=== PATIENT | male | born 1980 | race Caucasian/White ===

== ENCOUNTER 2017-09-21 12:03 | Emergency (ER) | payer BC, OTHER ==
[2017-09-21] MEDS ORDERED: ORPHENADRINE 30 MG/ML 2 ML VIAL IM STA (13:30)
[2017-09-21] MEDS ORDERED: KETOROLAC 60 MG/2 ML VIAL IM STA (13:30)
--- NOTE | 2017-09-21 13:41 | ED ---
General Adult HPI - General Chief complaint: Back Pain/Injury Stated complaint: Back pain Time Seen by Provider: 09/21/17 13:16 Source: patient, RN notes reviewed Mode of arrival: ambulatory Limitations: no limitations - History of Present Illness Initial comments: Patient 37-year-old male who presents emergency room today with chief complaint of increased lower back pain 2 days. He states that he will to sit on a chair that was lower than expected felt pain in his lower back. States that since that time the pain has been increasing is having difficult time with movements of rotation and bending and twisting. Patient doesn't to some pain radiating down into the right leg. Denies any bowel or bladder incontinence retention. Denies any saddle anesthesia. Doesn't that he's had similar symptoms in the past. Patient states she's tried some anti-inflammatories and has not taken anything this morning. Patient denies any recent fever, chills, shortness of breath, chest pain, abdominal pain, nausea or vomiting, dysuria or hematuria, constipation or diarrhea, headaches or visual changes, or any other complaints. - Related Data Previous Rx's Medication Instructions Recorded HYDROcodone/APAP 5-325MG [[place] 1 each PO Q6HR PRN #20 tab 09/05/14 5-325] Ibuprofen [Motrin] 800 mg PO Q8HR PRN #30 tab 09/05/14 Orphenadrine [Norflex] 100 mg PO Q12H PRN #6 tablet.er 09/05/14 Ibuprofen [Motrin] 800 mg PO Q6HR #30 tab 09/21/17 Orphenadrine [Norflex] 100 mg PO Q12H #20 tablet.er 09/21/17 Allergies Allergy/AdvReac Type Severity Reaction Status Date / Time dextromethorphan Allergy Swelling Verified 09/21/17 12:34 diphenhydramine HCl Allergy Swelling Verified 09/21/17 12:34 [From Benadryl] Review of Systems ROS Statement: Those systems with pertinent positive or pertinent negative responses have been documented in the HPI. ROS Other: All systems not noted in ROS Statement are negative. Past Medical History Additional Past Medical History / Comment(s): back pain History of Any Multi-Drug Resistant Organisms: None Reported Past Surgical History: No Surgical Hx Reported Past Psychological History: No Psychological Hx Reported Smoking Status: Former smoker Past Alcohol Use History: Occasional Past Drug Use History: None Reported General Exam - General Exam Comments Initial Comments: General: The patient is awake and alert, in no distress, and does not appear acutely ill. Eye: Pupils are equal, round and reactive to light, extra-ocular movements are intact. No nystagmus. There is normal conjunctiva bilaterally. No signs of icterus. Ears, nose, mouth and throat: There are moist mucous membranes and no oral lesions. Neck: The neck is supple, there is no tenderness or JVD. Cardiovascular: There is a regular rate and rhythm. No murmur, rub or gallop is appreciated. Respiratory: Lungs are clear to auscultation, respirations are non-labored, breath sounds are equal. No wheezes, stridor, rales, or rhonchi. Musculoskeletal: Patient shows limited range of motion due to pain. Pain reproducible with rotation and with bending. No tenderness over thoracic or lumbar spine. No step-off or deformity. No specific bony tenderness. Strength 5/5 in extremities. Sensation intact. Pulses equal bilaterally 2+. Neurological: A&O x 3. CN II-XII intact, There are no obvious motor or sensory deficits. Coordination appears grossly intact. Speech is normal. Skin: Skin is warm and dry and no rashes or lesions are noted. Psychiatric: Cooperative, appropriate mood & affect, normal judgment. Limitations: no limitations Course Vital Signs 09/21/17 12:32 Temperature 97.3 F L Pulse Rate 72 Respiratory 18 Rate Blood Pressure 125/90 O2 Sat by Pulse 97 Oximetry Medical Decision Making - Medical Decision Making Patient given dose of Toradol and Norflex rhythm emergency room. Will be discharged home with anti-inflammatories and muscle relaxers. Advised the muscle relaxant may make him drowsy. Advised follow-up the family doctor for further evaluation and possible MRI if symptoms aren't improving. Advised return here to the emergency room if any symptoms increase or worsen or for any other concerns. Disposition Clinical Impression: Acute low back pain Disposition: HOME SELF-CARE Condition: Good Instructions: Acute Low Back Pain (ED) Additional Instructions: Please use medication as discussed. Please follow-up with family doctor in the next 2 days of symptoms have not improved. Please return to emergency room if the symptoms increase or worsen or for any other concerns. Prescriptions: Ibuprofen [Motrin] 800 mg PO Q6HR #30 tab Orphenadrine [Norflex] 100 mg PO Q12H #20 tablet.er Referrals: None,Stated [Primary Care Provider] - 1-2 days Ana Lilia Nicole DO [Doctor of Osteopathic Medicine] - 1-2 days Time of Disposition: 13:40
[2017-09-21 14:10] VITALS: BP 129/80; PULSE 80; RESP 20; TEMP 97.8
== END 2017-09-21 14:00 | disposition home or self-care (01) ==
LOC: EC 12:03
DX: M54.5 Low back pain (principal); M79.604 Pain in right leg; Z87.891 Personal history of nicotine dependence; Z88.8 Allergy status to other drugs, medicaments and biological substances
CPT/HCPCS: 99283; 96372 ×2; J2360; J1885

== ENCOUNTER 2019-11-02 19:07 | Emergency (ER) | payer BC ==
[2019-11-02 19:13] VITALS: RESP 18
[2019-11-02 19:36] LABS: Basophils # (A) 0.1 k/uL (0-0.2); Basophils % (A) 2 %; Eosinophils # (A) 0.2 k/uL (0-0.7); Eosinophils % (A) 2 %; HCT 45.1 % (39.0-53.0); HGB 15.5 gm/dL (13.0-17.5); Lymphocytes # (A) 2.8 k/uL (1.0-4.8); Lymphocytes % (A) 33 %; MCH 29.1 pg (25.0-35.0); MCHC 34.4 g/dL (31.0-37.0); MCV 84.6 fL (80.0-100.0); Monocytes # (A) 0.4 k/uL (0-1.0); Monocytes % (A) 4 %; Neutrophils # (A) 4.6 k/uL (1.3-7.7); Neutrophils % (A) 56 %; Platelet Count 226 k/uL (150-450); RBC 5.33 m/uL (4.30-5.90); RDW 13.4 % (11.5-15.5); WBC 8.2 k/uL (3.8-10.6)
[2019-11-02 19:50] LABS: ALT 59 U/L (4-49); AST 43 U/L (17-59); African American GFR (CKD) >90 (>60 ml/min/1.73 sqM); Albumin 4.8 g/dL (3.5-5.0); Alkaline Phosphatase 52 U/L (38-126); Anion Gap 9 mmol/L; Blood Urea Nitrogen 17 mg/dL (9-20); Calcium 9.6 mg/dL (8.4-10.2); Carbon Dioxide 26 mmol/L (22-30); Chloride 104 mmol/L (98-107); Glucose 95 mg/dL (74-99); Non-African American GFR(CKD) >90 (>60 ml/min/1.73 sqM); Potassium 4.1 mmol/L (3.5-5.1); Sodium 139 mmol/L (137-145); Total Bilirubin 0.4 mg/dL (0.2-1.3); Total Protein 7.5 g/dL (6.3-8.2)
[2019-11-02 19:57] LABS: D-Dimer <0.17 mg/L FEU (<0.60); INR 0.9 (<1.2); Partial Thromboplastin Time 22.9 sec (22.0-30.0); Prothrombin Time 9.8 sec (9.0-12.0)
--- NOTE | 2019-11-02 20:18 | XR ---
EXAMINATION TYPE: XR chest 2V DATE OF EXAM: 11/02/2019 COMPARISON: NONE HISTORY: Chest tightness TECHNIQUE: FINDINGS: Heart and mediastinum are normal. Lungs are clear. Diaphragm is normal. Bony thorax appears normal. IMPRESSION: Normal chest
--- NOTE | 2019-11-02 21:51 | ED ---
Chest Pain HPI - General Chief Complaint: Chest Pain Stated Complaint: chest tightness Time Seen by Provider: 11/02/19 21:09 Source: patient Mode of arrival: ambulatory - History of Present Illness Initial Comments: This patient is a 39-year-old man who presents to be evaluated for substernal chest tightness that had developed a little over 24 hours ago. Patient states that it had developed after he had come home and tried to go to bed following eating a meal at [employer] with a friend. Complaint: chest pain Onset/Timin -: hour(s) Onset: during rest Pain Location: substernal Pain Radiation: none Severity: moderate Quality: tightness Consistency: constant Improves With: nothing Worsens With: nothing Treatments Prior to Arrival: none - Related Data Previous Rx's Medication Instructions Recorded Ibuprofen [Motrin] 800 mg PO Q6HR #30 tab 09/21/17 Orphenadrine [Norflex] 100 mg PO Q12H #20 tablet.er 09/21/17 Allergies Allergy/AdvReac Type Severity Reaction Status Date / Time dextromethorphan Allergy Swelling Verified 11/02/19 19:13 diphenhydramine HCl Allergy Swelling Verified 11/02/19 19:13 [From Benadryl] Review of Systems ROS Statement: Those systems with pertinent positive or pertinent negative responses have been documented in the HPI. ROS Other: All systems not noted in ROS Statement are negative. Constitutional: Denies: fever, chills Respiratory: Denies: cough, dyspnea, wheezes Cardiovascular: Reports: chest pain. Denies: palpitations, orthopnea, edema, syncope Gastrointestinal: Denies: abdominal pain, nausea, vomiting Musculoskeletal: Denies: back pain Skin: Denies: rash Neurological: Denies: headache, weakness EKG Findings - EKG Results: EKG: interpreted by MADHURI LARA, sinus rhythm (Rate 90 bpm), normal axis, normal QRS, normal ST/T, no acute changes - CA, Pacemaker, Normal: Normal tracing: normal tracing Past Medical History Additional Past Medical History / Comment(s): back pain, History of Any Multi-Drug Resistant Organisms: None Reported Past Surgical History: Orthopedic Surgery Past Psychological History: No Psychological Hx Reported Smoking Status: Former smoker Past Alcohol Use History: Rare Past Drug Use History: None Reported General Exam General appearance: alert, in no apparent distress Head exam: Present: atraumatic, normocephalic Eye exam: Present: normal appearance. Absent: scleral icterus, conjunctival injection ENT exam: Present: normal oropharynx Neck exam: Present: normal inspection Respiratory exam: Present: normal lung sounds bilaterally. Absent: respiratory distress, wheezes, rales, rhonchi, stridor, chest wall tenderness, accessory muscle use Cardiovascular Exam: Present: regular rate, normal rhythm, normal heart sounds. Absent: systolic murmur, diastolic murmur, rubs, gallop GI/Abdominal exam: Present: soft. Absent: distended, tenderness, guarding, rebound, rigid, mass Extremities exam: Present: normal inspection, normal capillary refill. Absent: pedal edema, calf tenderness Back exam: Present: normal inspection. Absent: CVA tenderness (R), CVA tenderness (L) Neurological exam: Present: alert Skin exam: Present: warm, dry, intact, normal color. Absent: rash Course Vital Signs 11/02/19 11/02/19 19:11 21:27 Temperature 97.5 F L Pulse Rate 100 71 Respiratory 18 18 Rate Blood Pressure 156/93 131/84 O2 Sat by Pulse 100 95 Oximetry Disposition Clinical Impression: Chest pain Disposition: HOME SELF-CARE Condition: Good Instructions (If sedation given, give patient instructions): Chest Pain (ED) Is patient prescribed a controlled substance at d/c from ED?: No Referrals: None,Stated [Primary Care Provider] - 1-2 days Saul Espinoza MD [STAFF PHYSICIAN] - 1-2 days
[2019-11-02 22:58] VITALS: BP 125/81; PULSE 64; TEMP 97.7
== END 2019-11-02 22:59 | disposition home or self-care (01) ==
LOC: EC 19:07
DX: R07.9 Chest pain, unspecified (principal); Z87.891 Personal history of nicotine dependence; Z88.8 Allergy status to other drugs, medicaments and biological substances
CPT/HCPCS: 36415; 71046; 80053; 83735; 84484; 85025; 85379; 85610; 85730; 93005; 99285

== ENCOUNTER 2020-06-09 17:24 | Emergency (ER) | payer BC ==
[2020-06-09 17:34] VITALS: RESP 16
[2020-06-09] MEDS ORDERED: SODIUM CHLORIDE 0.9% 1,000 ML IV ONE (19:35)
[2020-06-09 19:48] LABS: Basophils # (A) 0.1 k/uL (0-0.2); Basophils % (A) 1 %; Eosinophils # (A) 0.1 k/uL (0-0.7); Eosinophils % (A) 1 %; HCT 46.2 % (39.0-53.0); HGB 15.4 gm/dL (13.0-17.5); Lymphocytes # (A) 2.5 k/uL (1.0-4.8); Lymphocytes % (A) 23 %; MCH 28.1 pg (25.0-35.0); MCHC 33.3 g/dL (31.0-37.0); MCV 84.4 fL (80.0-100.0); Mean Platelet Volume 7.3; Monocytes # (A) 0.4 k/uL (0-1.0); Monocytes % (A) 4 %; Neutrophils # (A) 7.8 k/uL (1.3-7.7); Neutrophils % (A) 70 %; Platelet Count 232 k/uL (150-450); RBC 5.48 m/uL (4.30-5.90); RDW 13.4 % (11.5-15.5); WBC 11.1 k/uL (3.8-10.6)
--- NOTE | 2020-06-09 19:48 | ED ---
General Adult HPI - General Chief complaint: Headache Stated complaint: sent from urgent care Time Seen by Provider: 06/09/20 18:59 Source: patient, RN notes reviewed, old records reviewed Mode of arrival: ambulatory Limitations: no limitations - History of Present Illness Initial comments: 39-year-old male patient presents to ED for evaluation. Patient reports that the chief reason eyes, the hospitalist at about 3:00 [address] was [address] he states that he had paresthesias which were unilateral on the left side. He reports it lasted about 15 minutes. Patient reports that he had a little bit of blurred vision shortly after she last maybe 5 minutes and then resolved. Patient reports these had a mild waxing and waning frontal lobe headache over the last couple days. Patient also reports that yesterday he had some right-sided pleuritic chest pain which resolved. Patient did hit that area with a car door about a week prior. Denies any chest pain or shortness breath now. Denies any paresthesias headache or blurred vision currently. Patient denies any recent trauma to the head of the neck and also declines a recurrence any facial droop or any weakness in the upper or lower extremities. He does report that the paresthesias didn't involve the left side of the face, as well as the left arm and leg. Systemic: Pt denies fatigue, fever/chills, rash. Pt denies weakness, night sweats, weight loss. Neuro: Pt denies headache, visual disturbances, syncope or pre-syncope. HEENT: Pt denies ocular discharge or irritation, otalgia, rhinorrhea, pharyngitis or notable lymphadenopathy. Cardiopulmonary: Pt denies SOB, heart palpitations, dyspnea on exertion. Abdominal/GI: Pt denies abdominal pain, n/v/d. : Pt denies dysuria, burning w/ urination, frequency/urgency. Denies new onset urinary or bowel incontinence. MSK: Pt denies myalgia, loss of strength or function in extremities. Neuro: Pt denies new onset weakness. - Related Data Home Medications Medication Instructions Recorded Confirmed No Known Home Medications 06/09/20 06/09/20 Allergies Allergy/AdvReac Type Severity Reaction Status Date / Time dextromethorphan Allergy Swelling Verified 06/09/20 19:54 diphenhydramine HCl Allergy Swelling Verified 06/09/20 19:54 [From Benadryl] Review of Systems ROS Statement: Those systems with pertinent positive or pertinent negative responses have been documented in the HPI. ROS Other: All systems not noted in ROS Statement are negative. Past Medical History Additional Past Medical History / Comment(s): back pain, History of Any Multi-Drug Resistant Organisms: None Reported Past Surgical History: Orthopedic Surgery Past Psychological History: No Psychological Hx Reported Smoking Status: Never smoker Past Alcohol Use History: Rare Past Drug Use History: None Reported General Exam - General Exam Comments Initial Comments: Constitutional: NAD, AOX3, Pt has pleasant affect. HEENT: NC/AT, trachea midline, neck supple, no lymphadenopathy. Posterior pharynx non erythematous, without exudates. External ears appear normal, without discharge. Mucous membranes moist. Eyes PERRLA, EOM intact. There is no scleral icterus. No pallor noted. Cardiopulmonary: RRR, no murmurs, rubs or gallops, no JVD noted. Lungs CTAB in anterior and posterior hassan. No peripheral edema. Abdominal exam: Abdomen soft and non-distended. Abdomen non-tender to palpation in all 4 quadrants. Bowel sounds active in LLQ. No hepatosplenomegaly. No ecchymosis Neuro: CN II-XII intact. No nuchal rigidity. No raccon eyes, no simon sign, no hemotympanum. No cervical spinal tenderness. NIH 0. MSK: No posterior calf tenderness bilaterally, homans sign negative bilaterally. Posterior tibialis and radial pulse +2 bilaterally. Sensation intact in upper and lower extremities. Full active ROM in upper and lower extremities, 5/5 stregnth. Limitations: no limitations Course Vital Signs 06/09/20 06/09/20 17:29 19:11 Temperature 97.9 F Pulse Rate 88 93 Respiratory 16 16 Rate Blood Pressure 155/100 149/101 O2 Sat by Pulse 98 98 Oximetry Medical Decision Making - Medical Decision Making 39-year-old male patient presented for evaluation of paresthesias left-sided congestive since resolved. Denying any complaints at time of evaluation. Patient vital signs are stable, afebrile. Physical exam did not display acute pathology. Intact neurologic exam. EKG nonischemic. Laboratory investigations overall noncompressive. D-dimer negative troponin negative. Brain CT without contrast negative. Chest abd pelvis without contrast negative. Angiography CT head and neck negative. Patient's symptoms are consistent with a TIA. He was administered an aspirin. I recommended transfer to facility with neurology coverage this ED declining. Patient splaying adequate decision-making advice. I discussed with patient the risks of which he verbalizes understanding including severe stroke in the stable not. Patient will take an aspirin a day and will follow-up with his primary care provider tomorrow. Patient will be given neurologist's in the area however Patient that we do not have local coverage for neurology. Case discussed with Dr. Tubbs. - Lab Data Result diagrams: 06/09/20 19:28 06/09/20 19:28 Lab Results 06/09/20 06/09/20 06/09/20 Range/Units 19:28 19:28 19:28 WBC 11.1 H (3.8-10.6) k/uL RBC 5.48 (4.30-5.90) m/uL Hgb 15.4 (13.0-17.5) gm/dL Hct 46.2 (39.0-53.0) % MCV 84.4 (80.0-100.0) fL MCH 28.1 (25.0-35.0) pg MCHC 33.3 (31.0-37.0) g/dL RDW 13.4 (11.5-15.5) % Plt Count 232 (150-450) k/uL Neutrophils % 70 % Lymphocytes % 23 % Monocytes % 4 % Eosinophils % 1 % Basophils % 1 % Neutrophils # 7.8 H (1.3-7.7) k/uL Lymphocytes # 2.5 (1.0-4.8) k/uL Monocytes # 0.4 (0-1.0) k/uL Eosinophils # 0.1 (0-0.7) k/uL Basophils # 0.1 (0-0.2) k/uL PT 9.9 (9.0-12.0) sec INR 0.9 (<1.2) APTT 24.3 (22.0-30.0) sec D-Dimer <0.17 (<0.60) mg/L FEU Sodium 140 (137-145) mmol/L Potassium 4.0 (3.5-5.1) mmol/L Chloride 103 (98-107) mmol/L Carbon Dioxide 30 (22-30) mmol/L Anion Gap 7 mmol/L BUN 11 (9-20) mg/dL Creatinine 0.98 (0.66-1.25) mg/dL Est GFR (CKD-EPI)AfAm >90 (>60 ml/min/1.73 sqM) Est GFR (CKD-EPI)NonAf >90 (>60 ml/min/1.73 sqM) Glucose 92 (74-99) mg/dL Calcium 9.5 (8.4-10.2) mg/dL Magnesium 2.3 (1.6-2.3) mg/dL Total Bilirubin 0.4 (0.2-1.3) mg/dL AST 34 (17-59) U/L ALT 48 (4-49) U/L Alkaline Phosphatase 49 (38-126) U/L Troponin I (0.000-0.034) ng/mL NT-Pro-B Natriuret Pep pg/mL Total Protein 7.3 (6.3-8.2) g/dL Albumin 4.8 (3.5-5.0) g/dL Urine Color Urine Appearance (Clear) Urine pH (5.0-8.0) Ur Specific [place] (1.001-1.035) Urine Protein (Negative) Urine Glucose (UA) (Negative) Urine Ketones (Negative) Urine Blood (Negative) Urine Nitrite (Negative) Urine Bilirubin (Negative) Urine Urobilinogen (<2.0) mg/dL Ur Leukocyte Esterase (Negative) 06/09/20 06/09/20 06/09/20 Range/Units 19:28 19:28 19:28 WBC (3.8-10.6) k/uL RBC (4.30-5.90) m/uL Hgb (13.0-17.5) gm/dL Hct (39.0-53.0) % MCV (80.0-100.0) fL MCH (25.0-35.0) pg MCHC (31.0-37.0) g/dL RDW (11.5-15.5) % Plt Count (150-450) k/uL Neutrophils % % Lymphocytes % % Monocytes % % Eosinophils % % Basophils % % Neutrophils # (1.3-7.7) k/uL Lymphocytes # (1.0-4.8) k/uL Monocytes # (0-1.0) k/uL Eosinophils # (0-0.7) k/uL Basophils # (0-0.2) k/uL PT (9.0-12.0) sec INR (<1.2) APTT (22.0-30.0) sec D-Dimer (<0.60) mg/L FEU Sodium (137-145) mmol/L Potassium (3.5-5.1) mmol/L Chloride (98-107) mmol/L Carbon Dioxide (22-30) mmol/L Anion Gap mmol/L BUN (9-20) mg/dL Creatinine (0.66-1.25) mg/dL Est GFR (CKD-EPI)AfAm (>60 ml/min/1.73 sqM) Est GFR (CKD-EPI)NonAf (>60 ml/min/1.73 sqM) Glucose (74-99) mg/dL Calcium (8.4-10.2) mg/dL Magnesium (1.6-2.3) mg/dL Total Bilirubin (0.2-1.3) mg/dL AST (17-59) U/L ALT (4-49) U/L Alkaline Phosphatase (38-126) U/L Troponin I <0.012 (0.000-0.034) ng/mL NT-Pro-B Natriuret Pep 32 pg/mL Total Protein (6.3-8.2) g/dL Albumin (3.5-5.0) g/dL Urine Color Colorless Urine Appearance Clear (Clear) Urine pH 6.0 (5.0-8.0) Ur Specific [place] 1.001 (1.001-1.035) Urine Protein Negative (Negative) Urine Glucose (UA) Negative (Negative) Urine Ketones Negative (Negative) Urine Blood Negative (Negative) Urine Nitrite Negative (Negative) Urine Bilirubin Negative (Negative) Urine Urobilinogen <2.0 (<2.0) mg/dL Ur Leukocyte Esterase Negative (Negative) - EKG Data -: EKG Interpreted by Me (and Dr. Tubbs ) EKG Comments: Ventricular rate 76, NJ interval 172, QRS 86, QT/QTC 370/416. Normal Sinus rhythm, possible septal infarct age undetermined. no concern for acute ischemia at this time. Disposition Clinical Impression: TIA (transient ischemic attack) Disposition: Left Against Medical Advice Condition: Undetermined Instructions (If sedation given, give patient instructions): Transient Ischemic Attack (ED) Additional Instructions: take a daily 325 mg aspirin. Follow-up with primary care provider tomorrow. Follow-up with neurologist's in the area. return to ER if any worsening symptoms. Is patient prescribed a controlled substance at d/c from ED?: No Referrals: None,Stated [Primary Care Provider] - 1-2 days Lucio Mukherjee DO [STAFF PHYSICIAN] - 1-2 days Jennifer Hickman MD [Medical Doctor] - 1-2 days Stephania Edouard MD [REFERRING] - 1-2 days
[2020-06-09 19:54] LABS: Appearance,Urine Clear (Clear); Bilirubin,Urine Negative (Negative); Blood,Urine Negative (Negative); Color,Urine Colorless; Glucose,Urine (UA) Negative (Negative); Ketones,Urine Negative (Negative); Leukocyte Esterase,Urine Negative (Negative); Nitrite,Urine Negative (Negative); Protein,Urine Negative (Negative); Specific Gravity,Urine 1.001 (1.001-1.035); Urobilinogen,Urine <2.0 mg/dL (<2.0)
[2020-06-09 19:57] LABS: ALT 48 U/L (4-49); AST 34 U/L (17-59); African American GFR (CKD) >90 (>60 ml/min/1.73 sqM); Albumin 4.8 g/dL (3.5-5.0); Alkaline Phosphatase 49 U/L (38-126); Anion Gap 7 mmol/L; Blood Urea Nitrogen 11 mg/dL (9-20); Calcium 9.5 mg/dL (8.4-10.2); Carbon Dioxide 30 mmol/L (22-30); Chloride 103 mmol/L (98-107); Glucose 92 mg/dL (74-99); Magnesium 2.3 mg/dL (1.6-2.3); Non-African American GFR(CKD) >90 (>60 ml/min/1.73 sqM); Sodium 140 mmol/L (137-145); Total Bilirubin 0.4 mg/dL (0.2-1.3); Total Protein 7.3 g/dL (6.3-8.2)
[2020-06-09 20:00] LABS: D-Dimer <0.17 mg/L FEU (<0.60); INR 0.9 (<1.2); Partial Thromboplastin Time 24.3 sec (22.0-30.0); Prothrombin Time 9.9 sec (9.0-12.0)
--- NOTE | 2020-06-09 20:03 | CT ---
EXAMINATION TYPE: CT brain wo con DATE OF EXAM: 06/09/2020 COMPARISON: None HISTORY: Left arm tingling and headache. CT DLP: 1143.4 mGycm Automated exposure control for dose reduction was used. Ventricles and sulci appear normal. There is no mass effect nor midline shift. There is no sign of in tracranial hemorrhage. Calvarium is intact. There is no evidence of cerebral edema. Sella turcica maureen ears normal. IMPRESSION: Negative unenhanced head CT scan.
--- NOTE | 2020-06-09 20:18 | CT ---
EXAMINATION TYPE: CT ChestAbdPelvis w con DATE OF EXAM: 06/09/2020 COMPARISON: None HISTORY: Chest and abdominal pain. CT DLP: 2719 mGycm Automated exposure control for dose reduction was used. CONTRAST: Performed with IV Contrast, patient injected with 100ml mL of Isovue 370. Exam performed from the thoracic inlet to the floor the pelvis with IV contrast. FINDINGS: The lungs are clear of consolidation. There is no pleural effusion. There is no mediastinal adenopath y. There are no hilar masses. There is no pericardial effusion. Thoracic aorta is intact. There is no sign of aneurysm or dissection. Liver spleen stomach pancreas gallbladder appear normal. Bile ducts are not dilated. There is no adrenal mass. Kidneys show satisfactory contrast opacification. There is no hydronephrosi s. Ureters are not dilated. Appendix is not seen. There is no sign of thickened appendix. There is no mesenteric edema. There is no ascites or free air. There is no bowel obstruction. The bladder distends smoothly. There is no inguinal hernia. There is no free fluid in the pelvis. The re is no sign of a pelvic mass. Thoracic and lumbar vertebra appear intact. There is no compression fracture. Sternum is intact. Bony pelvis is intact. Delayed images show normal renal excretion. IMPRESSION: Negative CT scan chest abdomen pelvis.
--- NOTE | 2020-06-09 20:34 | CT ---
EXAMINATION TYPE: CT angio head neck DATE OF EXAM: 06/09/2020 COMPARISON: None HISTORY: Left arm tingling and headache. CT DLP: 850.8 mGycm Automated exposure control for dose reduction was used. CONTRAST: Performed with IV Contrast, patient injected with 65ml mL of Isovue 370. There are 3-D post processed images. Images were obtained from the aortic arch to the vertex of the b rain. FINDINGS: There is normal branching pattern of the great vessels on the aortic arch. There is bilateral arteria l flow in the subclavian arteries. There is arterial flow in the vertebral arteries bilaterally. Ther e is arterial flow in the common internal and external carotid arteries bilaterally. There is wide pa tency of the carotid artery bifurcations. There is arterial flow in the anterior middle and posterior cerebral arteries. There is arterial flow in the vertebrobasilar artery system. There is no evidence of intracranial arterial stenosis. There is no aneurysm or neovascularity. There is no mass effect. There is normal contrast opacification of the venous sinuses. IMPRESSION: Normal CT angiogram of the neck. Normal CT angiogram of the brain.
[2020-06-09] MEDS ORDERED: ASPIRIN 325 MG TAB PO STA (20:42)
[2020-06-09 22:43] VITALS: BP 143/102; PULSE 82; TEMP 98
== END 2020-06-09 22:43 | disposition left against medical advice (07) ==
LOC: EC 17:24
DX: G45.9 Transient cerebral ischemic attack, unspecified (principal); Z53.29 Procedure and treatment not carried out because of patient's decision for other reasons; Z88.8 Allergy status to other drugs, medicaments and biological substances
CPT/HCPCS: 36415; 93005; 85379; 83880; 80053; 83735; 84484; 85025; 85610; 85730; 81003; 70496; 70450; 71260; 70498; 74177; 99285; 96360; Q9967

== ENCOUNTER 2020-06-15 00:14 | Observation (INO) | payer BC ==
--- NOTE | 2020-06-15 00:58 | XR ---
EXAMINATION TYPE: XR chest 1V portable DATE OF EXAM: 06/15/2020 COMPARISON: 11/02/2019 HISTORY: Chest pain TECHNIQUE: FINDINGS: Heart and mediastinum are normal. Lungs are clear. Diaphragm is normal. Bony thorax appears normal. There are chest leads. IMPRESSION: Normal chest. No change.
[2020-06-15 01:00] LABS: Basophils # (A) 0.1 k/uL (0-0.2); Basophils % (A) 1 %; Eosinophils # (A) 0.1 k/uL (0-0.7); Eosinophils % (A) 1 %; HCT 43.5 % (39.0-53.0); HGB 15.3 gm/dL (13.0-17.5); Lymphocytes # (A) 2.7 k/uL (1.0-4.8); Lymphocytes % (A) 27 %; MCH 29.2 pg (25.0-35.0); MCHC 35.2 g/dL (31.0-37.0); MCV 82.9 fL (80.0-100.0); Mean Platelet Volume 7.3; Monocytes # (A) 0.6 k/uL (0-1.0); Monocytes % (A) 6 %; Neutrophils # (A) 6.3 k/uL (1.3-7.7); Neutrophils % (A) 63 %; Platelet Count 212 k/uL (150-450); RBC 5.25 m/uL (4.30-5.90); RDW 13.4 % (11.5-15.5)
[2020-06-15 01:09] LABS: ALT 34 U/L (4-49); AST 27 U/L (17-59); African American GFR (CKD) >90 (>60 ml/min/1.73 sqM); Albumin 4.7 g/dL (3.5-5.0); Alkaline Phosphatase 46 U/L (38-126); Anion Gap 11 mmol/L; Blood Urea Nitrogen 14 mg/dL (9-20); Calcium 9.3 mg/dL (8.4-10.2); Carbon Dioxide 22 mmol/L (22-30); Chloride 104 mmol/L (98-107); Glucose 99 mg/dL (74-99); INR 1.1 (<1.2); Non-African American GFR(CKD) >90 (>60 ml/min/1.73 sqM); Partial Thromboplastin Time 24.6 sec (22.0-30.0); Potassium 4.1 mmol/L (3.5-5.1); Prothrombin Time 10.8 sec (9.0-12.0); Sodium 137 mmol/L (137-145); Total Bilirubin 0.8 mg/dL (0.2-1.3); Total Protein 7.1 g/dL (6.3-8.2)
--- NOTE | 2020-06-15 02:09 | ED ---
Chest Pain HPI - General Chief Complaint: Chest Pain Stated Complaint: Chest Tightness Time Seen by Provider: 06/15/20 00:44 Source: EMS Mode of arrival: EMS Limitations: no limitations - History of Present Illness Initial Comments: 's patient is a 39-year-old man who presents to be evaluated for left upper chest pain. Patient states that symptoms came on tonight a couple of hours ago and he had been sleeping and he woke with burning sensation there. Patient did have similar episode a few weeks ago when he also hadn't some tingling and numbness of the extremities and was seen for suspected TIA. Patient states that he had sign out the hospital at that time and has had some concerns ever since. The patient has been having some intermittent chest pains associated with a flushed feeling to his bilateral face ever since he had the suspected TIA. He was directed to follow-up but had not been able to have neurology consultation. He had been seen by his primary physician but had not been entirely satisfied with the progress there and was due to see Dr. Jose Guerrero as a new patient, tomorrow. Complaint: chest pain -: hour(s) Onset: awoke with symptoms Pain Location: left chest Pain Radiation: LUE Severity: moderate Quality: other (Burning) Consistency: now resolved Improves With: nothing Worsens With: nothing Treatments Prior to Arrival: none - Related Data Allergies Allergy/AdvReac Type Severity Reaction Status Date / Time bee venom protein (honey bee) Allergy Swelling Verified 06/15/20 00:21 dextromethorphan Allergy Swelling Verified 06/15/20 00:21 diphenhydramine HCl Allergy Swelling Verified 06/15/20 00:21 [From Benadryl] Review of Systems ROS Statement: Those systems with pertinent positive or pertinent negative responses have been documented in the HPI. ROS Other: All systems not noted in ROS Statement are negative. Constitutional: Denies: fever, chills, weakness Eyes: Denies: vision change Respiratory: Denies: cough, dyspnea Cardiovascular: Reports: as per HPI, chest pain. Denies: palpitations, orthopnea, syncope Gastrointestinal: Denies: abdominal pain, nausea, vomiting, melena, hematochezia Genitourinary: Denies: dysuria, hematuria Musculoskeletal: Denies: back pain Skin: Denies: rash Neurological: Denies: headache, weakness, numbness EKG Findings - EKG Results: EKG: interpreted by MADHURI LARA, sinus rhythm (Rate 71 bpm), normal axis, normal QRS, normal ST/T, no acute changes Past Medical History Additional Past Medical History / Comment(s): back pain, TIA, History of Any Multi-Drug Resistant Organisms: None Reported Past Surgical History: Orthopedic Surgery Past Psychological History: No Psychological Hx Reported Smoking Status: Former smoker Past Alcohol Use History: Rare Past Drug Use History: None Reported General Exam Limitations: no limitations General appearance: alert, in no apparent distress Head exam: Present: atraumatic, normocephalic Eye exam: Present: normal appearance. Absent: scleral icterus, conjunctival injection Neck exam: Present: normal inspection Respiratory exam: Present: normal lung sounds bilaterally. Absent: respiratory distress, wheezes, rales, rhonchi, stridor, chest wall tenderness, accessory muscle use Cardiovascular Exam: Present: regular rate, normal rhythm, normal heart sounds. Absent: systolic murmur, diastolic murmur, rubs, gallop GI/Abdominal exam: Present: soft. Absent: distended, tenderness, guarding, rebound, rigid, mass Extremities exam: Present: normal inspection, normal capillary refill. Absent: pedal edema, calf tenderness Back exam: Present: normal inspection. Absent: CVA tenderness (R), CVA tenderness (L) Neurological exam: Present: alert Skin exam: Present: warm, dry, intact, normal color. Absent: rash Course Vital Signs 06/15/20 06/15/20 06/15/20 00:15 01:12 02:00 Temperature 98.1 F Pulse Rate 83 74 74 Respiratory 18 18 18 Rate Blood Pressure 141/100 133/88 125/83 O2 Sat by Pulse 97 98 98 Oximetry Chest Pain [facility] Patient's 39-year-old man with episode of chest pain that had resolved. He did have a recurrence here in emergency department, ECG was repeated and is normal at this time. As the patient does have extensive family cardiac history, I discussed admission versus outpatient follow-up, and the patient states that given the difficulty of follow-up due to the hand TN, he would first day and this may arranged. Patient stable at time of admission. Dr. Guerrero will accept, as the patient is to establish with him in the morning anyways. Disposition Clinical Impression: Chest pain Disposition: ADMITTED IP TO THIS HOSP Condition: Good Instructions (If sedation given, give patient instructions): Chest Pain (ED) Is patient prescribed a controlled substance at d/c from ED?: No Referrals: Jose Guerrero MD [Primary Care Provider] - 1-2 days
[2020-06-15] MEDS ORDERED: NITROGLYCERIN SL TABS 0.4 MG TAB SUBLINGUAL PRN (02:46)
[2020-06-15 07:39] VITALS: RESP 16
--- NOTE | 2020-06-15 12:28 | P.CRDCN ---
History of Present Illness Consult date: 06/15/20 History of present illness: CHIEF COMPLAINT: Chest pain HISTORY OF PRESENT ILLNESS: This is a 39-year old male with no significant past medical history. Patient follows in the office with Dr. Espinoza. We have been asked to see the patient in consultation for chest pain. Patient examined this morning at the bedside. Patient states he was evaluated in the emergency room on 06/09/2020 secondary to left arm numbness and vision changes. He states he diagnosed with a TIA and placed on aspirin and plavix. Patient presents to the ER with multiple vague symptoms including left arm numbness, facial warmth, and neck pains. He denies any vision difficulty. He currently denies chest pain or shortness of breath. He does report some back discomfort and states he sleeps on his side with his left arm tucked underneath him. Patient was noted to be hypertensive upon admission but his blood pressure is within normal limits this morning. Patient reports he has a history of elevated heart rate when he was evaluated in the emergency room in October 2019 for chest discomfort. However his EKG at that time shows a heart rate in the 90s. He did follow-up with Dr. Espinoza outpatient and underwent a stress test which was negative for significant ischemia. He also had an echocardiogram completed at that time revealing ejection fraction 55% with mild mitral regurgitation and mild tricuspid regurgitation. DIAGNOSTICS: EKG reveals sinus rhythm. Heart rate 71. Chest xray negative for acute process. Laboratory data: WBC 10.0. Hemoglobin 15.3. Platelet count 212. D-dimer less than 0.17. Sodium 137. Potassium 4.1. BUN 14. Creatinine 1.01. Magnesium 2.0. Troponin negative 4 BNP 32. Current home cardiac medications include Plavix 75 mg and aspirin 81 mg daily REVIEW OF SYSTEMS: At the time of my exam: CONSTITUTIONAL: Denies fever or chills. HEENT: Denies blurred vision, vision changes, or eye pain. Denies hemoptysis CARDIOVASCULAR: Denies chest pain, orthopnea, PND or palpitations RESPIRATORY: No shortness of breath. GASTROINTESTINAL: Denies abdominal pain. Denies nausea or vomiting. HEMATOLOGIC: Denies bleeding disorders. GENITOURINARY: Denies any blood in urine. SKIN: Denies pruitis. Denies rash. PHYSICAL EXAM: VITAL SIGNS: Reviewed. GENERAL: Well-developed in no acute distress. HEENT: Head is normocephalic. Pupils are equal, round. Sclerae anicteric. Mucous membranes of the mouth are moist. Neck supple. No JVD or thyromegaly LUNGS: Respirations even and unlabored. Lungs essentially clear to auscultation bilaterally. HEART: Regular rate and rhythm. S1 and S2 heard. ABDOMEN: Soft. Nondistended. Nontender. EXTREMITIES: Normal range of motion. No clubbing or cyanosis. Peripheral pulses intact. No lower extremity edema NEUROLOGIC: Awake and alert. Oriented x 3. ASSESSMENT: Atypical chest pain, no evidence of acute coronary syndrome Left arm numbness and neck pain, likely musculoskeletal in nature Pre-hypertension Questionable history of TIA PLAN: No indications for aspirin and plavix at this time from a cardiac standpoint. Patients history does not sound consistent with TIA. However, will defer to internal medicine if they would like to resume these medications Patient instructed to take his blood pressure on regular basis at home and keep a log. Lifestyle modifications discussed with patient including low salt diet. Will obtain bubble study, if negative patient may be discharged home today from a cardiac standpoint and follow up with Dr. Espinoza. Nurse practitioner note has been reviewed by physician. Signing provider agrees with the documented findings, assessment, and plan of care. Past Medical History Additional Past Medical History / Comment(s): back pain, TIA, high heart rate in 10/2019 had negative stress History of Any Multi-Drug Resistant Organisms: None Reported Past Surgical History: Orthopedic Surgery Additional Past Surgical History / Comment(s): knee surgery Past Anesthesia/Blood Transfusion Reactions: No Reported Reaction Past Psychological History: No Psychological Hx Reported Smoking Status: Former smoker Past Alcohol Use History: Rare Past Drug Use History: None Reported - Past Family History Father Family Medical History: Myocardial Infarction ([place]) Mother Family Medical History: No Reported History Brother(s) Additional Family Medical History / Comment(s): superficial blood clots Daughter(s) Family Medical History: No Reported History Son(s) Additional Family Medical History / Comment(s): L Medications and Allergies Home Medications Medication Instructions Recorded Confirmed Type Aspirin [[place] Aspirin EC] 81 mg PO DAILY 06/15/20 06/15/20 History Clopidogrel Bisulfate [Plavix] 75 mg PO DAILY 06/15/20 06/15/20 History Allergies Allergy/AdvReac Type Severity Reaction Status Date / Time bee venom protein (honey bee) Allergy Swelling Verified 06/15/20 07:40 dextromethorphan Allergy Swelling Verified 06/15/20 07:40 diphenhydramine HCl Allergy Swelling Verified 06/15/20 07:40 [[facility] Physical Exam Vitals: Vital Signs Temp Pulse Pulse Resp BP BP Pulse Ox 06/15/20 08:21 96 06/15/20 07:38 97.7 F 73 16 120/74 97 06/15/20 05:24 97.5 F L 64 18 123/79 98 06/15/20 02:00 74 18 125/83 98 06/15/20 01:12 74 18 133/88 98 06/15/20 00:15 98.1 F 83 18 141/100 97 Intake and Output 06/14/20 06/15/20 06/15/20 22:59 06:59 14:59 Other: Voiding Method Toilet # Voids 1 1 Weight 106.141 kg Results 06/15/20 00:47 06/15/20 00:47 Cardiac Enzymes 06/15/20 06/15/20 06/15/20 Range/Units 00:47 00:47 04:18 AST 27 (17-59) U/L Troponin I <0.012 <0.012 (0.000-0.034) ng/mL 06/15/20 Range/Units 06:59 AST (17-59) U/L Troponin I <0.012 (0.000-0.034) ng/mL Coagulation 06/15/20 Range/Units 00:47 PT 10.8 (9.0-12.0) sec APTT 24.6 (22.0-30.0) sec CBC 06/15/20 Range/Units 00:47 WBC 10.0 (3.8-10.6) k/uL RBC 5.25 (4.30-5.90) m/uL Hgb 15.3 (13.0-17.5) gm/dL Hct 43.5 (39.0-53.0) % Plt Count 212 (150-450) k/uL Comprehensive Metabolic Panel 06/15/20 Range/Units 00:47 Sodium 137 (137-145) mmol/L Potassium 4.1 (3.5-5.1) mmol/L Chloride 104 (98-107) mmol/L Carbon Dioxide 22 (22-30) mmol/L BUN 14 (9-20) mg/dL Creatinine 1.01 (0.66-1.25) mg/dL Glucose 99 (74-99) mg/dL Calcium 9.3 (8.4-10.2) mg/dL AST 27 (17-59) U/L ALT 34 (4-49) U/L Alkaline Phosphatase 46 (38-126) U/L Total Protein 7.1 (6.3-8.2) g/dL Albumin 4.7 (3.5-5.0) g/dL Current Medications Generic Name Dose Route Start Last Admin Trade Name Freq PRN Reason Stop Dose Admin Nitroglycerin 0.4 mg 06/15/20 02:46 Nitroglycerin Sl Tabs 0.4 Mg Tab SUBLINGUAL Q5M PRN Chest Pain Intake and Output 06/14/20 06/15/20 06/15/20 22:59 06:59 14:59 Other: Voiding Method Toilet # Voids 1 1 Weight 106.141 kg 06/15/20 00:47 06/15/20 00:47
[2020-06-15 14:50] VITALS: BP 117/70; PULSE 63; TEMP 97.5
--- NOTE | 2020-06-15 17:37 | HP ---
HISTORY AND PHYSICAL This patient is a 39-year-old white male. He had a stress test in December for chest pain which was negative. He was evaluated a few weeks ago for possible TIA and placed on Plavix and aspirin sounds like a pinched nerve in his neck. He 5-year-old baby and he has been resting with his kids and he gets numbness down his left arm when he lifts the baby overhead or in an extended position and sometimes in the middle of the night. His blood pressure one time in the past but here it has been good. Possibly an anxiety issue he says his says he may have. He had a negative stress test recently, as mentioned above. Labs were reviewed. Fourteen-point review of systems negative except as per HPI. Vital signs reviewed. Temperature 97 to 98, pulse 67, respiratory rate 16 to 18, blood pressure 120s to 140s over 80s to 100s. CARDIOVASCULAR: S1, S2. LUNGS: Transmitted upper airway sounds. Clear. HEART: S1, S2. ABDOMEN: Soft, non-tender. EXTREMITIES: No cyanosis, clubbing, edema. NEUROLOGIC: Alert and oriented x3. OPHTHALMOLOGICAL: Pupils equal, round, reactive. MUSCULOSKELETAL: Tenderness to palpation of paracervical muscles, left greater than right. This is similar to the pain he came into the hospital for. PSYCH: Fair mood and affect. FAMILY HISTORY: Father had myocardial infarction at age 50. Mother negative. Brothers good. Son has some kind of leukemia. HOME MEDICINES: He has been on Plavix and aspirin for the past month or two. PLAN: Possibly work him up for cervical neuritis as an outpatient. He has negative troponins x3. Cardiology cleared him for discharge. I do not see that he has any heart disease or a stroke at all. Likely musculoskeletal from cervical stenosis. He may have pre- hypertension and perhaps he will be worked up for a cervical neuritis as an outpatient. I do not think he had a TIA. Lifestyle modifications. He is going to get a bubble study and then discharged home today after a bubble study for possible discharge. MMODL / IJN: [id number] /
[2020-06-16] MEDS ORDERED: ASPIRIN 325 MG TAB PO SCH (09:00)
[2020-06-16] MEDS ORDERED: ASPIRIN 81 MG PO SCH (09:00)
[2020-06-16] MEDS ORDERED: CLOPIDOGREL 75 MG TAB PO SCH (09:00)
--- NOTE | 2020-06-16 13:00 | ECHOF ---
Referral Reason:elevated BP MEASUREMENTS -------- HEIGHT: 182.9 cm WEIGHT: 106.1 kg BP: RVIDd: 2.7 cm (< 3.3) IVSd: 1.0 cm (0.6 - 1.1) LVIDd: 4.4 cm (3.9 - 5.3) LVPWd: 1.1 cm (0.6 - 1.1) IVSs: 1.3 cm LVIDs: 3.2 cm LVPWs: 1.7 cm LA Diam: 3.3 cm (2.7 - 3.8) LAESV Index (A-L): 22.71 ml/m Ao Diam: 2.9 cm (2.0 - 3.7) AV Cusp: 2.0 cm (1.5 - 2.6) MV EXCURSION: 20.499 mm (> 18.000) MV EF SLOPE: 73 mm/s (70 - 150) EPSS: 0.2 cm MV E Leon: 0.75 m/s MV DecT: 190 ms MV A Leon: 0.57 m/s MV E/A Ratio: 1.33 RAP: 5.00 mmHg RVSP: 16.77 mmHg TAPSE: 26.79 mm FINDINGS -------- Sinus rhythm. This was a techncally difficult study with suboptimal views, , Definity utilized for enhancement of i mages. LV size, wall thickness and systolic function are normal, with an EF greater than 55%. The left zoila tricular size is normal. The right ventricle is normal in size. The left atrial size is normal. Normal LA size by volume 22+/-6 ml/m2. The right atrial size is normal. Bubble Study done to r/o shunt. Lumason used The aortic valve is trileaflet, and appears structurally normal. No aortic stenosis or regurgitation. Mild mitral regurgitation is present. Mild tricuspid regurgitation present. Right ventricular systolic pressure is normal at < 35 mmHg. There is no pulmonic regurgitation present. The aortic root size is normal. There is no pericardial effusion. CONCLUSIONS -------- 1. This was a techncally difficult study with suboptimal views, , Definity utilized for enhancement o f images. 2. LV size, wall thickness and systolic function are normal, with an EF greater than 55%. 3. The left ventricular size is normal. 4. The right ventricle is normal in size. 5. The left atrial size is normal. 6. Normal LA size by volume 22+/-6 ml/m2. 7. The right atrial size is normal. 8. Bubble Study done to r/o shunt. 9. Lumason used 10. Mild mitral regurgitation is present. 11. Mild tricuspid regurgitation present. 12. The aortic root size is normal. 13. There is no pericardial effusion. COPY LATHE OPERATOR: Mariela Terrazas RDCS
== END 2020-06-15 18:45 ==
LOC: EC 00:14 → 1SOBS 02:49
PROVIDERS: ADMIT Family Medicine; ATTEND Family Medicine
DX: R07.89 Other chest pain (principal); R23.2 Flushing; M54.2 Cervicalgia; R20.0 Anesthesia of skin; M54.9 Dorsalgia, unspecified; R03.0 Elevated blood-pressure reading, without diagnosis of hypertension; Z88.8 Allergy status to other drugs, medicaments and biological substances; Z91.030 Bee allergy status; Z87.891 Personal history of nicotine dependence; Z79.899 Other long term (current) drug therapy; Z79.82 Long term (current) use of aspirin; Z79.02 Long term (current) use of antithrombotics/antiplatelets; Z82.49 Family history of ischemic heart disease and other diseases of the circulatory system; Z80.6 Family history of leukemia
CPT/HCPCS: 99285; 36415; 94760; 93005 ×2; 93306; 80053; 83735; 84484; 85025; 85610; 85730; 71045; G0378

== ENCOUNTER → 2020-06-30 | Outpatient (CLI) | payer BC ==
[~2020-06-30] MED LIST: REGADENOSON 0.4 MG/5 ML SYRINGE IV ONE
--- NOTE | 2020-06-30 09:05 | CT ---
EXAMINATION TYPE: CT soft tissue neck w con DATE OF EXAM: 06/30/2020 HISTORY: cervical neuritis and upper chest pain COMPARISON: CTA neck June 09, 2020 CT DLP: 741 mGycm. Automated Exposure Control for Dose Reduction was Utilized. TECHNIQUE: CT scan of the neck is performed with IV Contrast, patient injected with 100 mL of Isovue 300, axial images are obtained, coronal and sagittal reformatted images are reviewed. FINDINGS: Airway: No gross abnormality seen. Parotid/submandibular glands: No gross abnormality seen. Carotid/Vascular Structures: No significant abnormality seen. Osseous Structures: Alignment stable and satisfactory. Vertebral body heights and disc space heights maintained. Spinal canal grossly preserved. Review of axial images shows no suspicious focal neural f oraminal narrowing at any cervical level 2 consultation upper extremity radiculopathy type symptoms. Other: No suspicious greater than 1 cm neck adenopathy. Parapharyngeal fat spaces are maintained bila terally. IMPRESSION: No significant abnormality is seen. No significant change from recent CTA neck study.
--- NOTE | 2020-06-30 13:56 | NM ---
EXAMINATION TYPE: NM stress lexiscan cardiolite DATE OF EXAM: 06/30/2020 COMPARISON: NONE HISTORY: Chest pain, R07.9 TECHNIQUE: After the intravenous administration of 10.4 mCi Tc 99m Sestamibi - Cardiolite resting SP ECT images acquired 45 minutes post injection. The patient received 0.4mg Lexiscan, 25.2 mCi Tc 99m Sestamibi - Stress images obtained [address] injection FINDINGS: Review of stress and rest SPECT images demonstrates no distinct perfusion abnormality. Gated analysi s shows normal wall motion with an estimated left ventricular ejection fraction of 63 %. IMPRESSION: No scintigraphic evidence for reversible ischemia.
== END | disposition home or self-care (01) ==
LOC: RADCTMAIN 07:41
PROVIDERS: ATTEND Family Medicine
DX: R07.9 Chest pain, unspecified (principal); M54.12 Radiculopathy, cervical region
CPT/HCPCS: 93017; 70491; 78452; A9500; J2785; Q9967

== ENCOUNTER 2020-10-15 10:13 | Observation (INO) | payer BC ==
[2020-10-15] MEDS ORDERED: SODIUM CHLORIDE 0.9% 1,000 ML IV STA (10:33)
[2020-10-15 10:51] LABS: Basophils # (A) 0.1 k/uL (0-0.2); Basophils % (A) 1 %; Eosinophils # (A) 0.1 k/uL (0-0.7); Eosinophils % (A) 1 %; HCT 45.8 % (39.0-53.0); HGB 15.3 gm/dL (13.0-17.5); Lymphocytes # (A) 1.5 k/uL (1.0-4.8); Lymphocytes % (A) 24 %; MCH 28.3 pg (25.0-35.0); MCHC 33.3 g/dL (31.0-37.0); MCV 85.1 fL (80.0-100.0); Mean Platelet Volume 7.9; Monocytes # (A) 0.3 k/uL (0-1.0); Monocytes % (A) 4 %; Neutrophils # (A) 4.3 k/uL (1.3-7.7); Neutrophils % (A) 68 %; Platelet Count 196 k/uL (150-450); RBC 5.39 m/uL (4.30-5.90); RDW 13.1 % (11.5-15.5); WBC 6.3 k/uL (3.8-10.6)
[2020-10-15 11:01] LABS: ALT 24 U/L (4-49); AST 23 U/L (17-59); African American GFR (CKD) >90 (>60 ml/min/1.73 sqM); Albumin 4.1 g/dL (3.5-5.0); Alkaline Phosphatase 34 U/L (38-126); Anion Gap 7 mmol/L; Blood Urea Nitrogen 10 mg/dL (9-20); Calcium 9.4 mg/dL (8.4-10.2); Carbon Dioxide 27 mmol/L (22-30); Chloride 105 mmol/L (98-107); Glucose 128 mg/dL (74-99); Magnesium 1.9 mg/dL (1.6-2.3); Non-African American GFR(CKD) >90 (>60 ml/min/1.73 sqM); Potassium 4.4 mmol/L (3.5-5.1); Sodium 139 mmol/L (137-145); Total Bilirubin 0.7 mg/dL (0.2-1.3); Total Protein 6.6 g/dL (6.3-8.2)
[2020-10-15 11:14] LABS: Partial Thromboplastin Time 21.2 sec (22.0-30.0); Prothrombin Time 10.6 sec (9.0-12.0)
[2020-10-15 11:20] LABS: D-Dimer 0.21 mg/L FEU (<0.60)
--- NOTE | 2020-10-15 11:45 | ED ---
General Adult HPI - General Chief complaint: Syncope Stated complaint: Syncope Time Seen by Provider: 10/15/20 10:22 Source: patient, EMS, RN notes reviewed Mode of arrival: EMS Limitations: no limitations - History of Present Illness Initial comments: Is a 40-year-old male presents emergency Department via EMS after syncopal episode. Patient states she's felt off this week he states she's had a few bouts were he states that he started feeling some burning sensation in his chest states that he feels off states that his heart rate elevates at that time. Patient states she's not been doing much this week disease injured his back and has been going to physical therapy. Patient states that today he started getting sensation in his chest states that he looked down and his heart rate was found to be around 128. Patient states that then became very flushed feeling. It isn't a pass out states that he then woke up with his broken. Patient states that he has no current symptoms at this time. He states that his never had this happen the past. Patient had a recent stress test because they thought he had TIA and he was having some chest pain which they found to be related to muscle skeletal pain. Patient is not taking any prescription medications. Denies any prior cardiac disease. - Related Data Home Medications Medication Instructions Recorded Confirmed Aspirin [Citrus Aspirin EC] 81 mg PO DAILY 06/15/20 06/15/20 Clopidogrel Bisulfate [Plavix] 75 mg PO DAILY 06/15/20 06/15/20 Allergies Allergy/AdvReac Type Severity Reaction Status Date / Time bee venom protein (honey bee) Allergy Swelling Verified 06/15/20 07:40 dextromethorphan Allergy Swelling Verified 06/15/20 07:40 diphenhydramine HCl Allergy Swelling Verified 06/15/20 07:40 [From Benadryl] Review of Systems ROS Statement: Those systems with pertinent positive or pertinent negative responses have been documented in the HPI. ROS Other: All systems not noted in ROS Statement are negative. Past Medical History Additional Past Medical History / Comment(s): back pain, TIA, high heart rate in 10/2019 had negative stress History of Any Multi-Drug Resistant Organisms: None Reported Past Surgical History: Orthopedic Surgery Additional Past Surgical History / Comment(s): knee surgery Past Anesthesia/Blood Transfusion Reactions: No Reported Reaction Past Psychological History: No Psychological Hx Reported Smoking Status: Former smoker Past Alcohol Use History: Rare Past Drug Use History: None Reported - Past Family History Father Family Medical History: Myocardial Infarction ([place]) Mother Family Medical History: No Reported History Brother(s) Additional Family Medical History / Comment(s): superficial blood clots Daughter(s) Family Medical History: No Reported History Son(s) Additional Family Medical History / Comment(s): JML General Exam General appearance: alert, in no apparent distress Head exam: Present: atraumatic, normocephalic, normal inspection Eye exam: Present: normal appearance, PERRL, EOMI. Absent: scleral icterus, conjunctival injection, periorbital swelling ENT exam: Present: normal exam, mucous membranes moist Neck exam: Present: normal inspection, full ROM. Absent: tenderness, meningismus, lymphadenopathy Respiratory exam: Present: normal lung sounds bilaterally. Absent: respiratory distress, wheezes, rales, rhonchi, stridor Cardiovascular Exam: Present: regular rate, normal rhythm, normal heart sounds. Absent: systolic murmur, diastolic murmur, rubs, gallop, clicks GI/Abdominal exam: Present: soft, normal bowel sounds. Absent: distended, tenderness, guarding, rebound, rigid Extremities exam: Absent: pedal edema, calf tenderness Course Vital Signs 10/15/20 10:14 Temperature 97.7 F Pulse Rate 71 Respiratory 18 Rate Blood Pressure 134/90 O2 Sat by Pulse 100 Oximetry EKG Findings - EKG Comments: EKG Findings:: EKG performed at 10:38 normal sinus rhythm rate of 69 MI 178 QRS 84 QT/QTC 360/385 Medical Decision Making - Medical Decision Making Labs were reviewed at this time with no significant abnormalities. Patient did have a syncopal episode and was tachycardic at this time. Patient will be admitted for cardiology consult to rule out cardiac arrhythmia. Case discussed with Dr. Guerrero - Lab Data Result diagrams: 10/15/20 10:38 10/15/20 10:38 Lab Results 10/15/20 10/15/20 10/15/20 Range/Units 10:38 10:38 10:38 WBC 6.3 (3.8-10.6) k/uL RBC 5.39 (4.30-5.90) m/uL Hgb 15.3 (13.0-17.5) gm/dL Hct 45.8 (39.0-53.0) % MCV 85.1 (80.0-100.0) fL MCH 28.3 (25.0-35.0) pg MCHC 33.3 (31.0-37.0) g/dL RDW 13.1 (11.5-15.5) % Plt Count 196 (150-450) k/uL MPV 7.9 Neutrophils % 68 % Lymphocytes % 24 % Monocytes % 4 % Eosinophils % 1 % Basophils % 1 % Neutrophils # 4.3 (1.3-7.7) k/uL Lymphocytes # 1.5 (1.0-4.8) k/uL Monocytes # 0.3 (0-1.0) k/uL Eosinophils # 0.1 (0-0.7) k/uL Basophils # 0.1 (0-0.2) k/uL PT 10.6 (9.0-12.0) sec INR 1.0 (<1.2) APTT 21.2 L (22.0-30.0) sec D-Dimer 0.21 (<0.60) mg/L FEU Sodium 139 (137-145) mmol/L Potassium 4.4 (3.5-5.1) mmol/L Chloride 105 (98-107) mmol/L Carbon Dioxide 27 (22-30) mmol/L Anion Gap 7 mmol/L BUN 10 (9-20) mg/dL Creatinine 0.83 (0.66-1.25) mg/dL Est GFR (CKD-EPI)AfAm >90 (>60 ml/min/1.73 sqM) Est GFR (CKD-EPI)NonAf >90 (>60 ml/min/1.73 sqM) Glucose 128 H (74-99) mg/dL Calcium 9.4 (8.4-10.2) mg/dL Magnesium 1.9 (1.6-2.3) mg/dL Total Bilirubin 0.7 (0.2-1.3) mg/dL AST 23 (17-59) U/L ALT 24 (4-49) U/L Alkaline Phosphatase 34 L (38-126) U/L Troponin I (0.000-0.034) ng/mL Total Protein 6.6 (6.3-8.2) g/dL Albumin 4.1 (3.5-5.0) g/dL 10/15/20 Range/Units 10:38 WBC (3.8-10.6) k/uL RBC (4.30-5.90) m/uL Hgb (13.0-17.5) gm/dL Hct (39.0-53.0) % MCV (80.0-100.0) fL MCH (25.0-35.0) pg MCHC (31.0-37.0) g/dL RDW (11.5-15.5) % Plt Count (150-450) k/uL MPV Neutrophils % % Lymphocytes % % Monocytes % % Eosinophils % % Basophils % % Neutrophils # (1.3-7.7) k/uL Lymphocytes # (1.0-4.8) k/uL Monocytes # (0-1.0) k/uL Eosinophils # (0-0.7) k/uL Basophils # (0-0.2) k/uL PT (9.0-12.0) sec INR (<1.2) APTT (22.0-30.0) sec D-Dimer (<0.60) mg/L FEU Sodium (137-145) mmol/L Potassium (3.5-5.1) mmol/L Chloride (98-107) mmol/L Carbon Dioxide (22-30) mmol/L Anion Gap mmol/L BUN (9-20) mg/dL Creatinine (0.66-1.25) mg/dL Est GFR (CKD-EPI)AfAm (>60 ml/min/1.73 sqM) Est GFR (CKD-EPI)NonAf (>60 ml/min/1.73 sqM) Glucose (74-99) mg/dL Calcium (8.4-10.2) mg/dL Magnesium (1.6-2.3) mg/dL Total Bilirubin (0.2-1.3) mg/dL AST (17-59) U/L ALT (4-49) U/L Alkaline Phosphatase (38-126) U/L Troponin I <0.012 (0.000-0.034) ng/mL Total Protein (6.3-8.2) g/dL Albumin (3.5-5.0) g/dL Disposition Clinical Impression: Syncope, Tachycardia, Chest discomfort Disposition: ADMITTED IP TO THIS HOSP Condition: Fair Referrals: Jose Guerrero MD [Primary Care Provider] - 1-2 days
[2020-10-15] MEDS ORDERED: NITROGLYCERIN SL TABS 0.4 MG TAB SUBLINGUAL PRN (12:11)
[2020-10-15] MEDS ORDERED: MELATONIN 5 MG TABLET PO PRN (20:23)
--- NOTE | 2020-10-15 22:27 | HP ---
HISTORY AND PHYSICAL This is a 40-year-old white male who presents after a syncopal episode. He felt he was having a few bouts of heart rate burning into the 140s to 130s. Three or 4 times over the last week or 2, he passed out at which time he came to the hospital. He had pinched nerve a week or 2 ago also. He has never had syncope before like this. He is not taking any beta blockers, but they may be needed with heart rate into the 130s to 150s. MEDICATIONS: Aspirin, Plavix. ALLERGIES: BEE VENOM, BENADRYL, DEXTRA, METFORMIN. PAST MEDICAL HISTORY: Back pain, TIA, tachycardia. SURGERIES: Orthopedic surgery, knee surgery. SOCIAL HISTORY: Former smoker. FAMILY HISTORY: Father with history of myocardial infarction. Brother superficial blood clots. Daughter negative. PHYSICAL EXAMINATION: Alert, no acute distress. Pupils equal, round, reactive. Lungs are clear. Cardiovascular S1, S2. GI soft. Hematology negative Homans. Psych: Fair mood and affect. Neurologic: Alert and oriented x3. Pupils equal, round, reactive. Temperature 97.7, pulse 71, respiratory 16 to 18, blood pressure 134/90. EKG sinus rhythm. His labs were reviewed. Negative troponins x3. Negative D-dimer. Suspect patient may need like a beta michael to prevent tachycardia of unclear etiology. Wait for Cardiology to clear the patient from a syncopal episode. Please see further orders. MMODL / IJN: [id number] /
[2020-10-15] MEDS: IBUPROFEN 600 MG TAB PO PRN (23:08)
[2020-10-16 04:37] LABS: Cholesterol 160 mg/dL (<200); HDL Cholesterol 28 mg/dL (40-60); LDL Cholesterol,Calculated 104 mg/dL (0-99); Triglycerides 142 mg/dL (<150)
[2020-10-16] MEDS: ASCORBIC ACID 500 MG TAB PO SCH (08:51)
[2020-10-16] MEDS: VITAMIN E (DL,TOCOPHERYL ACET) 400 UNIT CAP PO SCH (08:51)
[2020-10-16] MEDS: CYANOCOBALAMIN 500 MCG TAB PO SCH (08:51)
[2020-10-16] MEDS: LACTOBACILLUS ACIDOPH & BULGAR 1 EACH PACKET PO SCH (08:52)
[2020-10-16] MEDS: SODIUM CHLORIDE 0.9% 1,000 ML IV SCH (10:17)
--- NOTE | 2020-10-16 11:07 | P.CRDCN ---
History of Present Illness History of present illness: HISTORY OF PRESENTING ILLNESS This is a pleasant 16-jpto-zti-year-old male with no significant past medical history. He follows in the office with David. We have been asked to see in consultation for syncope. States for the previous one week he has been experiencing intermittent episodes of palpitations. He feels an aching sensation in his chest when he looks at his watch and notices his heart rate is anywhere from 120-140. These episodes are brief and usually last less than a minute. Yesterday morning after waking up and eating breakfast he had an episode and his heart rate read 120. It slowly subsided on its own in a couple minutes later he was standing in the kitchen when he felt an acute onset of extreme heat and flushing and he called out to his that something was happening in the next thing he remembers is being in the back of an ambulance. According to the patient is quite told him that his eyes rolled back in his head and he lost consciousness. He had no seizure-like activity and had no loss of bowel or bladder. On arrival EKG was obtained revealing sinus mechanism heart rate of [address] or T wave abnormalities noted. Thus far telemetry tracings reveal persistent sinus mechanism with no acute arrhythmia. Laboratory data reviewed, CBC unremarkable, d-dimer 0.21, sodium 139, potassium 4.4, creatinine 0.83, magnesium 1.9, cardiac enzymes negative 3, LDL 104 and TSH 1.83. He takes no daily cardiac medications. In May 2020 underwent a Lexiscan stress test that was negative for reversible cardiac ischemia. At that time he had an echocardiogram revealing preserved LV systolic function with ejection fraction 55% with mild mitral regurgitation noted. REVIEW OF SYSTEMS At the time of my exam: CONSTITUTIONAL: Denies fever or chills. CARDIOVASCULAR: Denies chest pain, shortness of breath, orthopnea, PND or palpitations. RESPIRATORY: Denies cough. GASTROINTESTINAL: Denies abdominal pain, diarrhea, constipation, nausea or vomiting. MUSCULOSKELETAL: Denies myalgias. NEUROLOGIC: Denies numbness, tingling, headacbe or weakness. ENDOCRINE: Denies fatigue, weight change, polydipsia or polyurina. GENITOURINARY: Denies burning, hematuria or urgency with micturation. HEMATOLOGIC: Denies history of anemia or bleeding. PHYSICAL EXAMINATION Blood pressure 117/82 heart rate 96 afebrile and maintaining oxygen saturation on room air. CONSTITUTIONAL: No apparent distress. HEENT: Head is normocephalic. Pupils are equal, round. Sclerae anicteric. Mucous membranes of the mouth are moist. No JVD. No carotid bruit. CHEST EXAMINATION: Lungs are clear to auscultation. No chest wall tenderness is noted on palpation or with deep breathing. HEART EXAMINATION: Regular rate and rhythm. S1, S2 heard. No murmurs, gallops or rub. ABDOMEN: Soft, nontender. Positive bowel sounds. EXTREMITIES: 2+ peripheral pulses, no lower extremity edema and no calf tenderness. NEUROLOGIC EXAMINATION: Patient is awake, alert and oriented x3. ASSESSMENT Syncope preceded by palpitations Palpitations PLAN An acute coronary event has been ruled out. Recommend tilt table test to assess for dysautonomia. Increase activity and ambulation while continuing to monitor closely on telemetry for any acute arrhythmia. Telemetry tracings are unremarkable over the next 24 hours we will apply a 30 day event monitor upon discharge. Thank you kindly for this consultation. Nurse Practitioner note has been reviewed, I agree with a documented findings and plan of care. Patient was seen and examined. Past Medical History Past Medical History: CVA/TIA Additional Past Medical History / Comment(s): back pain, TIA, high heart rate in 10/2019 had negative stress, buldging discs History of Any Multi-Drug Resistant Organisms: None Reported Past Surgical History: Orthopedic Surgery Additional Past Surgical History / Comment(s): knee surgery Past Anesthesia/Blood Transfusion Reactions: No Reported Reaction Past Psychological History: No Psychological Hx Reported Smoking Status: Former smoker Past Alcohol Use History: Rare Past Drug Use History: None Reported - Past Family History Father Family Medical History: Myocardial Infarction ([place]) Mother Family Medical History: No Reported History Brother(s) Additional Family Medical History / Comment(s): superficial blood clots Daughter(s) Family Medical History: No Reported History Son(s) Additional Family Medical History / Comment(s): JMML- rare leukemia of the blood Medications and Allergies Home Medications Medication Instructions Recorded Confirmed Type Ascorbic Acid [Vitamin C] 1,000 mg PO DAILY 10/15/20 10/15/20 History Cyanocobalamin [Vitamin B-12] 500 mcg PO DAILY 10/15/20 10/15/20 History Ibuprofen [Motrin] 600 mg PO Q12H PRN 10/15/20 10/15/20 History L.acidoph,Paracasei, B.lactis 1 cap PO DAILY 10/15/20 10/15/20 History [Probiotic] Melatonin 5 mg PO HS PRN 10/15/20 10/15/20 History Vitamin D3 Drops (Unknown Strength) 1 dose PO DAILY 10/15/20 10/15/20 History Vitamin E 400 unit PO DAILY 10/15/20 10/15/20 History Allergies Allergy/AdvReac Type Severity Reaction Status Date / Time bee venom protein (honey bee) Allergy Swelling Verified 10/15/20 12:47 dextromethorphan Allergy Swelling Verified 10/15/20 12:47 diphenhydramine HCl Allergy Swelling Verified 10/15/20 12:47 [From Dulce] Physical Exam Vitals: Vital Signs Temp Pulse Pulse Pulse Pulse Pulse Resp 10/16/20 04:00 97.9 F 73 18 10/16/20 01:50 16 10/15/20 23:25 64 16 10/15/20 20:00 98.0 F 80 97 68 18 10/15/20 15:15 97.2 F L 77 16 10/15/20 13:10 97.2 F L 71 16 10/15/20 12:32 97.8 F 71 18 10/15/20 10:14 97.7 F 71 18 BP BP BP BP BP Pulse Ox 10/16/20 04:00 120/74 98 10/16/20 01:50 10/15/20 23:25 112/67 98 10/15/20 20:00 124/79 132/91 103/63 98 10/15/20 15:15 119/69 96 10/15/20 13:10 123/78 100 10/15/20 12:32 142/78 98 10/15/20 10:14 134/90 100 Intake and Output 10/15/20 10/16/20 10/16/20 22:59 06:59 14:59 Intake Total 1080 540 Balance 1080 540 Intake: Oral 1080 540 Other: Voiding Method Toilet Toilet # Voids 2 1 Weight 90.9 kg Results 10/15/20 10:38 10/15/20 10:38 Cardiac Enzymes 10/15/20 10/15/20 10/15/20 Range/Units 10:38 10:38 13:50 AST 23 (17-59) U/L Troponin I <0.012 <0.012 (0.000-0.034) ng/mL 10/15/20 Range/Units 15:58 AST (17-59) U/L Troponin I <0.012 (0.000-0.034) ng/mL Coagulation 10/15/20 Range/Units 10:38 PT 10.6 (9.0-12.0) sec APTT 21.2 L (22.0-30.0) sec Lipids 10/15/20 Range/Units 10:38 Triglycerides 142 (<150) mg/dL Cholesterol 160 (<200) mg/dL HDL Cholesterol 28 L (40-60) mg/dL CBC 10/15/20 Range/Units 10:38 WBC 6.3 (3.8-10.6) k/uL RBC 5.39 (4.30-5.90) m/uL Hgb 15.3 (13.0-17.5) gm/dL Hct 45.8 (39.0-53.0) % Plt Count 196 (150-450) k/uL Comprehensive Metabolic Panel 10/15/20 Range/Units 10:38 Sodium 139 (137-145) mmol/L Potassium 4.4 (3.5-5.1) mmol/L Chloride 105 (98-107) mmol/L Carbon Dioxide 27 (22-30) mmol/L BUN 10 (9-20) mg/dL Creatinine 0.83 (0.66-1.25) mg/dL Glucose 128 H (74-99) mg/dL Calcium 9.4 (8.4-10.2) mg/dL AST 23 (17-59) U/L ALT 24 (4-49) U/L Alkaline Phosphatase 34 L (38-126) U/L Total Protein 6.6 (6.3-8.2) g/dL Albumin 4.1 (3.5-5.0) g/dL Current Medications Generic Name Dose Route Start Last Admin Trade Name Freq PRN Reason Stop Dose Admin Ascorbic Acid 1,000 mg 10/16/20 09:00 Ascorbic Acid 500 Mg Tab PO DAILY [facility] Cyanocobalamin 500 mcg 10/16/20 09:00 Cyanocobalamin 500 Mcg Tab PO DAILY [facility] Ibuprofen 600 mg 10/15/20 20:23 10/15/20 23:08 Ibuprofen 600 Mg Tab PO 600 mg Q12H PRN Administration Pain Lactobacillus Acidoph/Bulgaricus 1 each 10/16/20 09:00 Lactobacillus Acidoph & Bulgar 1 Each Packet PO DAILY [facility] Melatonin 5 mg 10/15/20 20:23 Melatonin 5 Mg Tablet PO HS PRN Insomnia Nitroglycerin 0.4 mg 10/15/20 12:11 Nitroglycerin Sl Tabs 0.4 Mg Tab SUBLINGUAL Q5M PRN Chest Pain Vitamin E 400 unit 10/16/20 09:00 Vitamin E (Dl,Tocopheryl Acet) 400 Unit Cap PO DAILY [facility] Intake and Output 10/15/20 10/16/20 10/16/20 22:59 06:59 14:59 Intake Total 1080 540 Balance 1080 540 Intake: Oral 1080 540 Other: Voiding Method Toilet Toilet # Voids 2 1 Weight 90.9 kg 10/15/20 10:38 10/15/20 10:38
[2020-10-16] MEDS ORDERED: IV FLUID CONTINUATION 900 ML IV ONE (11:15)
[2020-10-16 14:12] LABS: Hemoglobin A1C 5.3 % (4.0-6.0)
[2020-10-16] MEDS: IBUPROFEN 600 MG TAB PO PRN (16:01)
--- NOTE | 2020-10-16 18:28 | P.EPPROC ---
- EP Procedure Note Electrophysiology Procedure Note: Diagnosis Syncope Twelve-lead EKG Sinus rhythm normal CA narrow QRS no delta waves no epsilon waves Very subtle QRS fractionation in the QRS of lead 3 and aVL Tilt table test per protocol Baseline blood pressure 133/74 mmHg, Baseline heart rate 66 beats a minute Patient was tilted upright at an angle of 70 per protocol Blood pressure remained stable Mild increase in heart rate to about 90 beats a minute in the first 10 minutes Subsequently the maximum heart rate achieved was 100 beats a minute at remained mostly in the 90s When the patient is laid supine the heart rate went back to the 70s Impression Mild orthostatic intolerance, asymptomatic Suggest 2-D echo and Doppler study
--- NOTE | 2020-10-16 20:11 | CT ---
EXAMINATION TYPE: CT lumbar spine wo con DATE OF EXAM: 10/16/2020 COMPARISON: None HISTORY: Low back pain. Lumbar neuritis. CT DLP: 806.2 mGycm Automated exposure control for dose reduction was used. Images were obtained from the level of T12-S2 vertebra without contrast. Lumbar vertebra have normal alignment. Posterior elements are intact. There is no paraspinal mass. Th ere is no compression fracture. Disc spaces are fairly normal. Facet joints are intact. There is no e vidence of spinal stenosis. The lumbar neural foramina are fairly well-maintained. The sacroiliac hammad nts appear intact. I see no bony destructive process. IMPRESSION: Negative CT scan of the lumbar spine. No evidence of lumbar disc herniation or spinal stenosis.
--- NOTE | 2020-10-16 21:55 | PN ---
PROGRESS NOTE This 40-year-old white male comes in with syncope, possibly panic attacks with tachycardia, then he passes out. Cardiology is going to look at his monitor or send him home with a Holter monitor. Tilt table test is suggested. He had an echo in May which was pretty much normal. He might have some odd tachyarrhythmia from unclear etiology. He wants to go home with a Holter monitor prior to going on medicine. He is complaining of severe back pain with numbness down his legs, but CT scan of the lumbar spine is totally normal. He will continue with physical therapy for myofascial syndrome in his lumbar spine. No significant findings have been found so far on his CT scans or his echo or of the head or CT scan of the head, etc. Possibly anxiety- induced. CARDIOVASCULAR: S1, S2. LUNGS: Clear. GI: Soft. MUSCULOSKELETAL: Tenderness to palpation in the lumbar spine. ASSESSMENT: 1. Possible tachyarrhythmia. 2. Irritable bowel syndrome. 3. Syncope. Tilt table test. Prognosis guarded. Follow up as outpatient tomorrow with a 30-day Holter monitor. MMODL / IJN: [id number] /
[2020-10-17] MEDS: IBUPROFEN 600 MG TAB PO PRN (06:16)
[2020-10-17] MEDS: LACTOBACILLUS ACIDOPH & BULGAR 1 EACH PACKET PO SCH (08:24)
[2020-10-17] MEDS: VITAMIN E (DL,TOCOPHERYL ACET) 400 UNIT CAP PO SCH (08:48)
[2020-10-17] MEDS: CYANOCOBALAMIN 500 MCG TAB PO SCH (08:48)
[2020-10-17] MEDS: ASCORBIC ACID 500 MG TAB PO SCH (08:48)
[2020-10-17] MEDS: SODIUM CHLORIDE 0.9% 1,000 ML IV SCH (08:53)
--- NOTE | 2020-10-17 10:28 | P.PN ---
Subjective HISTORY OF PRESENTING ILLNESS This is a pleasant 53-wyos-mrr-year-old male with no significant past medical history. He follows in the office with Dr. Espinoza. He underwent a Tilt table test yesterday that was essentially unremarkable. He has been up and ambulating without any symptoms of dizziness or syncope. Telemetry tracings reveal persistent sinus mechanism with no evidence of arrhythmia or pauses. Blood pressure 122/75 heart rate 65 afebrile maintaining oxygen saturation on room air. PHYSICAL EXAMINATION CONSTITUTIONAL: No apparent distress. HEENT: Head is normocephalic. Pupils are equal, round. Sclerae anicteric. Mucous membranes of the mouth are moist. No JVD. No carotid bruit. CHEST EXAMINATION: Lungs are clear to auscultation. No chest wall tenderness is noted on palpation or with deep breathing. HEART EXAMINATION: Regular rate and rhythm. S1, S2 heard. No murmurs, gallops or rub. EXTREMITIES: 2+ peripheral pulses, no lower extremity edema and no calf tenderness. ASSESSMENT Syncope preceded by palpitations Palpitations PLAN Stable for discharge from cardiac perspective. Recommend outpatient event monitoring for 4 weeks and follow-up appointment with Dr. Espinoza in 5 weeks. Nurse Practitioner note has been reviewed, I agree with a documented findings and plan of care. Patient was seen and examined. Objective - Vital Signs Vital signs: Vital Signs Temp 97.5 F L 10/17/20 08:22 Pulse 65 10/17/20 08:22 Resp 16 10/17/20 08:22 BP 122/75 10/17/20 08:22 Pulse Ox 98 10/17/20 08:22 Intake & Output 10/16/20 10/17/20 10/17/20 18:59 06:59 18:59 Intake Total 530 240 Output Total 0 Balance 530 240 Weight 93.2 kg Intake: IV 50 Oral 480 240 Output: Urine 0 Stool 0 Other: Voiding Method Toilet Toilet Toilet # Voids 4 2 0 # Bowel Movements 0 - Labs CBC & Chem 7: 10/15/20 10:38 10/15/20 10:38
[2020-10-17 11:48] VITALS: BP 124/81; PULSE 68; RESP 16; TEMP 97.6
== END 2020-10-17 13:13 | disposition home or self-care (01) ==
LOC: EC 10:13 → 3SCARD 12:11
PROVIDERS: ADMIT Family Medicine; ATTEND Family Medicine
DX: R55 Syncope and collapse (principal); R00.0 Tachycardia, unspecified; R07.89 Other chest pain; R00.2 Palpitations; K58.9 Irritable bowel syndrome, unspecified; M54.9 Dorsalgia, unspecified; Z79.82 Long term (current) use of aspirin; Z79.02 Long term (current) use of antithrombotics/antiplatelets; Z79.1 Long term (current) use of non-steroidal anti-inflammatories (NSAID); Z88.8 Allergy status to other drugs, medicaments and biological substances; Z91.030 Bee allergy status; Z86.73 Personal history of transient ischemic attack (TIA), and cerebral infarction without residual deficits; Z87.891 Personal history of nicotine dependence; Z82.49 Family history of ischemic heart disease and other diseases of the circulatory system; Z80.6 Family history of leukemia
CPT/HCPCS: 96361 ×2; 96360; 99285; 36415; 93005; 93270; 93660; 85379; 80061; 80053; 84443; 82533; 83735; 84484; 85025; 85610; 85730; 84403; 83036; 72131; G0378 ×3

== ENCOUNTER → 2021-07-14 | Outpatient (CLI) | payer BC ==
[2021-07-14 13:04] LABS: Folate, Serum 13.4 ng/mL (4.40-31.00)
== END | disposition home or self-care (01) ==
LOC: LABWHC1 08:02
PROVIDERS: ATTEND Internal Medicine
DX: G60.9 Hereditary and idiopathic neuropathy, unspecified (principal); R23.2 Flushing
CPT/HCPCS: 36415; 82308; 82607; 82746; 82941; 84586

== ENCOUNTER → 2021-08-07 | Outpatient (CLI) | payer BC ==
--- NOTE | 2021-08-07 14:42 | XR ---
Lumbar spine HISTORY: M54.50, M54.12 3 views of the lumbar spine Correlation to prior exam 09/05/2014 There is some loss of disc height L4-5 and L5-S1 which is thought to have progressed in the interval, there is associated multilevel spondylosis. Sclerosis is present in the posterior elements of lower lumbar spine. Lumbar vertebral bodies show preserved height, alignment, and bone mineralization. IMPRESSION: Degenerative disc disease and facet arthropathy.
--- NOTE | 2021-08-07 14:45 | XR ---
Cervical spine HISTORY: M54.50, M54.12 5 views of the cervical spine Cervical vertebral bodies show preserved height, alignment, and bone mineralization. Some mild loss o f disc at C5-6, there is associated spondylosis. Prevertebral soft tissues are normal. There are face t arthropathy changes. No significant foraminal encroachment. IMPRESSION: Degenerative disc disease and facet arthropathy.
--- NOTE | 2021-08-07 14:48 | XR ---
Sacroiliac joints HISTORY: M54.50, M54.12 4 views of the sacroiliac joints There is no evidence erosion, ankylosis, eburnation. Sacroiliac joints are maintained, bone mineraliz ation is normal. Suspect some mild osteoarthritic change in hips. IMPRESSION: Normal sacroiliac joints. Additional findings above.
--- NOTE | 2021-08-07 14:53 | XR ---
Thoracic spine HISTORY: RO7.89 3 views of the thoracic spine There is multilevel spondylosis. Thoracic vertebral bodies show preserved mineralization, height, ali gnment. T12 and T11 show some mild anterior wedging which is thought to be physiologic. Disc spaces a re maintained. IMPRESSION: Mild thoracic spondylosis.
== END | disposition home or self-care (01) ==
LOC: RADXRMAIN 12:49
PROVIDERS: ATTEND Internal Medicine Rheumatology
DX: M47.814 Spondylosis without myelopathy or radiculopathy, thoracic region (principal); M51.36 Other intervertebral disc degeneration, lumbar region; M47.812 Spondylosis without myelopathy or radiculopathy, cervical region; M50.30 Other cervical disc degeneration, unspecified cervical region
CPT/HCPCS: 72050; 72072; 72100; 72202

== ENCOUNTER → 2021-12-31 | Outpatient (CLI) | payer BC | END | disposition home or self-care (01) | LOC: LABWHC1 08:33 | PROVIDERS: ATTEND Family Medicine | DX: Z53.9 Procedure and treatment not carried out, unspecified reason (principal); G60.9 Hereditary and idiopathic neuropathy, unspecified; E78.49 Other hyperlipidemia; R06.02 Shortness of breath; R55 Syncope and collapse; G45.9 Transient cerebral ischemic attack, unspecified; G62.9 Polyneuropathy, unspecified ==

== ENCOUNTER → 2022-01-02 | Outpatient (CLI) | payer BC ==
[2022-01-02 14:42] LABS: Basophils # (A) 0.06 X 10*3/uL (0.00-0.10); Eosinophils # (A) 0.06 X 10*3/uL (0.04-0.35); HCT 41.2 % (39.6-50.0); HGB 13.5 g/dL (13.0-17.0); Immature Grans, Automated 0.2 %; Lymphocytes # (A) 0.97 X 10*3/uL (0.90-5.00); Lymphocytes % (A) 15.4 %; MCH 29.2 pg (27.0-32.0); MCHC 32.8 g/dL (32.0-37.0); MCV 89.2 fL (80.0-97.0); Mean Platelet Volume 11.5 fL (9.5-12.2); Monocytes # (A) 0.53 X 10*3/uL (0.20-1.00); Monocytes % (A) 8.4 %; NRBC Per 100 WBC 0 /100 WBCS (0.0-0.0); Neutrophils # (A) 4.68 X 10*3/uL (1.80-7.70); Platelet Count 170 X 10*3/uL (140-440); RBC 4.62 X 10*6/uL (4.40-5.60); RDW 13.5 % (11.5-14.5); WBC 6.31 X 10*3/uL (4.50-10.00)
[2022-01-02 15:06] LABS: Protein, Total 6.2 g/dL (6.2-8.2)
[2022-01-02 15:07] LABS: ALT 34 U/L (10-49); AST 28 U/L (14-35); African American GFR (CKD) 111.6 (60.0-200.0); Albumin 4.6 g/dL (3.8-4.9); Alkaline Phosphatase 38 U/L (41-126); BUN/Creat Ratio 15.61 Ratio (12.00-20.00); Carbon Dioxide 23.8 mmol/L (20.0-27.5); Chloride 106 mmol/L (96-109); Chol/HDL Ratio 3.31 Ratio; Glucose 90 mg/dL (70-110); LDL Cholesterol,Calculated 79.7 mg/dL (0.0-131.0); Non-African American GFR(CKD) 96.3 (60.0-200.0); Potassium 4.4 mmol/L (3.5-5.5); Sodium 140 mmol/L (135-145); Total Protein 6.5 g/dL (6.2-8.2)
[2022-01-03 15:56] LABS: Albumin 4.23 g/dL (3.80-4.90); Gamma Globulin 0.66 g/dL (0.70-1.50)
== END | disposition home or self-care (01) ==
LOC: LABWHC1 08:31
PROVIDERS: ATTEND Family Medicine
DX: G60.9 Hereditary and idiopathic neuropathy, unspecified (principal); E78.49 Other hyperlipidemia; R06.02 Shortness of breath
CPT/HCPCS: 36415; 80053; 80061; 82525; 82607; 82785; 83090; 84165; 84207; 84443; 85025; 86001; 86334; 86606; 86609

== ENCOUNTER 2022-03-02 08:44 | Observation (INO) | payer BC ==
--- NOTE | 2022-03-02 09:23 | ED ---
General Adult HPI - General Chief complaint: Arrhythmia/Palpitations Stated complaint: Heartrate dropping in 30s, Leg pain and swelling Time Seen by Provider: 03/02/22 09:01 Source: patient Mode of arrival: ambulatory Limitations: no limitations - History of Present Illness Initial comments: Dictation was produced using [employer] dictation software. please excuse any grammatical, word or spelling errors. Chief Complaint: 41-year-old healthy male presents emergency department for bradycardia and strange symptoms after outpatient steroid infusion History of Present Illness: Is a 41-year-old male states that for the last week he's been having strange symptoms. He states that he had a three-day steroid infusion to treat inflammation to his middle ear. Medication was prescribed by neurologist. Patient states that he's been having weird paresthesias to his lower extremities. The main reason he is in emergency department today because he checked his heart rate this morning is found to be 37. Patient has been exercising regularly especially over the last several weeks. Patient at the bedside is asymptomatic. He does note that his heart will skip a beat and that he can feel his heart rate. He is also told by his to notify us that he isn't having slowly white-colored stools. Patient wears a smart watch. She checked his watch this morning is found to be at a rate of 37 resting heart rate. Patient states he goes to bed with his watch often and his heart rate usually not that low. The ROS documented in this emergency department record has been reviewed and confirmed by me. Those systems with pertinent positive or negative responses have been documented in the HPI. All other systems are other negative and/or noncontributory. PHYSICAL EXAM: General Impression: Alert and oriented x3, not in acute distress HEENT: Normocephalic atraumatic, extra-ocular movements intact, pupils equal and reactive to light bilaterally, mucous membranes moist. Cardiovascular: Heart regular rate and rhythm Chest: Able to complete full sentences, no retractions, no tachypnea Abdomen: abdomen soft, non-tender, non-distended, no organomegaly Musculoskeletal: Pulses present and equal in all extremities, no peripheral ed jason Motor: no focal deficits noted Neurological: CN II-XII grossly intact, no focal motor or sensory deficits noted Skin: Intact with no visualized rashes Psych: Normal affect and mood ED course: 41-year-old male presents emergency department for low heart rate, symptoms of palpitations and intermittent paresthesias to the extremities signs upon arrival are within acceptable limits. Patient's well-appearing at the bedside. He does not have any significant comorbidities. EKG is unremarkable Laboratory evaluation obtained. CBC unremarkable. Coag panel is negative. Metabolic panel is within acceptable limits. Troponin is 0.037 with a lipase of 818. Patient does not have any abdominal pain. Serial EKGs were performed showing a non-sinus bradycardia. No other abnormalities noted. EKG interpretation: Ventricular rate 55,. Interval 116, care is 85, QTC 378. Patient is a non- sinus bradycardia. No DE prolongation, no QTC prolongation, no ST or T-wave changes noted. Overall this EKG is nonspecific. Given patient's clinical presentation and will be admitted to the hospital and cardiology consultation. Patient is agreeable to plan. Suspect myocarditis versus other cardiac inflammatory process. Patient evaluated bedside 11:00 and denies any chest pain. - Related Data Home Medications Medication Instructions Recorded Confirmed Ascorbic Acid [Vitamin C] 1,000 mg PO DAILY 10/15/20 10/15/20 Cyanocobalamin [Vitamin B-12] 500 mcg PO DAILY 10/15/20 10/15/20 Ibuprofen [Motrin] 600 mg PO Q12H PRN 10/15/20 10/15/20 L.acidoph,Paracasei, B.lactis 1 cap PO DAILY 10/15/20 10/15/20 [Probiotic] Melatonin 5 mg PO HS PRN 10/15/20 10/15/20 Vitamin D3 Drops (Unknown Strength) 1 dose PO DAILY 10/15/20 10/15/20 Vitamin E 400 unit PO DAILY 10/15/20 10/15/20 Previous Rx's Medication Instructions Recorded Nitroglycerin Sl Tabs [Nitrostat] 0.4 mg SUBLINGUAL Q5M PRN 90 Days 10/16/20 #90 tab Allergies Allergy/AdvReac Type Severity Reaction Status Date / Time bee venom protein (honey bee) Allergy Swelling Verified 03/02/22 08:52 dextromethorphan Allergy Swelling Verified 03/02/22 08:52 diphenhydramine HCl Allergy Swelling Verified 03/02/22 08:52 [From Benadryl] Review of Systems ROS Statement: Those systems with pertinent positive or pertinent negative responses have been documented in the HPI. ROS Other: All systems not noted in ROS Statement are negative. Past Medical History Past Medical History: CVA/TIA Additional Past Medical History / Comment(s): back pain, TIA, high heart rate in 10/2019 had negative stress, buldging discs History of Any Multi-Drug Resistant Organisms: None Reported Past Surgical History: Orthopedic Surgery Additional Past Surgical History / Comment(s): knee surgery Past Anesthesia/Blood Transfusion Reactions: No Reported Reaction Past Psychological History: No Psychological Hx Reported Smoking Status: Former smoker Past Alcohol Use History: Rare Past Drug Use History: None Reported - Past Family History Father Family Medical History: Myocardial Infarction ([place]) Mother Family Medical History: No Reported History Brother(s) Additional Family Medical History / Comment(s): superficial blood clots Daughter(s) Family Medical History: No Reported History Son(s) Additional Family Medical History / Comment(s): JMML- rare leukemia of the blood General Exam Limitations: no limitations Course Vital Signs 03/02/22 03/02/22 08:45 10:27 Temperature 97.9 F Pulse Rate 59 L 51 L Respiratory 18 16 Rate Blood Pressure 143/85 138/83 O2 Sat by Pulse 98 100 Oximetry Medical Decision Making - Lab Data Result diagrams: 03/02/22 09:15 03/02/22 09:15 Lab Results 03/02/22 03/02/22 03/02/22 Range/Units 09:15 09:15 09:15 WBC 10.5 (3.8-10.6) k/uL RBC 4.56 (4.30-5.90) m/uL Hgb 13.4 (13.0-17.5) gm/dL Hct 40.4 (39.0-53.0) % MCV 88.6 (80.0-100.0) fL MCH 29.4 (25.0-35.0) pg MCHC 33.2 (31.0-37.0) g/dL RDW 13.8 (11.5-15.5) % Plt Count 183 (150-450) k/uL MPV 8.7 Neutrophils % 69 % Lymphocytes % 22 % Monocytes % 7 % Eosinophils % 1 % Basophils % 0 % Neutrophils # 7.3 (1.3-7.7) k/uL Lymphocytes # 2.3 (1.0-4.8) k/uL Monocytes # 0.7 (0-1.0) k/uL Eosinophils # 0.1 (0-0.7) k/uL Basophils # 0.0 (0-0.2) k/uL PT 11.0 (9.0-12.0) sec INR 1.0 (<1.2) APTT 21.7 L (22.0-30.0) sec Sodium 140 (137-145) mmol/L Potassium 3.4 L (3.5-5.1) mmol/L Chloride 105 (98-107) mmol/L Carbon Dioxide 28 (22-30) mmol/L Anion Gap 7 mmol/L BUN 18 (9-20) mg/dL Creatinine 0.97 (0.66-1.25) mg/dL Est GFR (CKD-EPI)AfAm >90 (>60 ml/min/1.73 sqM) Est GFR (CKD-EPI)NonAf >90 (>60 ml/min/1.73 sqM) Glucose 83 (74-99) mg/dL Calcium 8.5 (8.4-10.2) mg/dL Magnesium 2.1 (1.6-2.3) mg/dL Total Bilirubin 0.7 (0.2-1.3) mg/dL AST 43 (17-59) U/L ALT 170 H (4-49) U/L Alkaline Phosphatase 40 (38-126) U/L Troponin I (0.000-0.034) ng/mL Total Protein 6.1 L (6.3-8.2) g/dL Albumin 4.0 (3.5-5.0) g/dL Lipase 818 H (23-300) U/L TSH 2.270 (0.465-4.680) mIU/L 03/02/22 Range/Units 09:15 WBC (3.8-10.6) k/uL RBC (4.30-5.90) m/uL Hgb (13.0-17.5) gm/dL Hct (39.0-53.0) % MCV (80.0-100.0) fL MCH (25.0-35.0) pg MCHC (31.0-37.0) g/dL RDW (11.5-15.5) % Plt Count (150-450) k/uL MPV Neutrophils % % Lymphocytes % % Monocytes % % Eosinophils % % Basophils % % Neutrophils # (1.3-7.7) k/uL Lymphocytes # (1.0-4.8) k/uL Monocytes # (0-1.0) k/uL Eosinophils # (0-0.7) k/uL Basophils # (0-0.2) k/uL PT (9.0-12.0) sec INR (<1.2) APTT (22.0-30.0) sec Sodium (137-145) mmol/L Potassium (3.5-5.1) mmol/L Chloride (98-107) mmol/L Carbon Dioxide (22-30) mmol/L Anion Gap mmol/L BUN (9-20) mg/dL Creatinine (0.66-1.25) mg/dL Est GFR (CKD-EPI)AfAm (>60 ml/min/1.73 sqM) Est GFR (CKD-EPI)NonAf (>60 ml/min/1.73 sqM) Glucose (74-99) mg/dL Calcium (8.4-10.2) mg/dL Magnesium (1.6-2.3) mg/dL Total Bilirubin (0.2-1.3) mg/dL AST (17-59) U/L ALT (4-49) U/L Alkaline Phosphatase (38-126) U/L Troponin I 0.037 H* (0.000-0.034) ng/mL Total Protein (6.3-8.2) g/dL Albumin (3.5-5.0) g/dL Lipase (23-300) U/L TSH (0.465-4.680) mIU/L Disposition Clinical Impression: Bradycardia Disposition: ADMITTED IP TO THIS HOSP Condition: Fair Referrals: Sophia Ornelas MD [Primary Care Provider] - 1-2 days Decision Time: 11:07
[2022-03-02 09:41] LABS: ALT 170 U/L (4-49); AST 43 U/L (17-59); African American GFR (CKD) >90 (>60 ml/min/1.73 sqM); Alkaline Phosphatase 40 U/L (38-126); Anion Gap 7 mmol/L; Blood Urea Nitrogen 18 mg/dL (9-20); Calcium 8.5 mg/dL (8.4-10.2); Carbon Dioxide 28 mmol/L (22-30); Chloride 105 mmol/L (98-107); Glucose 83 mg/dL (74-99); Lipase 818 U/L (23-300); Magnesium 2.1 mg/dL (1.6-2.3); Non-African American GFR(CKD) >90 (>60 ml/min/1.73 sqM); Potassium 3.4 mmol/L (3.5-5.1); Sodium 140 mmol/L (137-145); Total Bilirubin 0.7 mg/dL (0.2-1.3); Total Protein 6.1 g/dL (6.3-8.2)
[2022-03-02 09:47] LABS: Basophils % (A) 0 %; Eosinophils # (A) 0.1 k/uL (0-0.7); Eosinophils % (A) 1 %; HCT 40.4 % (39.0-53.0); HGB 13.4 gm/dL (13.0-17.5); Lymphocytes # (A) 2.3 k/uL (1.0-4.8); Lymphocytes % (A) 22 %; MCH 29.4 pg (25.0-35.0); MCHC 33.2 g/dL (31.0-37.0); MCV 88.6 fL (80.0-100.0); Mean Platelet Volume 8.7; Monocytes # (A) 0.7 k/uL (0-1.0); Monocytes % (A) 7 %; Neutrophils # (A) 7.3 k/uL (1.3-7.7); Neutrophils % (A) 69 %; Platelet Count 183 k/uL (150-450); RBC 4.56 m/uL (4.30-5.90); RDW 13.8 % (11.5-15.5); WBC 10.5 k/uL (3.8-10.6)
[2022-03-02 10:03] LABS: Partial Thromboplastin Time 21.7 sec (22.0-30.0)
[2022-03-02] MEDS ORDERED: NALOXONE 0.4 MG/ML 1 ML VIAL IV PRN (11:04)
[2022-03-02] MEDS ORDERED: SODIUM CHLORIDE 0.9% 1,000 ML IV SCH ×2 (11:15→13:45)
[2022-03-02] MEDS ORDERED: NITROGLYCERIN SL TABS 0.4 MG TAB SUBLINGUAL STA (11:57)
[2022-03-02] MEDS ORDERED: ASPIRIN 325 MG TAB PO SCH (12:00)
[2022-03-02] MEDS ORDERED: ATORVASTATIN 80 MG TAB PO STA (13:32)
[2022-03-02] MEDS ORDERED: NITROGLYCERIN OINT 1 INCH/GM PACKET TOPICAL STA (13:34)
[2022-03-02] MEDS ORDERED: HEPARIN SODIUM 1,000 UN/ML (10ML VL) IV ONE (13:36)
[2022-03-02] MEDS ORDERED: HEPARIN SODIUM 1,000 UN/ML (10ML VL) IV PRN (13:36)
[2022-03-02] MEDS ORDERED: MORPHINE SULFATE 2 MG/ML SYRINGE IVP PRN (13:36)
[2022-03-02] MEDS ORDERED: HEPARIN SOD,PORK IN 0.45% NACL 25,000 UNIT in 0.45% NACL 1 250ML.BAG IV SCH (13:45)
[2022-03-02 13:59] LABS: Basophils % (A) 0 %; Eosinophils # (A) 0.1 k/uL (0-0.7); Eosinophils % (A) 1 %; HCT 37.4 % (39.0-53.0); HGB 12.7 gm/dL (13.0-17.5); Lymphocytes # (A) 2.2 k/uL (1.0-4.8); Lymphocytes % (A) 24 %; MCH 30.2 pg (25.0-35.0); MCHC 33.9 g/dL (31.0-37.0); MCV 89.1 fL (80.0-100.0); Mean Platelet Volume 9.8; Monocytes # (A) 0.6 k/uL (0-1.0); Monocytes % (A) 6 %; Neutrophils # (A) 6.2 k/uL (1.3-7.7); Neutrophils % (A) 67 %; Platelet Count 155 k/uL (150-450); WBC 9.2 k/uL (3.8-10.6)
[2022-03-02] MEDS ORDERED: Potassium Replacement Protocol 1 EACH MISC MISCELLANE PRN (14:10)
[2022-03-02 14:25] LABS: INR 1.1 (<1.2); Prothrombin Time 11.4 sec (9.0-12.0)
[2022-03-02] MEDS: POTASSIUM CHLORIDE ER 20 MEQ TAB.ER PO SCH (15:47)
[2022-03-02] MEDS: SODIUM CHLORIDE 0.9% 1,000 ML IV SCH ×2 (16:00→22:00)
--- NOTE | 2022-03-02 18:23 | P.HPIM ---
History of Present Illness H&P Date: 03/02/22 Chief Complaint: Bradycardia 41-year-old male states that for the last week he's been having strange symptoms. He states that he had a three-day steroid infusion to treat inf lammation to his middle ear. Medication was prescribed by neurologist. Patient states that he's been having weird paresthesias to his lower extremities. The main reason he is in emergency department today because he checked his heart rate this morning is found to be 37. Patient has been exercising regularly especially over the last several weeks. Patient at the bedside is asymptomatic. He does note that his heart will skip a beat and that he can feel his heart rate. He is also told by his to notify us that he isn't having slowly white-colored stools. Patient wears a smart watch. She checked his watch this morning is found to be at a rate of 37 resting heart rate. Patient states he goes to bed with his watch often and his heart rate usually not that low. Patient denies any nausea, vomiting or abdominal pain EKG interpretation: Ventricular rate 55,. Interval 116, care is 85, QTC 378. Patient is a non- sinus bradycardia. No NE prolongation, no QTC prolongation, no ST or T-wave changes noted. Overall this EKG is nonspecific. Blood work completed in ED reveals a WBC of 10.5, hemoglobin 13.4, hematocrit of 40.4 and platelet count of 183; sodium 140, potassium 3.4, BUN/creatinine of 18/0.97; ALT of 170; lipase of 818; Troponin I 0.037 Review of Systems REVIEW OF SYSTEMS: CONSTITUTIONAL: No fever, no malaise, no fatigue. HEENT: No recent visual problems or hearing problems. Denied any sore throat. CARDIOVASCULAR: No chest pain, orthopnea, PND, no palpitations, no syncope. PULMONARY: No shortness of breath, no cough, no hemoptysis. GASTROINTESTINAL: No diarrhea, no nausea, no vomiting, no abdominal pain. NEUROLOGICAL: No headaches, no weakness, no numbness. HEMATOLOGICAL: Denies any bleeding or petechiae. GENITOURINARY: Denies any burning micturition, frequency, or urgency. MUSCULOSKELETAL/RHEUMATOLOGICAL: Denies any joint pain, swelling, or any muscle pain. ENDOCRINE: Denies any polyuria or polydipsia. The rest of the 14-point review of systems is negative. Past Medical History Past Medical History: CVA/TIA Additional Past Medical History / Comment(s): back pain, TIA, high heart rate in 10/2019 had negative stress, buldging discs History of Any Multi-Drug Resistant Organisms: None Reported Past Surgical History: Orthopedic Surgery Additional Past Surgical History / Comment(s): knee surgery Past Anesthesia/Blood Transfusion Reactions: No Reported Reaction Past Psychological History: No Psychological Hx Reported Smoking Status: Former smoker Past Alcohol Use History: Rare Past Drug Use History: None Reported - Past Family History Father Family Medical History: Myocardial Infarction ([place]) Mother Family Medical History: No Reported History Brother(s) Additional Family Medical History / Comment(s): superficial blood clots Daughter(s) Family Medical History: No Reported History Son(s) Additional Family Medical History / Comment(s): JMML- rare leukemia of the blood Medications and Allergies Home Medications Medication Instructions Recorded Confirmed Type predniSONE See Taper PO DAILY 03/02/22 03/02/22 History Allergies Allergy/AdvReac Type Severity Reaction Status Date / Time bee venom protein (honey bee) Allergy Anaphylaxis Verified 03/02/22 11:54 dextromethorphan Allergy Anaphylaxis Verified 03/02/22 11:54 diphenhydramine HCl Allergy Anaphylaxis Verified 03/02/22 11:54 [From Benadryl] Physical Exam Vitals: Vital Signs Temp Pulse Resp BP Pulse Ox 03/02/22 12:05 57 L 16 130/78 98 03/02/22 11:30 48 L 16 140/91 98 03/02/22 10:27 51 L 16 138/83 100 03/02/22 08:45 97.9 F 59 L 18 143/85 98 Intake and Output 03/01/22 03/02/22 03/02/22 22:59 06:59 14:59 Other: Weight 92 kg General Impression: Alert and oriented x3, not in acute distress HEENT: Normocephalic atraumatic, extra-ocular movements intact, pupils equal and reactive to light bilaterally, mucous membranes moist. Cardiovascular: Heart regular rate and rhythm Chest: Able to complete full sentences, no retractions, no tachypnea Abdomen: abdomen soft, non-tender, non-distended, no organomegaly Musculoskeletal: Pulses present and equal in all extremities, no peripheral edema Motor: no focal deficits noted Neurological: CN II-XII grossly intact, no focal motor or sensory deficits noted Skin: Intact with no visualized rashes Results CBC & Chem 7: 03/02/22 13:42 03/02/22 09:15 Labs: Abnormal Lab Results - Last 24 Hours (Table) 03/02/22 03/02/22 03/02/22 Range/Units 09:15 09:15 09:15 APTT 21.7 L (22.0-30.0) sec Potassium 3.4 L (3.5-5.1) mmol/L ALT 170 H (4-49) U/L Troponin I 0.037 H* (0.000-0.034) ng/mL Total Protein 6.1 L (6.3-8.2) g/dL Lipase 818 H (23-300) U/L 03/02/22 Range/Units 12:00 APTT (22.0-30.0) sec Potassium (3.5-5.1) mmol/L ALT (4-49) U/L Troponin I 0.040 H* (0.000-0.034) ng/mL Total Protein (6.3-8.2) g/dL Lipase (23-300) U/L Assessment and Plan Assessment: 1. Elevated troponin; troponin elevated at 0.037 in the ED - Right on the floor patient complaint of chest pain; in view of elevated troponin and new onset chest pain patient was started on IV heparin; morphine 2 mg IV every 4 hours when necessary - Cardiology to further recommendations 2. Bradycardia; patient currently not on any rate lowering medications; patient has been placed on telemetry; cardiology is to see her make further recommendations 3. Elevated lipase; lipase is elevated at 818; patient denies any complaint of abdominal pain; patient has been placed on IV fluids; currently nothing by mouth; we will clinically monitor patient repeat lipase tomorrow morning; Start patient on Protonix 40 mg IV daily 4. History of TIA/CVA; currently not on aspirin or statin therapy DVT prophylaxis; IV heparin CODE STATUS; full code
[2022-03-02] MEDS: PANTOPRAZOLE 40 MG/10 ML VIAL IVP SCH (18:34)
--- NOTE | 2022-03-02 19:06 | P.CRDCN ---
History of Present Illness History of present illness: This is Dr. 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 EKG is normal and his symptomatology is not consistent with angina or CAD Low atrial focus/Coronary sinus rhythm intermittently Management of pancreatitis, nothing by mouth IV fluids Heparin statins aspirin have all been discontinued Imaging of the gallbladder and the liver with an abdominal ultrasound to look for gallbladder disease and gallstones although about 2 years back his computed tomography scan did not show any evidence for this CT of the abdomen to evaluate the pancreas Consideration for a follow-up MRI of the pancreas on Friday Follow lipase levels daily Repeat troponin tomorrow CRP and ESR Echo and Doppler study HPI 38-year-old male patient presents to the ED initially with a feeling that his heart rate is very slow based on his upper watch with palpitations/pounding in the neck repeatedly for the last one days prior to admission Unusual symptoms after outpatient steroid infusion Last week on Friday and Friday he had pulsed Andrew prednisolone IV infusion for an hour each. At this time I don't know the dose This was an outpatient neurology office He felt well on all those 3 days On he went for a bike ride. He normally exercises quite a bit. He felt tightening of his muscles. He felt firm and painful but not swollen. Dorsiflexion of the feet resultant pain. Thereafter he was heading for race and went for 1 mile warmup. He states he was a bit short of breath and his legs hurt. He is normally able to finish the warmup in about 8 minutes but on he struggled to make it by even 10 minutes. His abdomen what shows that he reached his peak heart rate very early during exercise. After that in the evening both his feet hurt quite a bit On Friday when he woke up he had no further for pain but once again towards the end of the leg and foot pain returned bilaterally and he felt "loopy" by the evening and exhausted and slipped off at 6:30 PM on Friday. On Friday he woke up in the middle of the night and he found himself sweating but without any fever or chills Once again in the morning he noticed that his heart rate was in the 30s. He did a few jumping jacks but his heart rate increased only to the 60s Once again he started feeling palpitations in the throat and this coincided with a slow heart rate Any came to the hospital he also described epigastric discomfort. There was no chest discomfort no nausea no vomiting or abdominal cramps. He also described white stools He is also had headaches off and on this week is a mild, fleeting in the right frontal area Twelve-lead EKG shows supraventricular rhythm with intermittent negative the waves in the inferior leads consistent with a low atrial focus/coronary sinus rhythm with a short [place] interval, heart rate in the 50s ROS: No fever chills or rigors, no cough, phlegm or expectoration, no nausea, vomiting or diarrhea, no hematuria, dysuria, + musculoskeletal complaints, no strokes or seizures, no skin lesions. EXAMINATION: Normal blood pressure 138/83 140/90 130/78 121/80 and 143/80 time Pulse rate in the 50s afebrile Normal heart sounds Very mild strictly epigastric discomfort which does not radiate anywhere Clear lungs No swelling the legs no pain in the calf muscles no swelling no cellulitis REVIEW OF LABS, ECG & MEDICAL DATA On this admission his white count was normal, hemoglobin is normal platelets and normal differential was normal D-dimer is normal at 0.35 Sodium normal, potassium 3.4 BUN 18 creatinine 0.97 Calcium normal at 8.5 magnesium normal line AST 43 ALT 170 alkaline phosphatase 40 Total CK 88 Troponins borderline abnormal at 0.037 and 0.040 Low total protein of 6.1 Normal TSH Abnormally elevated lipase at 818 Past labs include gastrin level was low Vasoactive intestinal polypeptide normal Triglycerides normal at 104 Low alpha-2 globulin Low gamma globulin [id number] normal In May 2020. Normal CT abdomen Liver spleen gallbladder pancreatitis and stomach were normal. Bile ducts were not dilated 2-D echo in May 2020 was normal Bubble study was negative She's had a syncopal spell in September 2020 Subsequently underwent a tilt table test which demonstrated mild orthostatic intolerance Past Medical History Past Medical History: CVA/TIA Additional Past Medical History / Comment(s): back pain, TIA, high heart rate in 10/2019 had negative stress, buldging discs History of Any Multi-Drug Resistant Organisms: None Reported Past Surgical History: Orthopedic Surgery Additional Past Surgical History / Comment(s): knee surgery Past Anesthesia/Blood Transfusion Reactions: No Reported Reaction Past Psychological History: No Psychological Hx Reported Smoking Status: Former smoker Past Alcohol Use History: Rare Past Drug Use History: None Reported - Past Family History Father Family Medical History: Myocardial Infarction ([place]) Mother Family Medical History: No Reported History Brother(s) Additional Family Medical History / Comment(s): superficial blood clots Daughter(s) Family Medical History: No Reported History Son(s) Additional Family Medical History / Comment(s): JMML- rare leukemia of the blood Medications and Allergies Home Medications Medication Instructions Recorded Confirmed Type predniSONE See Taper PO DAILY 03/02/22 03/02/22 History Allergies Allergy/AdvReac Type Severity Reaction Status Date / Time bee venom protein (honey bee) Allergy Anaphylaxis Verified 03/02/22 11:54 dextromethorphan Allergy Anaphylaxis Verified 03/02/22 11:54 diphenhydramine HCl Allergy Anaphylaxis Verified 03/02/22 11:54 [From Benadryl] Physical Exam Vitals: Vital Signs Temp Pulse Pulse Resp BP BP Pulse Ox 03/02/22 16:00 98.2 F 61 16 143/89 99 03/02/22 12:45 98.8 F 63 16 121/80 100 03/02/22 12:05 57 L 16 130/78 98 03/02/22 11:30 48 L 16 140/91 98 03/02/22 10:27 51 L 16 138/83 100 03/02/22 08:45 97.9 F 59 L 18 143/85 98 Intake and Output 03/02/22 03/02/22 03/02/22 06:59 14:59 22:59 Intake Total 310 516.063 Balance 310 516.063 Intake: IV 310 500 Invasive Line 1 10 Sodium Chloride 0.9% 1, 300 500 000 ml @ 100 mls/hr IV . Q10H [facility] Rx#:[id number] Intake, IV Titration 16.063 Amount Heparin Sod,Pork in 0.45% 16.063 NaCl 25,000 unit In 0.45 % NaCl 1 250ml.bag @ 10.8 UNITS/KG/HR 9.936 mls/hr IV .Q24H [facility] Rx#: [id number] Other: Weight 92 kg 92 kg Results 03/02/22 13:42 03/02/22 09:15 Cardiac Enzymes 03/02/22 03/02/22 03/02/22 Range/Units 09:15 09:15 12:00 AST 43 (17-59) U/L Troponin I 0.037 H* 0.040 H* (0.000-0.034) ng/mL Coagulation 03/02/22 03/02/22 Range/Units 09:15 13:42 PT 11.0 11.4 (9.0-12.0) sec APTT 21.7 L 23.0 (22.0-30.0) sec CBC 03/02/22 03/02/22 Range/Units 09:15 13:42 WBC 10.5 9.2 (3.8-10.6) k/uL RBC 4.56 4.20 L (4.30-5.90) m/uL Hgb 13.4 12.7 L (13.0-17.5) gm/dL Hct 40.4 37.4 L (39.0-53.0) % Plt Count 183 155 (150-450) k/uL Comprehensive Metabolic Panel 03/02/22 Range/Units 09:15 Sodium 140 (137-145) mmol/L Potassium 3.4 L (3.5-5.1) mmol/L Chloride 105 (98-107) mmol/L Carbon Dioxide 28 (22-30) mmol/L BUN 18 (9-20) mg/dL Creatinine 0.97 (0.66-1.25) mg/dL Glucose 83 (74-99) mg/dL Calcium 8.5 (8.4-10.2) mg/dL AST 43 (17-59) U/L ALT 170 H (4-49) U/L Alkaline Phosphatase 40 (38-126) U/L Total Protein 6.1 L (6.3-8.2) g/dL Albumin 4.0 (3.5-5.0) g/dL Current Medications Generic Name Dose Route Start Last Admin Trade Name Freq PRN Reason Stop Dose Admin Sodium Chloride 1,000 mls @ 100 mls/hr 03/02/22 16:00 03/02/22 16:00 Saline 0.9% IV 100 mls/hr .Q10H [facility] Administration Miscellaneous Information 1 each 03/02/22 14:10 Potassium Replacement Protocol 1 Each Misc MISCELLANE DAILY PRN Per Protocol Protocol Morphine Sulfate 2 mg 03/02/22 13:36 Morphine Sulfate 2 Mg/Ml Syringe IVP Q4HR PRN Pain/Discomfort Naloxone HCl 0.2 mg 03/02/22 11:04 Naloxone 0.4 Mg/Ml 1 Ml Vial IV Q2M PRN Opioid Reversal Pantoprazole Sodium 40 mg 03/02/22 18:30 03/02/22 18:34 Pantoprazole 40 Mg/10 Ml Vial IVP 40 mg DAILY [facility] Administration Intake and Output 03/02/22 03/02/22 03/02/22 06:59 14:59 22:59 Intake Total 310 516.063 Balance 310 516.063 Intake: IV 310 500 Invasive Line 1 10 Sodium Chloride 0.9% 1, 300 500 000 ml @ 100 mls/hr IV . Q10H [facility] Rx#:[id number] Intake, IV Titration 16.063 Amount Heparin Sod,Pork in 0.45% 16.063 NaCl 25,000 unit In 0.45 % NaCl 1 250ml.bag @ 10.8 UNITS/KG/HR 9.936 mls/hr IV .Q24H [facility] Rx#: [id number] Other: Weight 92 kg 92 kg Patient Weight 03/03/22 06:59 Weight 92 kg 03/02/22 13:42 03/02/22 09:15
--- NOTE | 2022-03-02 19:52 | CT ---
EXAMINATION TYPE: CT abdomen wo con DATE OF EXAM: 03/02/2022 COMPARISON: 06/09/2020 HISTORY: Pancreatitis CT DLP: 450.1 mGycm Automated exposure control for dose reduction was used. Images obtained from the diaphragm to the iliac crest with no contrast. Lung bases are clear. No pleural effusion. Heart size is normal. No pericardial effusion. Liver spleen pancreas and gallbladder appear intact. The bile ducts are not dilated. There is no adre nal mass. Kidneys have normal size. No hydronephrosis. Ureters are not dilated. There is no sign of r etroperitoneal adenopathy. Lumbar vertebra appear intact. No compression fracture. Posterior elements are intact. Appendix is posterior and appears normal. No ascites. No free air. No sign of a bowel ob struction. IMPRESSION: Negative exam. No sign of pancreatitis. No adverse change compared to old exam.
[2022-03-02 21:05] LABS: ALT 137 U/L (4-49); AST 30 U/L (17-59); African American GFR (CKD) >90 (>60 ml/min/1.73 sqM); Albumin 3.3 g/dL (3.5-5.0); Alkaline Phosphatase 35 U/L (38-126); Anion Gap 4 mmol/L; Blood Urea Nitrogen 15 mg/dL (9-20); Calcium 7.9 mg/dL (8.4-10.2); Carbon Dioxide 27 mmol/L (22-30); Chloride 107 mmol/L (98-107); Glucose 89 mg/dL (74-99); Non-African American GFR(CKD) >90 (>60 ml/min/1.73 sqM); Sodium 138 mmol/L (137-145); Total Bilirubin 0.6 mg/dL (0.2-1.3); Total Protein 5.2 g/dL (6.3-8.2)
[2022-03-03 08:03] LABS: Basophils % (A) 0 %; Eosinophils # (A) 0.2 k/uL (0-0.7); Eosinophils % (A) 2 %; HCT 43.3 % (39.0-53.0); HGB 13.6 gm/dL (13.0-17.5); Lymphocytes # (A) 2.2 k/uL (1.0-4.8); Lymphocytes % (A) 24 %; MCH 28.8 pg (25.0-35.0); MCHC 31.4 g/dL (31.0-37.0); MCV 91.8 fL (80.0-100.0); Mean Platelet Volume 8.7; Monocytes # (A) 0.5 k/uL (0-1.0); Monocytes % (A) 6 %; Neutrophils % (A) 67 %; Platelet Count 181 k/uL (150-450); RBC 4.72 m/uL (4.30-5.90); RDW 13.6 % (11.5-15.5); WBC 8.9 k/uL (3.8-10.6)
[2022-03-03 08:05] LABS: African American GFR (CKD) >90 (>60 ml/min/1.73 sqM); Anion Gap 6 mmol/L; Blood Urea Nitrogen 14 mg/dL (9-20); Calcium 8.3 mg/dL (8.4-10.2); Carbon Dioxide 27 mmol/L (22-30); Chloride 107 mmol/L (98-107); Glucose 82 mg/dL (74-99); Lipase 104 U/L (23-300); Non-African American GFR(CKD) 85 (>60 ml/min/1.73 sqM); Potassium 4.2 mmol/L (3.5-5.1); Sodium 140 mmol/L (137-145)
[2022-03-03] MEDS: SODIUM CHLORIDE 0.9% 1,000 ML IV SCH (09:57)
[2022-03-03] MEDS: PANTOPRAZOLE 40 MG/10 ML VIAL IVP SCH (09:57)
--- NOTE | 2022-03-03 11:40 | P.PN ---
Subjective Progress Note Date: 03/03/22 This is Eric Vuong NP, I'm dictating on behalf of Dr. Mills's H&P and A&P. Patient was interviewed and examined. Patient is a pleasant 41-year-old male who initially presented to the hospital with complaints of bradycardia, and subsequent found to have a elevated troponin along with some abdominal pain. Lab work is suspicious for pancreatitis, chemically induced by high-dose methylprednisolone infusions. Patient reports today that his abdominal pain is gone, and states that he feels good. Patient had an abdominal CT yesterday that did not demonstrate any acute process. Patient's troponin this morning is back to within normal limits. Patient's lipase is also noted to be normal at this time. GENERAL: Well-appearing, well-nourished and in no acute distress. NECK: Supple without JVD or thyromegaly. LUNGS: Breath sounds clear to auscultation bilaterally. Respiration equal and unlabored. No wheezes, rales or rhonchi. HEART: Regular rate and rhythm without murmurs, rubs or gallops. S1 and S2 heard. EXTREMITIES: Normal range of motion, no edema. No clubbing or cyanosis. Peripheral pulses intact and strong. VITALS: Temp 97.9, pulse 49, respirations 16, blood pressure 135/83, O2 saturation 97% on room air TELEMETRY: Normal sinus rhythm LABS: White count 8.9, hemoglobin 13.6, sodium 140, potassium 4.2, B1 14, creatinine 1.07, lipase 104, troponin 0.030 IMPRESSION/PLAN: 1. Pancreatitis, likely induced by high-dose methylprednisolone therapy- significantly improved, lipase has returned to normal. Okay to advance diet. Continue IV fluids. Recommend continued imaging of the gallbladder and liver with an ultrasound. Recommend MRI of the abdomen tomorrow. 2. Elevated troponins, unclear etiology-no chest pain overnight, EKG remains normal, troponins have resolved. CRP and ESR are within normal limits. Echocardiogram should be completed tomorrow. Further recommendations will be made based on the patient's clinical course and test results. Objective - Vital Signs Vital signs: Vital Signs Temp 97.9 F 03/03/22 04:00 Pulse 49 L 03/03/22 04:00 Resp 16 03/03/22 04:00 BP 135/83 03/03/22 04:00 Pulse Ox 97 06/12/22 04:00 FiO2 Intake & Output 03/02/22 03/03/22 03/03/22 18:59 06:59 18:59 Intake Total 826.063 Balance 826.063 Weight 92 kg Intake: IV 810 Invasive Line 1 10 Sodium Chloride 0.9% 1, 800 000 ml @ 100 mls/hr IV . Q10H [facility] Rx#:[id number] Intake, IV Titration 16.063 Amount Heparin Sod,Pork in 0.45% 16.063 NaCl 25,000 unit In 0.45 % NaCl 1 250ml.bag @ 10.8 UNITS/KG/HR 9.936 mls/hr IV .Q24H [facility] Rx#: [id number] Other: # Voids 3 - Labs CBC & Chem 7: 03/03/22 06:49 03/03/22 06:49 Labs: Abnormal Lab Results - Last 24 Hours (Table) 03/02/22 03/02/22 03/02/22 Range/Units 09:15 09:15 09:15 RBC (4.30-5.90) m/uL Hgb (13.0-17.5) gm/dL Hct (39.0-53.0) % APTT 21.7 L (22.0-30.0) sec Potassium 3.4 L (3.5-5.1) mmol/L Calcium (8.4-10.2) mg/dL ALT 170 H (4-49) U/L Alkaline Phosphatase (38-126) U/L Troponin I 0.037 H* (0.000-0.034) ng/mL Total Protein 6.1 L (6.3-8.2) g/dL Albumin (3.5-5.0) g/dL Lipase 818 H (23-300) U/L 03/02/22 03/02/22 03/02/22 Range/Units 12:00 13:42 19:48 RBC 4.20 L (4.30-5.90) m/uL Hgb 12.7 L (13.0-17.5) gm/dL Hct 37.4 L (39.0-53.0) % APTT (22.0-30.0) sec Potassium (3.5-5.1) mmol/L Calcium 7.9 L (8.4-10.2) mg/dL ALT 137 H (4-49) U/L Alkaline Phosphatase 35 L (38-126) U/L Troponin I 0.040 H* (0.000-0.034) ng/mL Total Protein 5.2 L (6.3-8.2) g/dL Albumin 3.3 L (3.5-5.0) g/dL Lipase (23-300) U/L 03/03/22 Range/Units 06:49 RBC (4.30-5.90) m/uL Hgb (13.0-17.5) gm/dL Hct (39.0-53.0) % APTT (22.0-30.0) sec Potassium (3.5-5.1) mmol/L Calcium 8.3 L (8.4-10.2) mg/dL ALT (4-49) U/L Alkaline Phosphatase (38-126) U/L Troponin I (0.000-0.034) ng/mL Total Protein (6.3-8.2) g/dL Albumin (3.5-5.0) g/dL Lipase (23-300) U/L
[2022-03-04 05:34] VITALS: RESP 16
[2022-03-04] MEDS: PANTOPRAZOLE 40 MG/10 ML VIAL IVP SCH (07:55)
[2022-03-04] MEDS: SODIUM CHLORIDE 0.9% 1,000 ML IV SCH (07:56)
[2022-03-04 10:24] LABS: HCT 44.9 % (39.0-53.0); HGB 14.1 gm/dL (13.0-17.5); MCH 28.6 pg (25.0-35.0); MCHC 31.4 g/dL (31.0-37.0); MCV 90.9 fL (80.0-100.0); Mean Platelet Volume 8.6; Platelet Count 183 k/uL (150-450); RBC 4.94 m/uL (4.30-5.90); RDW 13.5 % (11.5-15.5); WBC 10.3 k/uL (3.8-10.6)
[2022-03-04 11:07] LABS: ALT 101 U/L (4-49); AST 23 U/L (17-59); African American GFR (CKD) >90 (>60 ml/min/1.73 sqM); Alkaline Phosphatase 39 U/L (38-126); Anion Gap 8 mmol/L; Blood Urea Nitrogen 13 mg/dL (9-20); Calcium 8.9 mg/dL (8.4-10.2); Carbon Dioxide 27 mmol/L (22-30); Chloride 106 mmol/L (98-107); Glucose 64 mg/dL (74-99); Non-African American GFR(CKD) >90 (>60 ml/min/1.73 sqM); Potassium 4.4 mmol/L (3.5-5.1); Sodium 141 mmol/L (137-145); Total Protein 6.2 g/dL (6.3-8.2)
--- NOTE | 2022-03-04 11:34 | P.PN ---
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 Patient was admitted to the hospital secondary to bradycardia and elevated lipase. Patient examined this morning at the bedside. He denies any abdominal pain. Denies nausea or vomiting. He is tolerating oral intake. Denies chest pain or pressure. Denies SOB. Denies dizziness or lightheadedness. Telemetry reveals sinus mechanism with a heart rate in the 50-60s. Blood pressure stable. PHYSICAL EXAM: VITAL SIGNS: Reviewed. GENERAL: Well-developed in no acute distress. NECK: Supple. No JVD or thyromegaly LUNGS: Respirations even and unlabored. Lungs essentially clear to auscultation bilaterally. HEART: Regular rate and rhythm. S1 and S2 heard. EXTREMITIES: Normal range of motion. No clubbing or cyanosis. Peripheral pulses intact. No lower extremity edema ASSESSMENT: Epigastric pain with elevated lipase Bradycardia, asymptomatic, etiology unclear Abnormal troponin, etiology unclear, no signs of ischemia on EKG and no complaints of chest pain or pressure PLAN: Continue telemetry monitoring 2D echo ordered. Await results If 2D echo does not reveal any significant abnormalities, patient may be discharged home from a cardiac standpoint and follow up on an outpatient basis Patient will require outpatient stress testing to rule out underlying CAD Further recommendations pending patient course Nurse practitioner note has been reviewed by physician. Signing provider agrees with the documented findings, assessment, and plan of care. Objective - Vital Signs Vital signs: Vital Signs Temp 98.3 F 03/04/22 08:04 Pulse 66 03/04/22 08:04 Resp 16 03/04/22 08:04 BP 145/87 03/04/22 08:04 Pulse Ox 100 03/04/22 08:04 FiO2 Intake & Output 03/03/22 03/04/22 03/04/22 18:59 06:59 18:59 Intake Total 1000 240 130 Balance 1000 240 130 Weight 28 kg Intake: IV 1000 10 Invasive Line 1 10 Sodium Chloride 0.9% 1, 1000 000 ml @ 100 mls/hr IV . Q10H [facility] Rx#:[id number] Oral 240 120 Other: Voiding Method Toilet Toilet # Voids 2 - Labs CBC & Chem 7: 03/04/22 09:18 03/04/22 09:18 Labs: Abnormal Lab Results - Last 24 Hours (Table) 03/04/22 Range/Units 09:18 Glucose 64 L (74-99) mg/dL ALT 101 H (4-49) U/L Total Protein 6.2 L (6.3-8.2) g/dL
[2022-03-04 11:51] VITALS: TEMP 97.8
--- NOTE | 2022-03-04 11:52 | P.PN ---
Subjective Progress Note Date: 03/03/22 41-year-old male states that for the last week he's been having strange symptoms. He states that he had a three-day steroid infusion to treat inflammation to his middle ear. Medication was prescribed by neurologist. Patient states that he's been having weird paresthesias to his lower extremities. The main reason he is in emergency department today because he checked his heart rate this morning is found to be 37. Patient has been exercising regularly especially over the last several weeks. Patient at the bedside is asymptomatic. He does note that his heart will skip a beat and that he can feel his heart rate. He is also told by his to notify us that he isn't having slowly white-colored stools. Patient wears a smart watch. She checked his watch this morning is found to be at a rate of 37 resting heart rate. Patient states he goes to bed with his watch often and his heart rate usu ally not that low. Patient denies any nausea, vomiting or abdominal pain EKG interpretation: Ventricular rate 55,. Interval 116, care is 85, QTC 378. Patient is a non- sinus bradycardia. No CA prolongation, no QTC prolongation, no ST or T-wave changes noted. Overall this EKG is nonspecific. Blood work completed in ED reveals a WBC of 10.5, hemoglobin 13.4, hematocrit of 40.4 and platelet count of 183; sodium 140, potassium 3.4, BUN/creatinine of 18/0.97; ALT of 170; lipase of 818; Troponin I 0.037 03/03/22 Patient is currently resting in bed. Awake alert and oriented.. Denied any complaints of abdominal pain today. Patient is tolerating oral diet and advanced to cardiac diet. Laboratory data showed WBC is 8.9 hemoglobin 13.6 and platelets 181 stent BUN 14 and creatinine 1.07 and lipase level came down to 104.9 down to 0.030. 2-D echo cardiac exam tomorrow. CRP is less than 0.5. Cardiology is on board due to elevated troponin level.. Acute pancreatitis suspected due to high-dose steroid use. Current medications reviewed. Objective - Vital Signs Vital signs: Vital Signs Temp 98.6 F 03/03/22 12:00 Pulse 60 03/03/22 13:54 Resp 16 03/03/22 13:54 BP 139/79 03/03/22 12:00 Pulse Ox 98 03/03/22 12:00 FiO2 Intake & Output 03/02/22 03/03/22 03/03/22 18:59 06:59 18:59 Intake Total 791.939 6137 Balance 377.986 3782 Weight 92 kg Intake: IV 810 1000 Invasive Line 1 10 Sodium Chloride 0.9% 1, 800 1000 000 ml @ 100 mls/hr IV . Q10H [facility] Rx#:[id number] Intake, IV Titration 16.063 Amount Heparin Sod,Pork in 0.45% 16.063 NaCl 25,000 unit In 0.45 % NaCl 1 250ml.bag @ 10.8 UNITS/KG/HR 9.936 mls/hr IV .Q24H [facility] Rx#: [id number] Other: # Voids 3 - Exam PHYSICAL EXAMINATION: Patient is lying in the bed comfortably, no acute distress, awake alert and oriented.. HEENT: Normocephalic. Neck is supple. Pupils reactive. Nostrils clear. Oral cavity is moist. Neck reveals no JVD, carotid bruits, or thyromegaly. CHEST EXAMINATION: Trachea is central. Symmetrical expansion. Lung hassan clear to auscultation and percussion. CARDIAC: Normal S1, S2 with no gallops. No murmurs ABDOMEN: Soft. Bowel sounds normal. No organomegaly. No abdominal bruits. Extremities: reveal no edema. No clubbing or cyanosis Neurologically awake, alert, oriented x3 with well-coordinated movements. No focal deficits noted Skin: No rash or skin lesions. Psychiatric: Coperative. Nonsuicidal Musculoskeletal: No joint swelling or deformity. Normal range of motion. - Labs CBC & Chem 7: 03/04/22 09:18 03/04/22 09:18 Labs: Abnormal Lab Results - Last 24 Hours (Table) 03/02/22 03/03/22 Range/Units 19:48 06:49 Calcium 7.9 L 8.3 L (8.4-10.2) mg/dL ALT 137 H (4-49) U/L Alkaline Phosphatase 35 L (38-126) U/L Total Protein 5.2 L (6.3-8.2) g/dL Albumin 3.3 L (3.5-5.0) g/dL Assessment and Plan Assessment: 1. Elevated troponin; troponin elevated at 0.037 in the ED - in view of elevated troponin and new onset chest pain patient was started on IV heparin; morphine 2 mg IV every 4 hours when necessary. -Elevated troponin level unclear etiology. EKG showed normal sinus rhythm. CRP and ESR within normal limits. - Cardiology has seen the patient is advised to discontinue IV heparin and 2-D echocardiogram was ordered. 2. Bradycardia; patient currently not on any rate lowering medications; patient has been placed on telemetry; TSH within normal limits. cardiology is to see her make further recommendations 3. Acute pancreatitis/Elevated lipase; lipase is elevated at 818; patient denies any complaint of abdominal pain; likely due to high-dose methylprednisolone therapy for [address] of abdomen pelvis is negative exam. No signs of pancreatitis. patient has been placed on IV fluids; repeat lipase level is normalized. Started and advanced or.; Start patient on Protonix 40 mg IV daily 4. History of TIA/CVA; currently not on aspirin or statin therapy DVT prophylaxis; subcu heparin CODE STATUS; full code Time with Patient: Greater than 30
[2022-03-04 15:03] VITALS: BP 135/85; PULSE 69
--- NOTE | 2022-03-04 18:21 | US ---
EXAMINATION TYPE: US abdomen limited DATE OF EXAM: 03/04/2022 COMPARISON: CT 03/02/22 CLINICAL HISTORY: acute pancreatitis. Abnormal enzymes EXAM MEASUREMENTS: Liver Length: 15.2 cm Gallbladder Wall: 0.42 cm CBD: 0.47 cm Right Kidney: 11.2 x 4.3 x 6.0 cm Pancreas: Obscured by bowel gas Liver: wnl Gallbladder: Thickened wall Evidence for sonographic Wallace's sign: no CBD: Appears wnl at 4 mm. Right Kidney: No hydronephrosis or masses seen IMPRESSION: 1. Gallbladder is somewhat decompressed with borderline thickened meadows measuring up to 4 mm. No con vincing evidence for acute cholecystitis. 2. Pancreas is suboptimally visualized due to bowel gas.
--- NOTE | 2022-03-05 18:00 | CA ---
Transthoracic Echo Report Name: Mango Nunez Age: 41 Gender: M : 1980 Exam Date: 03/04/2022 08:39 Exam Location: [facility] Ht (in): 72 Wt (lb): 200 Ordering Physician: Marcio Mills MD ([id number]) Attending/Referring Phys: Green Chain Worker Mariela Terrazas, S[place] Procedure CPT: Indications: LV function Cardiac Hx: No Cardiac HX Technical Quality: Good Contrast 1: Total Dose (mL): Contrast 2: Total Dose (mL): MEASUREMENTS (Male / Female) Normal Values 2D ECHO LV Diastolic Diameter PLAX 4.7 cm 4.2 - 5.9 / 3.9 - 5.3 cm LV Systolic Diameter PLAX 3.4 cm IVS Diastolic Thickness 1.2 cm 0.6 - 1.0 / 0.6 - 0.9 cm LVPW Diastolic Thickness 1.2 cm 0.6 - 1.0 / 0.6 - 0.9 cm LV Relative Wall Thickness 0.5 RV Internal Dim ED PLAX 3.0 cm LA Systolic Diameter LX 3.9 cm 3.0 - 4.0 / 2.7 - 3.8 cm LA Volume 64.4 cm??? 18 - 58 / 22 - 52 cm??? M-MODE Aortic Root Diameter MM 2.9 cm LA Systolic Diameter MM 4.1 cm LA Ao Ratio MM 1.4 MV E Point Septal Separation 0.2 cm AV Cusp Separation MM 1.9 cm DOPPLER MV Area PHT 4.0 cm??? Mitral E Point Velocity 105.5 cm/s Mitral A Point Velocity 63.8 cm/s Mitral E to A Ratio 1.7 MV Deceleration Time 189.4 ms MV E' Velocity 8.5 cm/s Mitral E to MV E' Ratio 12.4 TR Peak Velocity 180.8 cm/s TR Peak Gradient 13.1 mmHg Right Ventricular Systolic Press 18.1 mmHg FINDINGS Left Ventricle Normal left ventricular size, wall thickness, systolic function with no obvious regional wall motion abnormalities. The ejection fraction is visually estimated at 55-60 %. Right Ventricle The right ventricle is normal in size and function. Right Atrium The right atrium is normal in size. Left Atrium The left atrium is normal in size. Mitral Valve Structurally normal mitral valve without significant stenosis or prolapse. There is mild mitral regurgitation. Aortic Valve Structurally normal aortic valve without significant sclerosis or stenosis. There is no aortic regurgitation. Tricuspid Valve Structurally normal tricuspid valve without significant stenosis. Pulmonary artery systolic pressure is normal. Pulmonic Valve Structurally normal pulmonic valve without significant stenosis. There is no pulmonic regurgitation. Pericardium Normal pericardium without effusion. Aorta Normal aortic root dimension. CONCLUSIONS Normal LV size and systolic function. Mild mitral and tricuspid insufficiency and no pericardial effusion Previewed by: Dr. Leobardo Louis MD (Electronically Signed) Final Date: 05 March 2022 17:59
== END 2022-03-04 18:06 | disposition home or self-care (01) ==
LOC: EC 08:44 → 3SCARD 11:04
PROVIDERS: ADMIT Internal Medicine; ATTEND Internal Medicine
DX: K85.90 Acute pancreatitis without necrosis or infection, unspecified (principal); R74.8 Abnormal levels of other serum enzymes; R00.1 Bradycardia, unspecified; R77.8 Other specified abnormalities of plasma proteins; R07.9 Chest pain, unspecified; R20.2 Paresthesia of skin; M54.9 Dorsalgia, unspecified; R00.2 Palpitations; M79.605 Pain in left leg; M79.604 Pain in right leg; M79.672 Pain in left foot; M79.671 Pain in right foot; R19.5 Other fecal abnormalities; M79.89 Other specified soft tissue disorders; I08.1 Rheumatic disorders of both mitral and tricuspid valves; Z86.73 Personal history of transient ischemic attack (TIA), and cerebral infarction without residual deficits; Z87.891 Personal history of nicotine dependence; Z88.8 Allergy status to other drugs, medicaments and biological substances; Z91.030 Bee allergy status; Z82.49 Family history of ischemic heart disease and other diseases of the circulatory system; Z80.6 Family history of leukemia
CPT/HCPCS: 96376 ×3; 96365; 96366 ×2; 96375; 99285; 36415; 93005; 93306; 85379; 80053 ×2; 80048; 85652; 82550; 83690 ×2; 83735; 84443; 84484; 85025 ×2; 85027; 85610; 85730; 86140; 76705; 74150; G0378 ×3; J1644 ×2; C9113 ×3

== ENCOUNTER 2022-04-30 09:50 | Observation (INO) | payer BC ==
[2022-04-30 10:39] LABS: Basophils # (A) 0.1 k/uL (0-0.2); Basophils % (A) 2 %; Eosinophils # (A) 0.1 k/uL (0-0.7); Eosinophils % (A) 2 %; HCT 47.5 % (39.0-53.0); HGB 15.4 gm/dL (13.0-17.5); Lymphocytes # (A) 1.8 k/uL (1.0-4.8); Lymphocytes % (A) 27 %; MCH 28.6 pg (25.0-35.0); MCHC 32.3 g/dL (31.0-37.0); MCV 88.4 fL (80.0-100.0); Monocytes # (A) 0.3 k/uL (0-1.0); Monocytes % (A) 4 %; Neutrophils # (A) 4.1 k/uL (1.3-7.7); Neutrophils % (A) 64 %; Platelet Count 219 k/uL (150-450); RBC 5.37 m/uL (4.30-5.90); RDW 13.3 % (11.5-15.5); WBC 6.5 k/uL (3.8-10.6)
[2022-04-30 10:55] LABS: ALT 27 U/L (4-49); AST 32 U/L (17-59); African American GFR (CKD) >90 (>60 ml/min/1.73 sqM); Albumin 4.9 g/dL (3.5-5.0); Alkaline Phosphatase 41 U/L (38-126); Anion Gap 11 mmol/L; Blood Urea Nitrogen 12 mg/dL (9-20); Calcium 9.5 mg/dL (8.4-10.2); Carbon Dioxide 28 mmol/L (22-30); Chloride 100 mmol/L (98-107); Glucose 132 mg/dL (74-99); Magnesium 1.8 mg/dL (1.6-2.3); Non-African American GFR(CKD) >90 (>60 ml/min/1.73 sqM); Potassium 4.2 mmol/L (3.5-5.1); Sodium 139 mmol/L (137-145); Total Protein 7.5 g/dL (6.3-8.2)
--- NOTE | 2022-04-30 10:55 | XR ---
EXAMINATION TYPE: XR chest 2V DATE OF EXAM: 04/30/2022 COMPARISON: 06/15/2020 HISTORY: 41-year-old male chest pain TECHNIQUE: PA and lateral views FINDINGS: The cardiomediastinal silhouette, aorta, and pulmonary vasculature are within normal limits. Lungs an d pleural spaces are clear. IMPRESSION: No acute cardiopulmonary process.
[2022-04-30 11:00] LABS: Partial Thromboplastin Time 23.4 sec (22.0-30.0); Prothrombin Time 11.2 sec (9.0-12.0)
[2022-04-30] MEDS ORDERED: NITROGLYCERIN SL TABS 0.4 MG TAB SUBLINGUAL PRN (12:27)
--- NOTE | 2022-04-30 12:30 | ED ---
Chest Pain HPI - General Chief Complaint: Chest Pain Stated Complaint: Chest pain Time Seen by Provider: 04/30/22 10:04 Source: patient, RN notes reviewed Mode of arrival: wheelchair Limitations: no limitations - History of Present Illness Initial Comments: 41-year-old male present emergency Department chief complaint chest pain. Patient states that substernal chest pain states that some pain and left lower rib, left arm. Patient states that has been intermittent but concerning her last 3 days. Patient states he was admitted a few months ago for bradycardia, elevated troponin and elevated lipase. Patient's case he is scheduled for stress test in May. He has had a stress test over 2 years ago. Patient states he cannot figure out why his troponin was elevated at that time. Patient admits he has extensive workup. - Related Data Home Medications Medication Instructions Recorded Confirmed Aspirin EC [Ecotrin Low Dose] 81 mg PO HS 04/30/22 04/30/22 Cyanocobalamin (Vitamin B-12) 1,000 mcg PO HS 04/30/22 04/30/22 [Vitamin B-12] Melatonin 10 mg PO HS 04/30/22 04/30/22 Allergies Allergy/AdvReac Type Severity Reaction Status Date / Time bee venom protein (honey bee) Allergy Anaphylaxis Verified 04/30/22 10:50 dextromethorphan Allergy Anaphylaxis Verified 04/30/22 10:50 diphenhydramine HCl Allergy Anaphylaxis Verified 04/30/22 10:50 [From Benadryl] prednisone AdvReac Intermediate Unknown Verified 04/30/22 10:50 Review of Systems ROS Statement: Those systems with pertinent positive or pertinent negative responses have been documented in the HPI. ROS Other: All systems not noted in ROS Statement are negative. Past Medical History Past Medical History: CVA/TIA Additional Past Medical History / Comment(s): back pain, TIA, high heart rate in 10/2019 had negative stress, buldging discs History of Any Multi-Drug Resistant Organisms: None Reported Past Surgical History: Orthopedic Surgery Additional Past Surgical History / Comment(s): knee surgery Past Anesthesia/Blood Transfusion Reactions: No Reported Reaction Past Psychological History: No Psychological Hx Reported Smoking Status: Former smoker Past Alcohol Use History: Rare Past Drug Use History: None Reported - Past Family History Father Family Medical History: Myocardial Infarction ([place]) Mother Family Medical History: No Reported History Brother(s) Additional Family Medical History / Comment(s): superficial blood clots Daughter(s) Family Medical History: No Reported History Son(s) Additional Family Medical History / Comment(s): JMML- rare leukemia of the blood General Exam Limitations: no limitations General appearance: alert, in no apparent distress Head exam: Present: atraumatic, normocephalic, normal inspection Eye exam: Present: normal appearance, PERRL, EOMI. Absent: scleral icterus, conjunctival injection, periorbital swelling ENT exam: Present: normal exam, normal oropharynx, mucous membranes moist Neck exam: Present: normal inspection, full ROM. Absent: tenderness, mening ismus, lymphadenopathy Respiratory exam: Present: normal lung sounds bilaterally. Absent: respiratory distress, wheezes, rales, rhonchi, stridor Cardiovascular Exam: Present: regular rate, normal rhythm, normal heart sounds. Absent: systolic murmur, diastolic murmur, rubs, gallop, clicks GI/Abdominal exam: Present: soft, normal bowel sounds. Absent: distended, tenderness, guarding, rebound, rigid Neurological exam: Present: alert Skin exam: Present: warm, dry, intact, normal color. Absent: rash Course Vital Signs 04/30/22 04/30/22 04/30/22 09:56 10:05 10:26 Temperature 98 F Pulse Rate 74 64 Pulse Rate [ 63 Apartment Coordinator ] Respiratory 18 18 Rate Blood Pressure 158/89 126/81 O2 Sat by Pulse 99 99 Oximetry 04/30/22 12:24 Temperature Pulse Rate 61 Pulse Rate [ Apartment Coordinator ] Respiratory 16 Rate Blood Pressure 127/83 O2 Sat by Pulse 100 Oximetry Chest Pain MDM - MDM I did attempt to contact cardiology they felt that the patient needs to be admitted for chest pain to admit the patient observation. Patient does see Dr. Brown. Patient we have repeat troponin, evaluation for stress test. Disposition Clinical Impression: Chest pain Disposition: ADMITTED IP TO THIS HOSP Referrals: Sophia Ornelas MD [Primary Care Provider] - 1-2 days Time of Disposition: 12:30
--- NOTE | 2022-04-30 17:19 | P.HPIM ---
History of Present Illness H&P Date: 04/30/22 This is a pleasant 41 year old male with medical history significant for TIA, back pain, elevated heart rate in 2019 and had undergone stress test which was negative, bulging discs, former smoker. He does have strong family history of heart disease with his father having an CT at the age of 50. Patient presents with history of intermittent substernal chest discomfort with spontaneous resolution, he did have associated diaphoresis during one of the episodes which happened while sitting in the car. This has been ongoing for the last 3 days. Yesterday he had radiation into the left arm. He also reports he has been having chest pressure left chest wall on and off which usually presents in the aft ernoon and is gone when waking in the morning. Patient was evaluated a few months ago in the hospital for bradycardia, elevated troponin and elevated lipase which he states was mostly attributed to 3 days of high dose steroids he had received at his neurologists office. Patient has lost about 40 lbs since his TIA last year. He reports no fever, no chills, no cough. No recent medication or diet changes. Chest x-ray reviewed and is negative for acute cardiopulmonary process. EKG showing sinus rhythm heart rate 63, QT interval 396. Troponin levels have been negative x3, proBNP 36. Blood cell count within normal limits, he does have elevated glucose at 132, no history of diabetes. Patient is afe brile, heart rate 64, blood pressure 123/71, 96% room air. Patient is admitted for observation and consultation placed to cardiology. REVIEW OF SYSTEMS: CONSTITUTIONAL: No fever, no malaise, no fatigue. HEENT: No recent visual problems or hearing problems. Denied any sore throat. CARDIOVASCULAR: No chest pain, orthopnea, PND, no palpitations, no syncope. PULMONARY: No shortness of breath, no cough, no hemoptysis. GASTROINTESTINAL: No diarrhea, no nausea, no vomiting, no abdominal pain. NEUROLOGICAL: No headaches, no weakness, no numbness. HEMATOLOGICAL: Denies any bleeding or petechiae. GENITOURINARY: Denies any burning micturition, frequency, or urgency. MUSCULOSKELETAL/RHEUMATOLOGICAL: Denies any joint pain, swelling, or any muscle pain. ENDOCRINE: Denies any polyuria or polydipsia. The rest of the 14-point review of systems is negative. PHYSICAL EXAMINATION: GENERAL: The patient is alert and oriented x3, not in any acute distress. Well developed, well nourished. HEENT: Pupils are round and equally reacting to light. EOMI. No scleral icterus. No conjunctival pallor. Normocephalic, atraumatic. No pharyngeal erythema. No thyromegaly. CARDIOVASCULAR: S1 and S2 present. No murmurs, rubs, or gallops. PULMONARY: Chest is clear to auscultation, no wheezing or crackles. ABDOMEN: Soft, nontender, nondistended, normoactive bowel sounds. No palpable organomegaly. MUSCULOSKELETAL: No joint swelling or deformity. EXTREMITIES: No cyanosis, clubbing, or pedal edema. NEUROLOGICAL: Gross neurological examination did not reveal any focal deficits. SKIN: No rashes. Assessment and plan Assessment Chest pain rule out acute coronary syndrome Recent cardiac workup last month Hyperglycemia History TIA History bulging discs Chronic back pain Former smoker DVT Prophylaxis early ambulation Full Code Plan Cardiology consultation Continue telemetry monitoring Lipid panel in AM Check A1C Continue home medications Patient admitted to observation with anticipated length of stay less than 2 nights The impression and plan of care has been dictated by Roseline Lama Nurse Practitioner as directed. Dr. Amaury MD I have performed a history and physical examination and medical decision making of this patient, discussed the same with the dictator, and agree with the dictators assessment and plan as written, documented as a scribe. Based on total visit time, I have performed more than 50% of this visit. Past Medical History Past Medical History: CVA/TIA Additional Past Medical History / Comment(s): back pain, TIA, high heart rate in 10/2019 had negative stress, buldging discs History of Any Multi-Drug Resistant Organisms: None Reported Past Surgical History: Orthopedic Surgery Additional Past Surgical History / Comment(s): knee surgery Past Anesthesia/Blood Transfusion Reactions: No Reported Reaction Past Psychological History: No Psychological Hx Reported Smoking Status: Former smoker Past Alcohol Use History: Rare Past Drug Use History: None Reported - Past Family History Father Family Medical History: Myocardial Infarction ([place]) Mother Family Medical History: No Reported History Brother(s) Additional Family Medical History / Comment(s): superficial blood clots Daughter(s) Family Medical History: No Reported History Son(s) Additional Family Medical History / Comment(s): JMML- rare leukemia of the blood Medications and Allergies Home Medications Medication Instructions Recorded Confirmed Type Aspirin EC [Ecotrin Low Dose] 81 mg PO HS 04/30/22 04/30/22 History Cyanocobalamin (Vitamin B-12) 1,000 mcg PO HS 04/30/22 04/30/22 History [Vitamin B-12] Melatonin 10 mg PO HS 04/30/22 04/30/22 History Allergies Allergy/AdvReac Type Severity Reaction Status Date / Time bee venom protein (honey bee) Allergy Anaphylaxis Verified 04/30/22 10:50 dextromethorphan Allergy Anaphylaxis Verified 04/30/22 10:50 diphenhydramine HCl Allergy Anaphylaxis Verified 04/30/22 10:50 [From Benadryl] prednisone AdvReac Intermediate Unknown Verified 04/30/22 10:50 Physical Exam Vitals: Vital Signs Temp Pulse Pulse Resp BP Pulse Ox 04/30/22 14:54 64 18 123/71 96 04/30/22 13:16 58 L 18 114/77 98 04/30/22 12:24 61 16 127/83 100 04/30/22 10:26 64 18 126/81 99 04/30/22 10:05 63 04/30/22 09:56 98 F 74 18 158/89 99 Intake and Output 04/30/22 04/30/22 04/30/22 06:59 14:59 22:59 Other: Weight 88.451 kg Results CBC & Chem 7: 04/30/22 10:26 04/30/22 10:26 Labs: Abnormal Lab Results - Last 24 Hours (Table) 04/30/22 Range/Units 10:26 Glucose 132 H (74-99) mg/dL Assessment and Plan Time with Patient: Less than 30
--- NOTE | 2022-04-30 18:03 | P.CRDCN ---
History of Present Illness History of present illness: 41-year-old gentleman with no significant past medical history presented to Hospital complaining of chest pain. He describes sharp atypical chest pain over the last 3 days. Its mild intensity pericardial unrelated to exertion and not worse with diaphoresis. There is some radiation to back and left arm. He came in EKG doesn't reveal ischemic changes cardiac enzymes have been negative and is admitted to hospital. At the time of my evaluation he appears comfortable at rest and is free of symptoms. I will schedule him for a stress test tomorrow morning this is negative he can be discharged home if this is abnormal will investigate him further. Review of systems: 14 out of 14 review of systems has been performed. Pertinent set as documented. General: The patient is awake and alert, in no distress, and does not appear acutely ill. Skin: Skin is warm and dry and no rashes or lesions are noted. Eye: Pupils are equal, round and reactive to light, extra-ocular movements are intact; there is normal conjunctiva bilaterally. Ears, nose, mouth and throat: There are moist mucous membranes and no oral lesions. Neck: The neck is supple, there is no tenderness or JVD. Cardiovascular: There is a regular rate and rhythm. No murmur, rub or gallop is appreciated. Respiratory: Lungs are clear to auscultation, respirations are non-labored, breath sounds are equal. Gastrointestinal: Soft, non-distended, non-tender abdomen without masses or organomegaly noted. There is no rebound or guarding present. Bowel sounds are unremarkable. Back: There is no tenderness to palpation in the midline. There is no obvious deformity. Musculoskeletal: Normal ROM, no tenderness, There is no pedal edema. There is no calf tenderness or swelling. Extremities: No edema. Vascular: Femoral pulse is normal. Posterior tibial pulses are normal .Dorsalis pedis is palpable. Neurological: CN II-XII intact. There are no obvious motor or sensory deficits. Speech is normal. Psychiatric: Cooperative, appropriate mood & affect, normal judgment. Assessment and plan: Precordial chest pain Sharp atypical I will perform stress echo tomorrow morning if this is negative will discharge him home Past Medical History Past Medical History: CVA/TIA Additional Past Medical History / Comment(s): back pain, TIA, high heart rate in 10/2019 had negative stress, buldging discs History of Any Multi-Drug Resistant Organisms: None Reported Past Surgical History: Orthopedic Surgery Additional Past Surgical History / Comment(s): knee surgery Past Anesthesia/Blood Transfusion Reactions: No Reported Reaction Past Psychological History: No Psychological Hx Reported Smoking Status: Former smoker Past Alcohol Use History: Rare Past Drug Use History: None Reported - Past Family History Father Family Medical History: Myocardial Infarction ([place]) Mother Family Medical History: No Reported History Brother(s) Additional Family Medical History / Comment(s): superficial blood clots Daughter(s) Family Medical History: No Reported History Son(s) Additional Family Medical History / Comment(s): JMML- rare leukemia of the blood Medications and Allergies Home Medications Medication Instructions Recorded Confirmed Type Aspirin EC [Ecotrin Low Dose] 81 mg PO HS 04/30/22 04/30/22 History Cyanocobalamin (Vitamin B-12) 1,000 mcg PO HS 04/30/22 04/30/22 History [Vitamin B-12] Melatonin 10 mg PO HS 04/30/22 04/30/22 History Allergies Allergy/AdvReac Type Severity Reaction Status Date / Time bee venom protein (honey bee) Allergy Anaphylaxis Verified 04/30/22 10:50 dextromethorphan Allergy Anaphylaxis Verified 04/30/22 10:50 diphenhydramine HCl Allergy Anaphylaxis Verified 04/30/22 10:50 [From Benadryl] prednisone AdvReac Intermediate Unknown Verified 04/30/22 10:50 Physical Exam Vitals: Vital Signs Temp Pulse Pulse Resp BP BP Pulse Ox 04/30/22 17:01 97.8 F 58 L 18 133/75 98 04/30/22 14:54 64 18 123/71 96 04/30/22 13:16 58 L 18 114/77 98 04/30/22 12:24 61 16 127/83 100 04/30/22 10:26 64 18 126/81 99 04/30/22 10:05 63 04/30/22 09:56 98 F 74 18 158/89 99 Intake and Output 04/30/22 04/30/22 04/30/22 06:59 14:59 22:59 Other: Weight 88.451 kg Results 04/30/22 10:26 04/30/22 10:26 Cardiac Enzymes 08/09/22 08/09/22 08/09/22 Range/Units 10:26 10:26 13:19 AST 32 (17-59) U/L Troponin I <0.012 <0.012 (0.000-0.034) ng/mL 04/30/22 Range/Units 16:04 AST (17-59) U/L Troponin I <0.012 (0.000-0.034) ng/mL Coagulation 04/30/22 Range/Units 10:26 PT 11.2 (9.0-12.0) sec APTT 23.4 (22.0-30.0) sec CBC 04/30/22 Range/Units 10:26 WBC 6.5 (3.8-10.6) k/uL RBC 5.37 (4.30-5.90) m/uL Hgb 15.4 (13.0-17.5) gm/dL Hct 47.5 (39.0-53.0) % Plt Count 219 (150-450) k/uL Comprehensive Metabolic Panel 04/30/22 Range/Units 10:26 Sodium 139 (137-145) mmol/L Potassium 4.2 (3.5-5.1) mmol/L Chloride 100 (98-107) mmol/L Carbon Dioxide 28 (22-30) mmol/L BUN 12 (9-20) mg/dL Creatinine 0.93 (0.66-1.25) mg/dL Glucose 132 H (74-99) mg/dL Calcium 9.5 (8.4-10.2) mg/dL AST 32 (17-59) U/L ALT 27 (4-49) U/L Alkaline Phosphatase 41 (38-126) U/L Total Protein 7.5 (6.3-8.2) g/dL Albumin 4.9 (3.5-5.0) g/dL Current Medications Generic Name Dose Route Start Last Admin Trade Name Freq PRN Reason Stop Dose Admin Aspirin 325 mg 05/01/22 09:00 Aspirin 325 Mg Tab PO DAILY DAMIAN Cyanocobalamin 1,000 mcg 04/30/22 21:00 Cyanocobalamin 500 Mcg Tab PO HS DAMIAN Melatonin 10 mg 04/30/22 21:00 Melatonin 5 Mg Tablet PO HS DAMIAN Nitroglycerin 0.4 mg 04/30/22 12:27 Nitroglycerin Sl Tabs 0.4 Mg Tab SUBLINGUAL Q5M PRN Chest Pain Intake and Output 04/30/22 04/30/22 04/30/22 06:59 14:59 22:59 Other: Weight 88.451 kg Patient Weight 05/01/22 06:59 Weight 88.451 kg 04/30/22 10:26 04/30/22 10:26
[2022-04-30] MEDS ORDERED: MELATONIN 5 MG TABLET PO SCH (21:00)
[2022-04-30] MEDS ORDERED: CYANOCOBALAMIN 500 MCG TAB PO SCH (21:00)
[2022-05-01 03:49] VITALS: RESP 18
[2022-05-01 07:37] VITALS: BP 113/71; PULSE 58; TEMP 97.7
[2022-05-01] MEDS ORDERED: ASPIRIN 325 MG TAB PO SCH (09:00)
[2022-05-01 09:31] LABS: Chol/HDL Ratio 3.79 Ratio; LDL Cholesterol,Calculated 106.3 mg/dL (0.0-131.0); VLDL Calculation 19.56 mg/dL (5.00-40.00)
--- NOTE | 2022-05-01 10:21 | CA ---
Stress Echo Report Mango Nunez Age: 41 Gender: M : 1980 Exam Date: 05/01/2022 09:16 Exam Location: [facility] Ht (in): 73 Wt (lb): 195 Ordering Physician: Saul Espinoza MD ([id number]) Referring Physician: Olga FRANKLIN Mine Manager: Dai Govea RDCS Technologist Procedure CPT: Indication: CP ICD-9 Codes: Rhythm: Patient History: Cardiac Medications: Medications in past 24 hours: Contrast: Stress Results Protocol: Kenji Total dose(mL): Exercise Duration (min:sec): [address] Depression (mm): Angina Score: Jurado Score: METS: 12.3 Resting HR: 78 Resting BP: 105 / 52 Peak HR: 170 Peak BP: 213 / 63 Max Predicted HR: 177 96 % Max Predicted HR Target HR: 150 Double Product: [id number] Stress Summary: BP Response: Reason for Termination: Cardiac Symptoms: ECG Analysis Resting ECG: Normal sinus rhythm normal axis normal intervals Stress ECG: No exercise induced ST segment depression Arrhythmia: No cardiac arrhythmia Echo Analysis Resting Echo: Normal left ventricular size wall motion systolic function Peak Echo Analysis: Normal hyperdynamic response of all segments of myocardium MEASUREMENTS (Male/Female) Normal Values CONCLUSIONS Excellent exercise tolerance Negative stress test by EKG criteria Negative stress echo Dr. Saul Espinoza MD (Electronically Signed) Final Date: 01 May 2022 10:19
--- NOTE | 2022-05-01 11:27 | P.PN ---
Subjective Progress Note Date: 05/01/22 41-year-old gentleman with no significant past medical history presented to Hospital complaining of chest pain. He describes sharp atypical chest pain over the last 3 days. Its mild intensity pericardial unrelated to exertion and not worse with diaphoresis. There is some radiation to back and left arm. He came in EKG doesn't reveal ischemic changes cardiac enzymes have been negative and is admitted to hospital. Patient has remained sinus rhythm on the monitor. Cholesterol labs reviewed cholesterol 171 triglycerides 97 LDL 106 HDL 45. Patient examined post stress test. Has no complaints of chest pain or increased shortness of breath. Stress test has been reviewed and is negative. Patient is clear for discharge Objective - Vital Signs Vital signs: Vital Signs Temp 97.7 F 05/01/22 07:00 Pulse 58 L 05/01/22 07:00 Resp 18 05/01/22 07:00 BP 113/71 05/01/22 07:00 Pulse Ox 98 05/01/22 07:00 FiO2 Intake & Output 04/30/22 05/01/22 05/01/22 18:59 06:59 18:59 Weight 88.451 kg Other: Voiding Method Toilet # Voids 2 1 - Exam PHYSICAL EXAM: VITAL SIGNS: Reviewed. GENERAL: Well-developed in no acute distress. HEENT: Head is normocephalic. Pupils are equal, round. Sclerae anicteric. Mucous membranes of the mouth are moist. NECK: Supple. No JVD or thyromegaly RESPIRATORY: Respirations even and unlabored. Lungs diminished to auscultation bilaterally. CARDIO: Regular rate and rhythm. S1 and S2 heard. No murmur or gallops. EXTREMITIES: Normal range of motion. No clubbing or cyanosis. Peripheral pulses intact. Negative for bilateral lower extremity edema NEURO: Orientated to person, time, mood is appropriate - Labs CBC & Chem 7: 04/30/22 10:26 04/30/22 10:26 Labs: Abnormal Lab Results - Last 24 Hours (Table) 04/30/22 Range/Units 10: Glucose 132 H (74-99) mg/dL Assessment and Plan Assessment: Pericardial chest pain Plan: Stress echo completed and reviewed. Patient is cleared for discharge will follow in the outpatient setting The above impression and plan of care have been discussed and directed by the signing physician. Karlene Gutierrez, nurse practitioner, acting as scribe for signing physician.
--- NOTE | 2022-05-01 16:54 | P.DS ---
Providers Date of admission: 04/30/22 12:38 Attending physician: Stanford Rebolledo Consults: 04/30/22 12:27 Consult Physician Urgent Consulting Provider: Saul Espinoza Consult Reason/Comments: chest pain Do you want consulting provider notified?: Yes Primary care physician: Sophia Ornelas [facility] Course: Diagnosis Chest pain rule out acute coronary syndrome Recent cardiac workup last month Hyperglycemia History TIA History bulging discs Chronic back pain Former smoker Full Code Discharge Disposition Patient stable for discharge. Patient underwent stress test today which was negative. Cleared by cardiology to follow up in the office. Patient will be discharge home. Hospital Course This is a 41-year-old male with history significant for TIA, chronic back pain, recent cardiac workup last month presents to the hospital with 3 day symptoms of chest pain. Troponin level negative 3, proBNP 36. He did hyperglycemia which A1c was found to be 5.5. Lipid panel completed showing triglycerides 97.8, cholesterol 171, LDL 106.3, HDL 45.10. Lipase is 44. Patient was evaluated by cardiology and was taken for an echo stress test. Stress test was negative. Patient has excellent exercise tolerance. Patient follows with Dr Espinoza outpatient. States he had an event monitor placed outpatient for a month and states no arryhthmias were found. Patient does report complaints of feeling more gassy than usual and also reports developing a lactose intolerance lately. He was recommending to start gas drops, simethicone was prescribed. He is also wondering about if he has GERD. Discussed protonix and symptoms of GERD and he will follow up with primary care on discharge to further discuss. 05/01/2022 Patient evaluated today sitting up in the chair. No acute events overnight. Currently asymptomatic, no chest pain or shortness of breath. No abdominal pain, no nausea vomiting or diarrhea. He is tolerating diet. He has completed an echo stress test was negative and his been cleared by cardiology for discharge. Afebrile, heart rate 60, blood pressure 116/66, 99% on room air. Lungs are clear, S1-S2 auscultated, abdomen is soft and nontender, focal neurological symptoms negative. Patient will resume home medications including vitamin B12, 81 mg aspirin at bedtime, melatonin. Follow up with primary care and cardiology post discharge. Please see medication reconciliation for a list of current medication. Thank you for allowing us to participate in the care of this patient. Total time taken in discharge planning greater than 35 minutes. The impression and plan of care has been dictated by Roseline Lama, Nurse Practitioner as directed. Dr. Juan David MD I have performed a history and physical examination and medical decision making of this patient, discussed the same with the dictator, and agree with the dictators assessment and plan as written, documented as a scribe. Based on total visit time, I have performed more than 50% of this visit. Patient Condition at Discharge: Good Plan - Discharge Summary Discharge Rx Participant: No New Discharge Prescriptions: New Simethicone [Mylanta Gas Minis] 125 mg PO TID #30 tab Continue Cyanocobalamin (Vitamin B-12) [Vitamin B-12] 1,000 mcg PO HS Melatonin 10 mg PO HS Aspirin EC [Ecotrin Low Dose] 81 mg PO HS Discharge Medication List Aspirin EC [Ecotrin Low Dose] 81 mg PO HS 04/30/22 [History] Cyanocobalamin (Vitamin B-12) [Vitamin B-12] 1,000 mcg PO HS 04/30/22 [History] Melatonin 10 mg PO HS 04/30/22 [History] Simethicone [Mylanta Gas Minis] 125 mg PO TID #30 tab 05/01/22 [Rx] Follow up Appointment(s)/Referral(s): Sophia Ornelas MD [Primary Care Provider] - 1-2 days Saul Espinoza MD [Family Provider] - 1 Week Eugenia Espinoza MD [STAFF PHYSICIAN] - As Needed (Gastroenterology specialist ) Activity/Diet/Wound Care/Special Instructions: Continue current home medications. Follow up with primary care in 1 to 2 days Recommend medication for gas/bloating May benefit from trial medication such as protonix or another proton pump inhibitor. Discharge Disposition: HOME SELF-CARE
== END 2022-05-01 14:13 | disposition home or self-care (01) ==
LOC: EC 09:50 → 6NMEDSUR 12:38
PROVIDERS: ADMIT Internal Medicine; ATTEND Internal Medicine
DX: R07.89 Other chest pain (principal); R73.9 Hyperglycemia, unspecified; M54.9 Dorsalgia, unspecified; G89.29 Other chronic pain; Z79.82 Long term (current) use of aspirin; Z86.73 Personal history of transient ischemic attack (TIA), and cerebral infarction without residual deficits; Z87.891 Personal history of nicotine dependence; Z82.49 Family history of ischemic heart disease and other diseases of the circulatory system; Z80.6 Family history of leukemia; Z88.8 Allergy status to other drugs, medicaments and biological substances; Z79.899 Other long term (current) drug therapy
CPT/HCPCS: 99285; 36415; 93005; 93351; 85379; 83880; 80061; 80053; 83690; 83735; 84484; 85025; 85610; 85730; 83036; 71046; G0378 ×2

== ENCOUNTER → 2022-05-08 | Outpatient (CLI) | payer BC ==
--- NOTE | 2022-05-08 10:46 | CT ---
EXAMINATION TYPE: CT heart w calcium score DATE OF EXAM: 05/08/2022 COMPARISON: None HISTORY: Screening for cardiovascular disorder. 213.9 CT DLP: 69.5 mGycm Automated exposure control for dose reduction was used. CT CALCIUM SCORING Coronary calcium is a marker for plaque (fatty deposits) in a blood vessel or atherosclerosis (harden ing of the arteries). The presence and amount of calcium detected in a coronary artery by the CT sca n, indicates the presence and amount of atherosclerotic plaque. These calcium deposits appear years before the development of heart disease symptoms such as chest pain and shortness of breath. A calcium score is computed for each of the coronary arteries based upon the volume and density of th e calcium deposits. This can be referred to as your calcified plaque burden. It does not correspond directly to the percentage of narrowing in the artery but does correlate with the severity of the un derlying coronary atherosclerosis. PROCEDURE TECHNIQUE - Prospective Gating was used. Slice thickness: 3mm. Density threshold (HU): 130, Pixel threshold: 3, Algorithm: discrete. RESULTS Region: LM Calcium Score ([place]): 0 Volume (mm3): 0 Mass (g): 0 Region: RCA Calcium Score ([place]): 0 Volume (mm3): 0 Mass (g): 0 Region: LAD Calcium Score ([place]): 0 Volume (mm3): 0 Mass (g): 0 Region: CX Calcium Score ([place]): 0 Volume (mm3): 0 Mass (g): 0 Region: PDA Calcium Score ([place]): 0 Volume (mm3): 0 Mass (g): 0 Total: Calcium Score ([place]): 0 Volume (mm3): 0 Mass (g): 0 TOTAL CALCIUM SCORE: 0 Hypertrophic changes spine. Visualized lung hassan clear. Mild atherosclerotic change aorta. IMPRESSION: Calcium Score: 0 Implication: No identifiable plaque. Risk of Coronary Artery Disease: Very low, generally less than 5%. CALCIUM SCORE IMPLICATION RISK OF C ORONARY ARTERY DISEASE 0 No identifiable plaque Very low, generally less than 5% 1-10 Minimal identifiable plaque Very unlikely, less than 10% 11-100 Definite, at least mild atherosclerotic plaque Mild or m inimal coronary narrowings likely 101-400 Definite, at least moderate atherosclerotic plaque Mild coronary ar nenita disease highly likely, significant narrowing possible 401 or Higher Extensive atherosclerotic plaque High lik elihood of at least one significant coronary narrowing
== END | disposition home or self-care (01) ==
LOC: RADCTMAIN 09:35
PROVIDERS: ATTEND Internal Medicine Cardiovascular Disease
DX: Z13.9 Encounter for screening, unspecified (principal)
CPT/HCPCS: 75571

== ENCOUNTER → 2022-05-21 | Outpatient (CLI) | payer BC ==
--- NOTE | 2022-05-21 09:31 | NM ---
Nuclear medicine hepatobiliary scan. HISTORY: Pain. DOSAGE: The patient received 8 ounces of Ensure Plus and 5.4 mCi of Technetium 99m Choletec. FINDINGS: There is normal hepatic extraction. The gallbladder is seen by 10 minutes. There is bilia ry to bowel clearance by 40 minutes. Ejection fraction is 63%. IMPRESSION: 1. Normal hepatobiliary exam
== END | disposition home or self-care (01) ==
LOC: RADNMMAIN 06:45
PROVIDERS: ATTEND Family Medicine
DX: R10.13 Epigastric pain (principal)
CPT/HCPCS: 78226; A9537

== ENCOUNTER 2022-10-25 16:29 | Emergency (ER) | payer BC ==
[2022-10-25 16:33] VITALS: RESP 18; TEMP 98.1
--- NOTE | 2022-10-25 17:17 | XR ---
EXAMINATION TYPE: XR chest 2V DATE OF EXAM: 10/25/2022 COMPARISON: 04/30/2022 HISTORY: Chest pain TECHNIQUE: 2 view FINDINGS: Heart and mediastinum are normal. Lungs are clear. Diaphragm is normal. Bony thorax is inta ct IMPRESSION: Normal chest. No change.
[2022-10-25] MEDS ORDERED: SODIUM CHLORIDE 0.9% 1,000 ML IV ONE (17:36)
[2022-10-25 17:37] LABS: ALT 30 U/L (4-49); AST 29 U/L (17-59); African American GFR (CKD) >90 (>60 ml/min/1.73 sqM); Albumin 4.8 g/dL (3.5-5.0); Alkaline Phosphatase 45 U/L (38-126); Amylase 77 U/L (30-110); Anion Gap 7 mmol/L; Blood Urea Nitrogen 17 mg/dL (9-20); Calcium 9.2 mg/dL (8.4-10.2); Carbon Dioxide 28 mmol/L (22-30); Chloride 105 mmol/L (98-107); Glucose 99 mg/dL (74-99); Lipase 71 U/L (23-300); Magnesium 2.1 mg/dL (1.6-2.3); Non-African American GFR(CKD) >90 (>60 ml/min/1.73 sqM); Potassium 4.1 mmol/L (3.5-5.1); Sodium 140 mmol/L (137-145); Total Bilirubin 0.5 mg/dL (0.2-1.3); Total Protein 7.2 g/dL (6.3-8.2)
[2022-10-25 17:38] LABS: Partial Thromboplastin Time 24.1 sec (22.0-30.0); Prothrombin Time 10.6 sec (9.0-12.0)
[2022-10-25 17:52] LABS: Basophils # (A) 0.1 k/uL (0-0.2); Basophils % (A) 1 %; Eosinophils # (A) 0.1 k/uL (0-0.7); Eosinophils % (A) 1 %; HCT 42.5 % (39.0-53.0); HGB 14.8 gm/dL (13.0-17.5); Lymphocytes # (A) 1.3 k/uL (1.0-4.8); Lymphocytes % (A) 21 %; MCH 30.2 pg (25.0-35.0); MCHC 34.8 g/dL (31.0-37.0); MCV 86.7 fL (80.0-100.0); Mean Platelet Volume 8.5; Monocytes # (A) 0.3 k/uL (0-1.0); Monocytes % (A) 5 %; Neutrophils # (A) 4.1 k/uL (1.3-7.7); Neutrophils % (A) 70 %; Platelet Count 168 k/uL (150-450); RBC 4.91 m/uL (4.30-5.90); WBC 5.9 k/uL (3.8-10.6)
--- NOTE | 2022-10-25 18:06 | ED ---
General Adult HPI - General Chief complaint: Chest Pain Stated complaint: chest pain Time Seen by Provider: 10/25/22 16:35 Source: patient, RN notes reviewed, old records reviewed Mode of arrival: ambulatory Limitations: no limitations - History of Present Illness Initial comments: This is a 42-year-old male presents emergency Department complaining of left- sided chest pain. Patient states his been ongoing for about 2 weeks it usually comes and goes about 5 seconds. Patient states he only has a couple times a day so doesn't really worry them however today he woke up he's been having it multiple times a day. Patient states it never lasts for more than 5 seconds it is a pressure sensation. Patient states it doesn't seem to get worse with movem ent. Patient states she's avid runner and swimmer. Patient denies any recent fever chills or cough. Patient denies any rashes or lesions in that area. Patient denies any shortness of breath or difficulty breathing. Patient denies any abdominal pain patient denies any nausea vomiting diarrhea per patient denies any swelling to legs or calf tenderness. Patient denies any history of smoking diabetes hypertension high cholesterol. Patient states his dad did have heart attack but he had quite a few comorbidities. - Related Data Home Medications Medication Instructions Recorded Confirmed Melatonin 10 - 15 mg PO HS 04/30/22 10/25/22 Allergies Allergy/AdvReac Type Severity Reaction Status Date / Time bee venom protein (honey bee) Allergy Anaphylaxis Verified 10/25/22 18:32 dextromethorphan Allergy Anaphylaxis Verified 10/25/22 18:32 diphenhydramine HCl Allergy Anaphylaxis Verified 10/25/22 18:32 [From Benadryl] prednisone AdvReac Intermediate Unknown Verified 10/25/22 18:32 Review of Systems ROS Statement: Those systems with pertinent positive or pertinent negative responses have been documented in the HPI. ROS Other: All systems not noted in ROS Statement are negative. Past Medical History Past Medical History: CVA/TIA Additional Past Medical History / Comment(s): back pain, TIA, high heart rate in 10/2019 had negative stress, bulging discs, February 2020 bradycardia History of Any Multi-Drug Resistant Organisms: None Reported Past Surgical History: Orthopedic Surgery Additional Past Surgical History / Comment(s): knee surgery Past Anesthesia/Blood Transfusion Reactions: No Reported Reaction Past Psychological History: No Psychological Hx Reported Smoking Status: Former smoker Past Alcohol Use History: Rare Past Drug Use History: None Reported - Past Family History Father Family Medical History: Myocardial Infarction (MS) Mother Family Medical History: No Reported History Brother(s) Additional Family Medical History / Comment(s): superficial blood clots Daughter(s) Family Medical History: No Reported History Son(s) Additional Family Medical History / Comment(s): JMML- rare leukemia of the blood General Exam - General Exam Comments Initial Comments: GENERAL: Patient is well-developed and well-nourished. Patient is nontoxic and well- hydrated and is in no acute distress. ENT: Neck is soft and supple. No significant lymphadenopathy is noted. Oropharynx is clear. Moist mucous membranes. Neck has full range of motion without eliciting any pain. EYES: The sclera were anicteric and conjunctiva were pink and moist. Extraocular movements were intact and pupils were equal round and reactive to light. Eyelids were unremarkable. PULMONARY: Unlabored respirations. Good breath sounds bilaterally. No audible rales rhonchi or wheezing was noted. CARDIOVASCULAR: There is a regular rate and rhythm without any murmurs gallops or rubs. ABDOMEN: Soft and nontender with normal bowel sounds. SKIN: Skin is clear with no lesions or rashes and otherwise unremarkable. NEUROLOGIC: Patient is alert and oriented x3. Cranial nerves II through XII are grossly intact. Motor and sensory are also intact. Normal speech, volume and content. Symmetrical smile. MUSCULOSKELETAL: Normal extremities with adequate strength and full range of motion. No lower extremity swelling or edema. No calf tenderness. LYMPHATICS: No significant lymphadenopathy is noted PSYCHIATRIC: Patient seems mildly anxious Limitations: no limitations Course Vital Signs 10/25/22 10/25/22 16:31 18:05 Temperature 98.1 F Pulse Rate 78 98 Respiratory 18 18 Rate Blood Pressure 159/94 137/86 O2 Sat by Pulse 99 97 Oximetry Medical Decision Making - Medical Decision Making EKG shows sinus rhythm at 64 bpm LA interval 169 QRS is 94 QT interval 394 QTC is 404. Patient's EKG shows no ST segment elevation or depression. Was pt. sent in by a medical professional or institution (, PA, STRATEGIC PLANNING DIRECTOR, urgent care, hospital, or [facility]...) When possible be specific @ -No Did you speak to anyone other than the patient for history (EMS, parent, family, police, friend...)? What history was obtained from this source @ -No Did you review nursing and triage notes (agree or disagree)? Why? @ -I reviewed and agree with nursing and triage notes Were old charts reviewed (outside hosp., previous admission, EMS record, old EKG, old radiological studies, urgent care reports/EKG's, [facility] records)? Report findings @ -Reviewed patient's previous labs, previous radiological studies, in previous EKGs Differential Diagnosis (chest pain, altered mental status, abdominal pain women, abdominal pain men, vaginal bleeding, weakness, fever, dyspnea, syncope, headache, dizziness, GI bleed, back pain, seizure, CVA, palpatations, mental health, musculoskeletal)? @ -Differential Chest Pain: Stable Angina, Unstable Angina, STEMI, NSTEMI Aortic Dissection, Pneumothorax, Musculoskeletal, Esophageal Spasm GERD, Cholecystitis, Pancreatitis, Zoster, this is not meant to be an all-inclusive list. EKG interpreted by me (3pts min.). @ -As above X-rays interpreted by me (1pt min.). @ -I interpreted the chest x-ray showed no acute abnormality. CT interpreted by me (1pt min.). @ -None done U/S interpreted by me (1pt. min.). @ -None done What testing was considered but not performed or refused? (CT, X-rays, U/S, labs)? Why? @ -None What meds were considered but not given or refused? Why? @ -None Did you discuss the management of the patient with other professionals (professionals i.e. , PA, STRATEGIC PLANNING DIRECTOR, lab, RT, psych nurse, social work associate, reduction furnace operator helper, teacher, correctional program officer, correctional counselor/case manager)? Give summary @ -No Was smoking cessation discussed for >3mins.? @ -No Was critical care preformed (if so, how long)? @ -No Were there social determinants of health that impacted care today? How? (Homelessness, low income, unemployed, alcoholism, drug addiction, transportation, low edu. Level, literacy, decrease access to med. care, fci, rehab)? @ -No Was there de-escalation of care discussed even if they declined (Discuss DNR or withdrawal of care, Hospice)? DNR status @ -No What co-morbidities impacted this encounter? (DM, HTN, Smoking, COPD, CAD, Cancer, CVA, ARF, Chemo, Hep., AIDS, mental health diagnosis, sleep apnea, morbid obesity)? @ -None Was patient admitted / discharged? Hospital course, mention meds given and route, prescriptions, significant lab abnormalities, going to OR and other pertinent info. @ -I saw the patient emergency department labs were normal chest x-ray was normal patient's pain was only lasting 5 seconds at a time and it was a very subtle pain. Patient been worked up and had multiple stress tests in the past has had a Holter monitor is followed up with cardiology for the last couple of years. Patient is currently chest pain-free Undiagnosed new problem with uncertain prognosis? @ -No Drug Therapy requiring intensive monitoring for toxicity (Heparin, Nitro, Insulin, Cardizem)? @ -No Were any procedures done? @ -No Diagnosis/symptom? @ -Chest pain atypical Acute, or Chronic, or Acute on Chronic? @ -Acute Uncomplicated (without systemic symptoms) or Complicated (systemic symptoms)? @ -default Side effects of treatment? @ -No Exacerbation, Progression, or Severe Exacerbation? @ -No Poses a threat to life or bodily function? How? (Chest pain, USA, MS, pneumonia, PE, COPD, DKA, ARF, appy, cholecystitis, CVA, Diverticulitis, Homicidal, Suicidal, threat to staff... and all critical care pts) @ -No - Lab Data Result diagrams: 10/25/22 16:50 10/25/22 16:50 Lab Results 10/25/22 10/25/22 10/25/22 Range/Units 16:50 16:50 16:50 WBC 5.9 (3.8-10.6) k/uL RBC 4.91 (4.30-5.90) m/uL Hgb 14.8 (13.0-17.5) gm/dL Hct 42.5 (39.0-53.0) % MCV 86.7 (80.0-100.0) fL MCH 30.2 (25.0-35.0) pg MCHC 34.8 (31.0-37.0) g/dL RDW 14.0 (11.5-15.5) % Plt Count 168 (150-450) k/uL MPV 8.5 Neutrophils % 70 % Lymphocytes % 21 % Monocytes % 5 % Eosinophils % 1 % Basophils % 1 % Neutrophils # 4.1 (1.3-7.7) k/uL Lymphocytes # 1.3 (1.0-4.8) k/uL Monocytes # 0.3 (0-1.0) k/uL Eosinophils # 0.1 (0-0.7) k/uL Basophils # 0.1 (0-0.2) k/uL PT 10.6 (9.0-12.0) sec INR 1.0 (<1.2) APTT 24.1 (22.0-30.0) sec D-Dimer 0.18 (<0.60) mg/L FEU Sodium 140 (137-145) mmol/L Potassium 4.1 (3.5-5.1) mmol/L Chloride 105 (98-107) mmol/L Carbon Dioxide 28 (22-30) mmol/L Anion Gap 7 mmol/L BUN 17 (9-20) mg/dL Creatinine 0.91 (0.66-1.25) mg/dL Est GFR (CKD-EPI)AfAm >90 (>60 ml/min/1.73 sqM) Est GFR (CKD-EPI)NonAf >90 (>60 ml/min/1.73 sqM) Glucose 99 (74-99) mg/dL Calcium 9.2 (8.4-10.2) mg/dL Magnesium 2.1 (1.6-2.3) mg/dL Total Bilirubin 0.5 (0.2-1.3) mg/dL AST 29 (17-59) U/L ALT 30 (4-49) U/L Alkaline Phosphatase 45 (38-126) U/L Troponin I (0.000-0.034) ng/mL Total Protein 7.2 (6.3-8.2) g/dL Albumin 4.8 (3.5-5.0) g/dL Amylase 77 (30-110) U/L Lipase 71 (23-300) U/L 10/25/22 Range/Units 16:50 WBC (3.8-10.6) k/uL RBC (4.30-5.90) m/uL Hgb (13.0-17.5) gm/dL Hct (39.0-53.0) % MCV (80.0-100.0) fL MCH (25.0-35.0) pg MCHC (31.0-37.0) g/dL RDW (11.5-15.5) % Plt Count (150-450) k/uL MPV Neutrophils % % Lymphocytes % % Monocytes % % Eosinophils % % Basophils % % Neutrophils # (1.3-7.7) k/uL Lymphocytes # (1.0-4.8) k/uL Monocytes # (0-1.0) k/uL Eosinophils # (0-0.7) k/uL Basophils # (0-0.2) k/uL PT (9.0-12.0) sec INR (<1.2) APTT (22.0-30.0) sec D-Dimer (<0.60) mg/L FEU Sodium (137-145) mmol/L Potassium (3.5-5.1) mmol/L Chloride (98-107) mmol/L Carbon Dioxide (22-30) mmol/L Anion Gap mmol/L BUN (9-20) mg/dL Creatinine (0.66-1.25) mg/dL Est GFR (CKD-EPI)AfAm (>60 ml/min/1.73 sqM) Est GFR (CKD-EPI)NonAf (>60 ml/min/1.73 sqM) Glucose (74-99) mg/dL Calcium (8.4-10.2) mg/dL Magnesium (1.6-2.3) mg/dL Total Bilirubin (0.2-1.3) mg/dL AST (17-59) U/L ALT (4-49) U/L Alkaline Phosphatase (38-126) U/L Troponin I <0.012 (0.000-0.034) ng/mL Total Protein (6.3-8.2) g/dL Albumin (3.5-5.0) g/dL Amylase (30-110) U/L Lipase (23-300) U/L Disposition Clinical Impression: Chest pain Disposition: HOME SELF-CARE Instructions (If sedation given, give patient instructions): Chest Pain (ED) Is patient prescribed a controlled substance at d/c from ED?: No Referrals: Sophia Ornelas MD [Primary Care Provider] - 1-2 days Time of Disposition: 18:34
[2022-10-25 18:40] VITALS: BP 137/86; PULSE 98
== END 2022-10-25 20:03 | disposition home or self-care (01) ==
LOC: EC 16:29 → 6NMEDSUR 17:37 → UNDOADMOB 17:37 → 6NMEDSUR 18:29 → EC 18:41
DX: R07.89 Other chest pain (principal); Z87.891 Personal history of nicotine dependence; Z91.030 Bee allergy status; Z88.8 Allergy status to other drugs, medicaments and biological substances; Z86.73 Personal history of transient ischemic attack (TIA), and cerebral infarction without residual deficits
CPT/HCPCS: 36415; 71046; 80053; 82150; 83690; 83735; 84484; 85025; 85379; 85610; 85730; 93005; 96360; 99285

== ENCOUNTER → 2023-03-21 | Outpatient (CLI) | payer BC ==
--- NOTE | 2023-03-24 09:02 | CT ---
EXAMINATION TYPE: CT chest w con DATE OF EXAM: 03/21/2023 COMPARISON: 06/09/2020 HISTORY: Incidental finding of mass on RT lung found on [facility] at [facility] DLP: 475.0 mGycm Automated exposure control for dose reduction was used. TECHNIQUE: CT scan of the chest is performed with IV Contrast, patient injected with 100 ml mL of Isovue 300. M IP Images are created on CT scanner and reviewed. 3D reconstructed images are created on an [employer] workstation and reviewed. FINDINGS: LUNGS: The lungs are grossly clear, there is no concerning parenchymal mass or nodule identified. T here is no pleural effusion or pneumothorax seen. The tracheobronchial tree is patent. MEDIASTINUM: There are no greater than 1 cm hilar or mediastinal lymph nodes. Heart is enlarged. OTHER: Hypertrophic and degenerative changes spine IMPRESSION: Cardiomegaly.
== END | disposition home or self-care (01) ==
LOC: RADCTMAIN 17:12
PROVIDERS: ATTEND Family Medicine
DX: R91.8 Other nonspecific abnormal finding of lung field (principal); I51.7 Cardiomegaly
CPT/HCPCS: 71260; Q9967

== ENCOUNTER → 2023-04-07 | Outpatient (CLI) | payer BC ==
--- NOTE | 2023-04-09 08:43 | CA ---
Transthoracic Echo Report Name: Mango Nunez Age: 42 Gender: M : 1980 Exam Date: 04/07/2023 13:55 Exam Location: [facility] Ht (in): 73 Wt (lb): 195 Ordering Physician: Sophia Ornelas MD Attending/Referring Phys: Assistant Clinical Director Medina Castro [facility] Procedure CPT: Indications: W/bubble study; I51.7 CARDIOMEGALY Cardiac Hx: Normal sinus rhythm on EKG Technical Quality: Fair Contrast 1: Total Dose (mL): Contrast 2: Total Dose (mL): MEASUREMENTS (Male / Female) Normal Values 2D ECHO LV Diastolic Diameter PLAX 4.9 cm 4.2 - 5.9 / 3.9 - 5.3 cm LV Systolic Diameter PLAX 3.2 cm IVS Diastolic Thickness 0.9 cm 0.6 - 1.0 / 0.6 - 0.9 cm LVPW Diastolic Thickness 1.0 cm 0.6 - 1.0 / 0.6 - 0.9 cm LV Relative Wall Thickness 0.4 LVOT Diameter 2.1 cm Ascending Aorta Diameter 3.1 cm M-MODE Aortic Root Diameter MM 3.2 cm LA Systolic Diameter MM 3.8 cm LA Ao Ratio MM 1.2 AV Cusp Separation MM 2.2 cm DOPPLER AV Peak Velocity 128.2 cm/s AV Peak Gradient 6.6 mmHg AV Mean Velocity 83.7 cm/s AV Mean Gradient 3.2 mmHg AV Velocity Time Integral 19.4 cm LVOT Peak Velocity 120.6 cm/s LVOT Peak Gradient 5.8 mmHg LVOT Velocity Time Integral 21.3 cm LVOT Stroke Volume 72.9 cm??? LVOT Stroke Volume Index 34.3 ml/m??? LVOT Cardiac Index 2177.6 cm???/min???m??? AV Area Cont Eq vti 3.8 cm??? AV Area Cont Eq pk 3.2 cm??? Mitral E Point Velocity 85.7 cm/s Mitral A Point Velocity 60.4 cm/s Mitral E to A Ratio 1.4 MV Deceleration Time 202.1 ms LV E' Lateral Velocity 14.6 cm/s Mitral E to LV E' Lateral Ratio 5.9 LV E' Septal Velocity 10.5 cm/s Mitral E to LV E' Septal Ratio 8.1 TR Peak Velocity 168.9 cm/s TR Peak Gradient 11.4 mmHg Right Atrial Pressure 3.0 mmHg Pulmonary Artery Systolic Pressu 14.4 mmHg Right Ventricular Systolic Press 14.4 mmHg FINDINGS Left Ventricle Normal left ventricular size, wall thickness, systolic function with no obvious regional wall motion abnormalities. Normal left ventricular diastolic filling pattern for age. The ejection fraction is visually estimated at 55-60%. Right Ventricle Mild right ventricular dilatation. Right Atrium The right atrium is normal in size. Positive agitated saline bubble study for right to left shunt. Left Atrium The left atrium is normal in size. Mitral Valve Structurally normal mitral valve without significant stenosis or prolapse. There is no mitral regurgitation. Aortic Valve Structurally normal tricuspid aortic valve without significant sclerosis or stenosis. There is no aortic regurgitation. Tricuspid Valve Structurally normal tricuspid valve without significant stenosis. Trace tricuspid regurgitation. Pulmonic Valve Structurally normal pulmonic valve without significant stenosis. Trace pulmonic regurgitation. Pericardium Normal pericardium without effusion. Aorta Normal aortic root dimension. CONCLUSIONS Normal LV size, wall thickness and systolic function. Estimated LVEF Is 60% No obvious regional wall motion abnormality No significant diastolic dysfunction Mild right ventricular dilatation Positive bubble study with [id number] intracardiac shunting appreciated No prior echo to compare with Previewed by: Dr Alex Garner (Electronically Signed) Final Date: 08 April 2023 09:49
== END | disposition home or self-care (01) ==
LOC: RADECHMAIN 13:44
PROVIDERS: ATTEND Family Medicine
DX: I51.7 Cardiomegaly (principal)
CPT/HCPCS: 93306

== ENCOUNTER 2023-04-24 08:59 | Day surgery (SDC) | payer BC ==
[2023-04-22 10:57] VITALS: BMI 26.1
[2023-04-24] MEDS ORDERED: SODIUM CHLORIDE 0.9% 500 ML 500 ML IV ONE (09:30)
[2023-04-24 09:41] VITALS: RESP 16; TEMP 97.8
[2023-04-24] MEDS: BENZOCAINE SPRAY 1 CAN MUCOUS MEM ONE ×2 (10:38→10:43)
[2023-04-24] MEDS ORDERED: fentaNYL (PF) 50 MCG/ML 2 ML AMP IVP ONE (10:42)
[2023-04-24] MEDS ORDERED: MIDAZOLAM 2 MG/2 ML VIAL IVP ONE (10:42)
--- NOTE | 2023-04-24 11:16 | ECHOT ---
TRANSESOPHAGEAL ECHOCARDIOGRAM INDICATION: Abnormal 2D echo. HISTORY: This is a 42-year-old gentleman who recently underwent an MRI of the shoulder that revealed that he had an enlarged heart, went on to have a 2D echo with saline contrast study that showed [id number] shunt and a mildly enlarged right side. Due to this, he was advised to undergo transesophageal echo. PROCEDURE NOTE: After obtaining informed consent, transesophageal echocardiogram was performed in left lateral position using an Omniplane probe. Local and IV sedation were obtained using Xylocaine spray, Versed and fentanyl. He tolerated the procedure well without any obvious immediate complications. Total sedation time was 10 minutes. FINDINGS: 1. Interatrial septum: There is evidence of [id number] shunt by color-flow Doppler and [id number]-[id number] shunt by agitated saline contrast study with Valsalva maneuver. 2. Left atrium and left ventricle have normal size. 3. Left ventricle has normal function. 4. Right atrium and right ventricle appear mildly enlarged. 5. Mitral valve appears anatomically normal. There is mild mitral regurgitation noted. 6. Tricuspid valve appears normal. 7. Aortic valve is a 3-leaflet valve, is free of stenosis or regurgitation. CONCLUSIONS: This is an abnormal transesophageal echo that shows mildly dilated right atrium and right ventricle with evidence of [id number] shunt by color-flow Doppler and right-to- left shunt by agitated saline contrast study. PLAN: I am going to refer the patient to Dr. Dodson for further evaluation for possible Amplatz device closure, which is what the patient wishes to do. MMODL / IJN: [id number] /
[2023-04-24 12:27] VITALS: BP 121/72; PULSE 74
== END 2023-04-24 12:10 | disposition home or self-care (01) ==
LOC: CATHCVL 08:59
PROVIDERS: ATTEND Internal Medicine Cardiovascular Disease
DX: I34.0 Nonrheumatic mitral (valve) insufficiency (principal); F17.210 Nicotine dependence, cigarettes, uncomplicated; Z82.49 Family history of ischemic heart disease and other diseases of the circulatory system; Z79.899 Other long term (current) drug therapy
CPT/HCPCS: 93312; 93320; 93325; J2250; J3010

== ENCOUNTER 2023-11-25 08:29 | Emergency (ER) | payer BC ==
--- NOTE | 2023-11-25 08:57 | ED ---
General Adult HPI - General Chief complaint: Neuro Symptoms/Deficit Stated complaint: Neuro Symptoms Time Seen by Provider: 11/25/23 08:36 Source: patient, RN notes reviewed, old records reviewed Mode of arrival: ambulatory Limitations: no limitations - History of Present Illness Initial comments: 43-year-old male history of previous TIA presenting for evaluation of sudden onset numbness to his right hand and on the right side of his tongue as well as vision changes. This occurred approximately 1 hour prior to arrival. Patient states that symptoms have resolved with the exception of some perioral numbness which is bilateral. Patient has a known history of PFO and is currently on Plavix. Follows at [facility]. He does report a headache associated with symptoms. No prior history of migraine headache. - Related Data Home Medications Medication Instructions Recorded Confirmed Clopidogrel Bisulfate [Clopidogrel] 75 mg PO HS 11/25/23 11/25/23 Allergies Allergy/AdvReac Type Severity Reaction Status Date / Time bee venom protein (honey bee) Allergy Anaphylaxis Verified 11/25/23 09:43 dextromethorphan Allergy Anaphylaxis Verified 11/25/23 09:43 diphenhydramine HCl Allergy Anaphylaxis Verified 11/25/23 09:43 [From Benadryl] prednisone AdvReac Bradycardia-Junctional Verified 11/25/23 09:43 rhythm-elevated LFTs Review of Systems ROS Statement: Those systems with pertinent positive or pertinent negative responses have been documented in the HPI. ROS Other: All systems not noted in ROS Statement are negative. Past Medical History Past Medical History: CVA/TIA Additional Past Medical History / Comment(s): back pain, TIA, high heart rate in 10/2019 had negative stress, bulging discs, February 2020 bradycardia History of Any Multi-Drug Resistant Organisms: None Reported Past Surgical History: Orthopedic Surgery Additional Past Surgical History / Comment(s): L knee surgery Past Anesthesia/Blood Transfusion Reactions: No Reported Reaction Past Psychological History: No Psychological Hx Reported Smoking Status: Former smoker Past Alcohol Use History: Rare Past Drug Use History: None Reported - Past Family History Father Family Medical History: Myocardial Infarction (OR) Mother Family Medical History: No Reported History Brother(s) Additional Family Medical History / Comment(s): superficial blood clots Daughter(s) Family Medical History: No Reported History Son(s) Additional Family Medical History / Comment(s): JMML- rare leukemia of the blood General Exam Limitations: no limitations General appearance: alert, in no apparent distress Head exam: Present: atraumatic, normocephalic Eye exam: Present: normal appearance, PERRL, EOMI ENT exam: Present: normal exam Neck exam: Present: normal inspection. Absent: tenderness, meningismus Respiratory exam: Present: normal lung sounds bilaterally. Absent: respiratory distress, wheezes Cardiovascular Exam: Present: regular rate, normal rhythm GI/Abdominal exam: Present: soft. Absent: distended, tenderness Extremities exam: Present: normal inspection, normal capillary refill Neurological exam: Present: alert, oriented X3, CN II-XII intact, other (NIH is 0). Absent: motor sensory deficit Skin exam: Present: warm, dry, intact. Absent: cyanosis, diaphoretic Course Vital Signs 11/25/23 11/25/23 08:31 10:07 Temperature 98 F Pulse Rate 75 68 Respiratory 18 18 Rate Blood Pressure 155/84 126/77 O2 Sat by Pulse 100 98 Oximetry Medical Decision Making - Medical Decision Making Was pt. sent in by a medical professional or institution (, PA, BLOCK CLEANER, urgent care, hospital, or senior care...) When possible be specific @ -No Did you speak to anyone other than the patient for history (EMS, parent, family, police, friend...)? What history was obtained from this source @ -No Did you review nursing and triage notes (agree or disagree)? Why? @ -I reviewed and agree with nursing and triage notes Were old charts reviewed (outside hosp., previous admission, EMS record, old EKG, old radiological studies, urgent care reports/EKG's, senior care records)? Report findings @ -No old charts were reviewed Differential Diagnosis (chest pain, altered mental status, abdominal pain women, abdominal pain men, vaginal bleeding, weakness, fever, dyspnea, syncope, headache, dizziness, GI bleed, back pain, seizure, CVA, palpatations, mental health, musculoskeletal)? @ -[ differential CVA Ischemic stroke, hemorrhagic stroke, brain tumor, atypical migraine, Wernicke's encephalopathy, seizure, multiple sclerosis, meningitis, encephalitis, hypoglycemia, Guillain-Soto, electrolytes disturbance, myasthenia gravis.... This is not meant to be an all-inclusive list EKG interpreted by me (3pts min.). @EKG: Sinus rhythm rate of 88, NE interval 174, QRS duration 84, QTc 389, incomplete right bundle branch block. X-rays interpreted by me (1pt min.). @ -None done CT interpreted by me (1pt min.). @ -[CT brain negative for intracranial hemorrhage or mass effect, no acute findings. U/S interpreted by me (1pt. min.). @ -None done What testing was considered but not performed or refused? (CT, X-rays, U/S, labs)? Why? @ -None What meds were considered but not given or refused? Why? @ -None Did you discuss the management of the patient with other professionals (professionals i.e. , PA, BLOCK CLEANER, lab, RT, psych nurse, social media campaign manager, paste maker, teacher, chief marketing officer, binder caser)? Give summary @ -No Was smoking cessation discussed for >3mins.? @ -No Was critical care preformed (if so, how long)? @ -No Were there social determinants of health that impacted care today? How? (Homelessness, low income, unemployed, alcoholism, drug addiction, transportation, low edu. Level, literacy, decrease access to med. care, usp, rehab)? @ -No Was there de-escalation of care discussed even if they declined (Discuss DNR or withdrawal of care, Hospice)? DNR status @ -No What co-morbidities impacted this encounter? (DM, HTN, Smoking, COPD, CAD, Cancer, CVA, ARF, Chemo, Hep., AIDS, mental health diagnosis, sleep apnea, morbid obesity)? @PFO, previous TIA Was patient admitted / discharged? Hospital course, mention meds given and route, prescriptions, significant lab abnormalities, going to OR and other pertinent info. @ -43-year-old male with an episode of right facial and right arm numbness and tingling. Resolved upon arrival. Patient has previous history of similar symptoms and has had extensive workup at [facility]. He states that MRI imaging of the brain has not found any acute abnormalities. This history is obtained from the patient only. Vital signs are stable. Is in sinus rhythm. He has normal CBC, normal CMP. Head CT was performed which is negative for intracranial hemorrhage or mass effect. I did offer patient observation for MRI and neurology consultation. Patient declines. He will follow-up with his team at [facility]. He is instructed to return to the emergency department with any worsening or changing symptoms. Undiagnosed new problem with uncertain prognosis? @ -No Drug Therapy requiring intensive monitoring for toxicity (Heparin, Nitro, Insulin, Cardizem)? @ -No Were any procedures done? @ -No Diagnosis/symptom? @ -Paresthesia, possible TIA Acute, or Chronic, or Acute on Chronic? @ -Acute Uncomplicated (without systemic symptoms) or Complicated (systemic symptoms)? @ -Default Side effects of treatment? @ -No Exacerbation, Progression, or Severe Exacerbation? @ -No Poses a threat to life or bodily function? How? (Chest pain, USA, OR, pneumonia, PE, COPD, DKA, ARF, appy, cholecystitis, CVA, Diverticulitis, Homicidal, Suicidal, threat to staff... and all critical care pts) @ -[Low risk at this time - Lab Data Result diagrams: 11/25/23 08:43 11/25/23 08:43 Lab Results 11/25/23 11/25/23 11/25/23 Range/Units 08:43 08:43 08:43 WBC 6.3 (3.8-10.6) k/uL RBC 5.01 (4.30-5.90) m/uL Hgb 14.7 (13.0-17.5) gm/dL Hct 44.0 (39.0-53.0) % MCV 87.9 (80.0-100.0) fL MCH 29.4 (25.0-35.0) pg MCHC 33.5 (31.0-37.0) g/dL RDW 13.5 (11.5-15.5) % Plt Count 165 (150-450) k/uL MPV 8.3 Neutrophils % 61 % Lymphocytes % 27 % Monocytes % 6 % Eosinophils % 2 % Basophils % 1 % Neutrophils # 3.8 (1.3-7.7) k/uL Lymphocytes # 1.7 (1.0-4.8) k/uL Monocytes # 0.4 (0-1.0) k/uL Eosinophils # 0.1 (0-0.7) k/uL Basophils # 0.1 (0-0.2) k/uL PT 11.1 (10.0-12.5) sec INR 1.0 (<1.2) APTT 23.9 (22.0-30.0) sec Sodium 139 (137-145) mmol/L Potassium 4.5 (3.5-5.1) mmol/L Chloride 107 (98-107) mmol/L Carbon Dioxide 22 (22-30) mmol/L Anion Gap 10 mmol/L BUN 14 (9-20) mg/dL Creatinine 0.98 (0.66-1.25) mg/dL Est GFR (CKD-EPI)AfAm >90 (>60 ml/min/1.73 sqM) Est GFR (CKD-EPI)NonAf >90 (>60 ml/min/1.73 sqM) Glucose 102 H (74-99) mg/dL Calcium 9.2 (8.4-10.2) mg/dL Total Bilirubin 1.1 (0.2-1.3) mg/dL AST 49 (17-59) U/L ALT 38 (4-49) U/L Alkaline Phosphatase 40 (38-126) U/L Creatine Kinase 170 (55-170) U/L Troponin I (0.000-0.034) ng/mL Total Protein 7.0 (6.3-8.2) g/dL Albumin 4.6 (3.5-5.0) g/dL 11/25/23 Range/Units 08:43 WBC (3.8-10.6) k/uL RBC (4.30-5.90) m/uL Hgb (13.0-17.5) gm/dL Hct (39.0-53.0) % MCV (80.0-100.0) fL MCH (25.0-35.0) pg MCHC (31.0-37.0) g/dL RDW (11.5-15.5) % Plt Count (150-450) k/uL MPV Neutrophils % % Lymphocytes % % Monocytes % % Eosinophils % % Basophils % % Neutrophils # (1.3-7.7) k/uL Lymphocytes # (1.0-4.8) k/uL Monocytes # (0-1.0) k/uL Eosinophils # (0-0.7) k/uL Basophils # (0-0.2) k/uL PT (10.0-12.5) sec INR (<1.2) APTT (22.0-30.0) sec Sodium (137-145) mmol/L Potassium (3.5-5.1) mmol/L Chloride (98-107) mmol/L Carbon Dioxide (22-30) mmol/L Anion Gap mmol/L BUN (9-20) mg/dL Creatinine (0.66-1.25) mg/dL Est GFR (CKD-EPI)AfAm (>60 ml/min/1.73 sqM) Est GFR (CKD-EPI)NonAf (>60 ml/min/1.73 sqM) Glucose (74-99) mg/dL Calcium (8.4-10.2) mg/dL Total Bilirubin (0.2-1.3) mg/dL AST (17-59) U/L ALT (4-49) U/L Alkaline Phosphatase (38-126) U/L Creatine Kinase (55-170) U/L Troponin I <0.012 (0.000-0.034) ng/mL Total Protein (6.3-8.2) g/dL Albumin (3.5-5.0) g/dL Disposition Clinical Impression: Paresthesia Disposition: HOME SELF-CARE Condition: Fair Instructions (If sedation given, give patient instructions): Paresthesia (ED) Additional Instructions: Please monitor symptoms closely. Please follow with your team at [facility]. Please return to the emergency department with worsening or changing symptoms. Is patient prescribed a controlled substance at d/c from ED?: No Referrals: Sophia Ornelas MD [Primary Care Provider] - 1-2 days Time of Disposition: 10:18
[2023-11-25 09:11] VITALS: TEMP 98
[2023-11-25 09:18] LABS: Basophils # (A) 0.1 k/uL (0-0.2); Basophils % (A) 1 %; Eosinophils # (A) 0.1 k/uL (0-0.7); Eosinophils % (A) 2 %; HGB 14.7 gm/dL (13.0-17.5); Lymphocytes # (A) 1.7 k/uL (1.0-4.8); Lymphocytes % (A) 27 %; MCH 29.4 pg (25.0-35.0); MCHC 33.5 g/dL (31.0-37.0); MCV 87.9 fL (80.0-100.0); Mean Platelet Volume 8.3; Monocytes # (A) 0.4 k/uL (0-1.0); Monocytes % (A) 6 %; Neutrophils # (A) 3.8 k/uL (1.3-7.7); Neutrophils % (A) 61 %; Platelet Count 165 k/uL (150-450); RBC 5.01 m/uL (4.30-5.90); RDW 13.5 % (11.5-15.5); WBC 6.3 k/uL (3.8-10.6)
--- NOTE | 2023-11-25 09:19 | CT ---
EXAMINATION TYPE: CT brain wo con DATE OF EXAM: 11/25/2023 COMPARISON: 06/09/2020 HISTORY: 43-year-old male neurologic deficit, acute, stroke suspected, Rt hand and tongue numbness TECHNIQUE: Examination was done in axial plane without intravenous contrast. Coronal and sagittal r econstructions performed. CT DLP: 1183.4 mGycm Automated exposure control for dose reduction was used. FINDINGS: There is no evidence of acute intracranial hemorrhage, acute ischemic changes, mass, mass-effect, or extra-axial fluid collection. There is no effacement of cerebral sulci or basal subarachnoid cister ns. There is no hydrocephalus. There is no midline shift. Clayton-white matter distinction is preserv ed. Moderate mucosal thickening anterior right ethmoid air cells. Frothy air-fluid level right maxillary sinus. Mastoid air cells well pneumatized. Orbits and globes are intact. IMPRESSION: 1. No acute intracranial abnormality seen. 2. Correlate for acute right maxillary sinusitis.
[2023-11-25 09:40] LABS: Partial Thromboplastin Time 23.9 sec (22.0-30.0); Prothrombin Time 11.1 sec (10.0-12.5)
[2023-11-25 09:41] LABS: ALT 38 U/L (4-49); AST 49 U/L (17-59); African American GFR (CKD) >90 (>60 ml/min/1.73 sqM); Albumin 4.6 g/dL (3.5-5.0); Alkaline Phosphatase 40 U/L (38-126); Anion Gap 10 mmol/L; Blood Urea Nitrogen 14 mg/dL (9-20); Calcium 9.2 mg/dL (8.4-10.2); Carbon Dioxide 22 mmol/L (22-30); Chloride 107 mmol/L (98-107); Creatine Kinase 170 U/L (55-170); Glucose 102 mg/dL (74-99); Non-African American GFR(CKD) >90 (>60 ml/min/1.73 sqM); Sodium 139 mmol/L (137-145); Total Bilirubin 1.1 mg/dL (0.2-1.3)
[2023-11-25 09:42] LABS: Potassium 4.5 mmol/L (3.5-5.1)
[2023-11-25 10:57] VITALS: BP 126/84; PULSE 72; RESP 16
== END 2023-11-25 10:44 | disposition home or self-care (01) ==
LOC: EC 08:29
DX: R20.2 Paresthesia of skin (principal); Z87.891 Personal history of nicotine dependence; Z88.8 Allergy status to other drugs, medicaments and biological substances; Z91.030 Bee allergy status; Z86.73 Personal history of transient ischemic attack (TIA), and cerebral infarction without residual deficits
CPT/HCPCS: 36415; 70450; 80053; 82550; 84484; 85025; 85610; 85730; 93005; 99284

== ENCOUNTER 2024-08-03 21:09 | Emergency (ER) | payer BC ==
--- NOTE | 2024-08-03 21:27 | ED ---
General Adult HPI - General Chief complaint: Chest Pain Stated complaint: Chest Pain,Sob Time Seen by Provider: 08/03/24 21:12 Source: patient, RN notes reviewed, old records reviewed Mode of arrival: wheelchair Limitations: no limitations - History of Present Illness Initial comments: 44-year-old male presenting with lower chest pain. Patient has no prior history of CAD. He states the pain began this morning after drinking coffee. He states it has been present throughout the day today. Patient states that within the past several years he has had a coronary calcium CT which he states was 0. He also reports left arm pain but states this has been present for the past 2 days and is worse with movement. No vomiting. No diaphoresis. - Related Data Home Medications Medication Instructions Recorded Confirmed Clopidogrel Bisulfate [Clopidogrel] 75 mg PO HS 11/25/23 11/25/23 Allergies Allergy/AdvReac Type Severity Reaction Status Date / Time bee venom protein (honey bee) Allergy Anaphylaxis Verified 08/03/24 21:13 dextromethorphan Allergy Anaphylaxis Verified 08/03/24 21:13 diphenhydramine HCl Allergy Anaphylaxis Verified 08/03/24 21:13 [From Benadryl] prednisone AdvReac Bradycardia-Junctional Verified 08/03/24 21:13 rhythm-elevated LFTs Review of Systems ROS Statement: Those systems with pertinent positive or pertinent negative responses have been documented in the HPI. ROS Other: All systems not noted in ROS Statement are negative. Past Medical History Past Medical History: CVA/TIA Additional Past Medical History / Comment(s): back pain, TIA, high heart rate in 10/2019 had negative stress, bulging discs, February 2020 bradycardia History of Any Multi-Drug Resistant Organisms: None Reported Past Surgical History: Orthopedic Surgery Additional Past Surgical History / Comment(s): L knee surgery Past Anesthesia/Blood Transfusion Reactions: No Reported Reaction Past Psychological History: No Psychological Hx Reported Smoking Status: Former smoker Past Alcohol Use History: Rare Past Drug Use History: None Reported - Past Family History Father Family Medical History: Myocardial Infarction (OR) Mother Family Medical History: No Reported History Brother(s) Additional Family Medical History / Comment(s): superficial blood clots Daughter(s) Family Medical History: No Reported History Son(s) Additional Family Medical History / Comment(s): JMML- rare leukemia of the blood General Exam Limitations: no limitations General appearance: alert, in no apparent distress Head exam: Present: atraumatic, normocephalic Eye exam: Present: normal appearance, PERRL ENT exam: Present: normal exam Neck exam: Present: normal inspection. Absent: tenderness, meningismus Respiratory exam: Present: normal lung sounds bilaterally. Absent: respiratory distress, wheezes Cardiovascular Exam: Present: regular rate, normal rhythm GI/Abdominal exam: Present: soft. Absent: distended, tenderness Extremities exam: Present: normal inspection, normal capillary refill Neurological exam: Present: alert, oriented X3 Psychiatric exam: Present: normal affect, normal mood Skin exam: Present: warm, dry, intact. Absent: cyanosis, diaphoretic Course Vital Signs 08/03/24 21:10 Temperature 97.6 F Pulse Rate 80 Respiratory 18 Rate Blood Pressure 152/102 O2 Sat by Pulse 99 Oximetry Medical Decision Making - Medical Decision Making Was pt. sent in by a medical professional or institution (, PA, SECONDARY SCHOOL PRINCIPAL, urgent care, hospital, or [facility]...) When possible be specific @ -No Did you speak to anyone other than the patient for history (EMS, parent, family, police, friend...)? What history was obtained from this source @ -No Did you review nursing and triage notes (agree or disagree)? Why? @ -I reviewed and agree with nursing and triage notes Were old charts reviewed (outside hosp., previous admission, EMS record, old EKG, old radiological studies, urgent care reports/EKG's, [facility] records)? Report findings @ -No old charts were reviewed Differential Diagnosis (chest pain, altered mental status, abdominal pain women, abdominal pain men, vaginal bleeding, weakness, fever, dyspnea, syncope, headache, dizziness, GI bleed, back pain, seizure, CVA, palpatations, mental health, musculoskeletal)? @ -Not applicable EKG interpreted by me (3pts min.). @Sinus rhythm rate of 73, IA interval 177, QRS duration 89, QTc 389 T wave inversion in lead III no ST segment elevation X-rays interpreted by me (1pt min.). @Chest x-ray negative for acute cardiopulmonary findings CT interpreted by me (1pt min.). @ -None done U/S interpreted by me (1pt. min.). @ -None done What testing was considered but not performed or refused? (CT, X-rays, U/S, labs)? Why? @ -None What meds were considered but not given or refused? Why? @ -None Did you discuss the management of the patient with other professionals (professionals i.e. , PA, SECONDARY SCHOOL PRINCIPAL, lab, RT, psych nurse, sexual assault social worker, alarm security or surveillance monitor, teacher, staff submarine warfare officer, binder caser)? Give summary @ -No Was smoking cessation discussed for >3mins.? @ -No Was critical care preformed (if so, how long)? @ -No Were there social determinants of health that impacted care today? How? (Homelessness, low income, unemployed, alcoholism, drug addiction, transportation, low edu. Level, literacy, decrease access to med. care, longterm, rehab)? @ -No Was there de-escalation of care discussed even if they declined (Discuss DNR or withdrawal of care, Hospice)? DNR status @ -No What co-morbidities impacted this encounter? (DM, HTN, Smoking, COPD, CAD, Cancer, CVA, ARF, Chemo, Hep., AIDS, mental health diagnosis, sleep apnea, morbid obesity)? @ -None Was patient admitted / discharged? Hospital course, mention meds given and route, prescriptions, significant lab abnormalities, going to OR and other pertinent info. @ -[44-year-old male with lower chest pain after drinking coffee. No alarming features on history or physical exam. EKG is sinus without ST segment elevation. Chest x-ray is clear. Patient has normal CBC, normal CMP, negative troponin. Patient does feel better on reevaluation. Patient given return parameters and will follow-up with his primary care provider. He will take omeprazole OTC. Undiagnosed new problem with uncertain prognosis? @ -No Drug Therapy requiring intensive monitoring for toxicity (Heparin, Nitro, Insulin, Cardizem)? @ -No Were any procedures done? @ -No Diagnosis/symptom? @Chest pain Acute, or Chronic, or Acute on Chronic? @ -[Acute Uncomplicated (without systemic symptoms) or Complicated (systemic symptoms)? @ -Default Side effects of treatment? @ -No Exacerbation, Progression, or Severe Exacerbation? @ -No Poses a threat to life or bodily function? How? (Chest pain, USA, OR, pneumonia, PE, COPD, DKA, ARF, appy, cholecystitis, CVA, Diverticulitis, Homicidal, Suicidal, threat to staff... and all critical care pts) @Low risk - Lab Data Result diagrams: 08/03/24 21:30 08/03/24 21:30 Lab Results 08/03/24 08/03/24 08/03/24 Range/Units 21:30 21:30 21:30 WBC 8.3 (3.8-10.6) k/uL RBC 4.87 (4.30-5.90) m/uL Hgb 14.2 (13.0-17.5) gm/dL Hct 42.1 (39.0-53.0) % MCV 86.3 (80.0-100.0) fL MCH 29.1 (25.0-35.0) pg MCHC 33.7 (31.0-37.0) g/dL RDW 12.8 (11.5-15.5) % Plt Count 191 (150-450) k/uL MPV 7.2 Neutrophils % 57 % Lymphocytes % 32 % Monocytes % 5 % Eosinophils % 2 % Basophils % 1 % Neutrophils # 4.8 (1.3-7.7) k/uL Lymphocytes # 2.7 (1.0-4.8) k/uL Monocytes # 0.4 (0-1.0) k/uL Eosinophils # 0.2 (0-0.7) k/uL Basophils # 0.1 (0-0.2) k/uL PT 11.0 (10.0-12.5) sec INR 1.0 (<1.2) APTT 25.6 (22.0-30.0) sec D-Dimer <0.17 (<0.60) mg/L FEU Sodium 138 (137-145) mmol/L Potassium 3.9 (3.5-5.1) mmol/L Chloride 104 (98-107) mmol/L Carbon Dioxide 28 (22-30) mmol/L Anion Gap 6 mmol/L BUN 15 (9-20) mg/dL Creatinine 0.94 (0.66-1.25) mg/dL Est GFR (CKD-EPI)AfAm >90 (>60 ml/min/1.73 sqM) Est GFR (CKD-EPI)NonAf >90 (>60 ml/min/1.73 sqM) Glucose 96 (74-99) mg/dL Calcium 9.0 (8.4-10.2) mg/dL Magnesium 2.1 (1.6-2.3) mg/dL Total Bilirubin 0.4 (0.2-1.3) mg/dL AST 49 (17-59) U/L ALT 55 H (4-49) U/L Alkaline Phosphatase 42 (38-126) U/L Troponin I (0.000-0.034) ng/mL Total Protein 6.8 (6.3-8.2) g/dL Albumin 4.5 (3.5-5.0) g/dL 08/03/24 Range/Units 21:30 WBC (3.8-10.6) k/uL RBC (4.30-5.90) m/uL Hgb (13.0-17.5) gm/dL Hct (39.0-53.0) % MCV (80.0-100.0) fL MCH (25.0-35.0) pg MCHC (31.0-37.0) g/dL RDW (11.5-15.5) % Plt Count (150-450) k/uL MPV Neutrophils % % Lymphocytes % % Monocytes % % Eosinophils % % Basophils % % Neutrophils # (1.3-7.7) k/uL Lymphocytes # (1.0-4.8) k/uL Monocytes # (0-1.0) k/uL Eosinophils # (0-0.7) k/uL Basophils # (0-0.2) k/uL PT (10.0-12.5) sec INR (<1.2) APTT (22.0-30.0) sec D-Dimer (<0.60) mg/L FEU Sodium (137-145) mmol/L Potassium (3.5-5.1) mmol/L Chloride (98-107) mmol/L Carbon Dioxide (22-30) mmol/L Anion Gap mmol/L BUN (9-20) mg/dL Creatinine (0.66-1.25) mg/dL Est GFR (CKD-EPI)AfAm (>60 ml/min/1.73 sqM) Est GFR (CKD-EPI)NonAf (>60 ml/min/1.73 sqM) Glucose (74-99) mg/dL Calcium (8.4-10.2) mg/dL Magnesium (1.6-2.3) mg/dL Total Bilirubin (0.2-1.3) mg/dL AST (17-59) U/L ALT (4-49) U/L Alkaline Phosphatase (38-126) U/L Troponin I <0.012 (0.000-0.034) ng/mL Total Protein (6.3-8.2) g/dL Albumin (3.5-5.0) g/dL Disposition Clinical Impression: Chest pain Disposition: HOME SELF-CARE Condition: Fair Instructions (If sedation given, give patient instructions): Chest Pain (ED) Additional Instructions: Take [id number] omeprazole. Please return with worsening or changing symptoms Is patient prescribed a controlled substance at d/c from ED?: No Referrals: Sophia Ornelas MD [Primary Care Provider] - 1-2 days Time of Disposition: 22:49
[2024-08-03] MEDS: MAG HYDROX/AL HYDROX/SIMETH 30 ML, HYOSCYAMINE ELIXIR 10 ML, LIDOCAINE VISCOUS 2% 10 ML PO STA (21:50)
[2024-08-03 21:51] LABS: Basophils # (A) 0.1 k/uL (0-0.2); Basophils % (A) 1 %; Eosinophils # (A) 0.2 k/uL (0-0.7); Eosinophils % (A) 2 %; HCT 42.1 % (39.0-53.0); HGB 14.2 gm/dL (13.0-17.5); Lymphocytes # (A) 2.7 k/uL (1.0-4.8); Lymphocytes % (A) 32 %; MCH 29.1 pg (25.0-35.0); MCHC 33.7 g/dL (31.0-37.0); MCV 86.3 fL (80.0-100.0); Mean Platelet Volume 7.2; Monocytes # (A) 0.4 k/uL (0-1.0); Monocytes % (A) 5 %; Neutrophils # (A) 4.8 k/uL (1.3-7.7); Neutrophils % (A) 57 %; Platelet Count 191 k/uL (150-450); RBC 4.87 m/uL (4.30-5.90); RDW 12.8 % (11.5-15.5); WBC 8.3 k/uL (3.8-10.6)
--- NOTE | 2024-08-03 21:51 | XR ---
EXAMINATION TYPE: XR chest 2V DATE OF EXAM: 08/03/2024 9:45 PM COMPARISON: Chest radiographs from 10/25/2022 CLINICAL INDICATION: Male, 44 years old with history of Chest Pain; TECHNIQUE: XR chest 2V Frontal and lateral views of the chest. FINDINGS: Lungs/Pleura: There is no evidence of pleural effusion, focal consolidation, or pneumothorax. Pulmonary vascularity: Unremarkable. Heart/mediastinum: Cardiomediastinal silhouette is unremarkable. Musculoskeletal: No acute osseous pathology. IMPRESSION: No acute cardiopulmonary disease/process. [facility] Willem Zuluaga, , 08/03/2024 9:49 PM
[2024-08-03 22:02] LABS: ALT 55 U/L (4-49); AST 49 U/L (17-59); African American GFR (CKD) >90 (>60 ml/min/1.73 sqM); Albumin 4.5 g/dL (3.5-5.0); Alkaline Phosphatase 42 U/L (38-126); Anion Gap 6 mmol/L; Blood Urea Nitrogen 15 mg/dL (9-20); Carbon Dioxide 28 mmol/L (22-30); Chloride 104 mmol/L (98-107); Glucose 96 mg/dL (74-99); Magnesium 2.1 mg/dL (1.6-2.3); Non-African American GFR(CKD) >90 (>60 ml/min/1.73 sqM); Potassium 3.9 mmol/L (3.5-5.1); Sodium 138 mmol/L (137-145); Total Bilirubin 0.4 mg/dL (0.2-1.3); Total Protein 6.8 g/dL (6.3-8.2)
[2024-08-03 22:07] LABS: Partial Thromboplastin Time 25.6 sec (22.0-30.0)
[2024-08-03 23:19] VITALS: BP 124/88; PULSE 58; RESP 16; TEMP 98.2
== END 2024-08-03 23:19 | disposition home or self-care (01) ==
LOC: EC 21:09
DX: R07.89 Other chest pain (principal); Z87.891 Personal history of nicotine dependence; Z88.8 Allergy status to other drugs, medicaments and biological substances; Z91.030 Bee allergy status; Z86.73 Personal history of transient ischemic attack (TIA), and cerebral infarction without residual deficits
CPT/HCPCS: 36415; 71046; 80053; 83735; 84484; 85025; 85379; 85610; 85730; 93005; 99285

== ENCOUNTER → 2024-08-25 | Outpatient (CLI) | payer BC ==
--- NOTE | 2024-08-25 10:28 | US ---
EXAMINATION TYPE: US abdomen complete DATE OF EXAM: 08/25/2024 COMPARISON: NONE CLINICAL INDICATION: Male, 44 years old with history of R10.10 UPPER ABD PAIN; RUQ pain for the past 3 weeks, increase in gas, heartburn, pain after eating, left shoulder pain, HIDA scan Sep 03 TECHNIQUE: Grayscale and color Doppler imaging of the abdomen was performed. FINDINGS: EXAM MEASUREMENTS: Liver Length: 15.5 cm Gallbladder Wall: 0.3 cm CBD: 0.5 cm, color Doppler imaging was utilized to isolate the common bile duct for measurement. Spleen: 11.7 cm Right Kidney: 11.3 x 5.8 x 6.4 cm Left Kidney: 11.8 x 4.5 x 5.3 cm LOSS PREVENTION RESEARCH ENGINEER NOTES: bowel gas limits study Pancreas: not seen due to gas Liver: intercostal imaging due to gas Gallbladder: wnl Evidence for sonographic Wallace's sign: no CBD: wnl Spleen: wnl Right Kidney: wnl Left Kidney: wnl Upper IVC: wnl Abd Aorta: wnl The liver is homogenous. The intrahepatic portion of the IVC and proximal abdominal aorta are within normal limits. There is no evidence of cholelithiasis. Common bile duct is unremarkable. The visu alized portions of the pancreas are homogenous. The spleen is unremarkable. Kidneys are symmetric a nd free of hydronephrosis. No renal lesions are seen. IMPRESSION: No evidence for acute abdominal process. [facility] Willem Zuluaga, , 08/25/2024 10:26 AM
== END | disposition home or self-care (01) ==
LOC: RADUSWWP 08:39
PROVIDERS: ATTEND Family Medicine
DX: R12 Heartburn (principal); R10.10 Upper abdominal pain, unspecified; M25.512 Pain in left shoulder
CPT/HCPCS: 76700

== ENCOUNTER → 2024-09-03 | Outpatient (CLI) | payer BC ==
--- NOTE | 2024-09-03 15:46 | NM ---
EXAMINATION TYPE: NM hepatobiliary w EF DATE OF EXAM: 09/03/2024 3:40 PM COMPARISON: 05/21/2022 CLINICAL INDICATION:Male, 44 years old with history of R10.10 uper abd pain; TECHNIQUE: The patient was given 4.4 mCi of Technetium 99m-Mebrofenin as a radiotracer and multiple scintigraphic images were obtained of the abdomen. Gallbladder function was also assessed after the a dministration of ensure drink and additional scintigraphic images were obtained of the abdomen. A reg ion of interest was drawn over the gallbladder and a timing activity curve was generated. The gallbla dder ejection fraction was calculated. FINDINGS: Normal uptake of radiotracer was identified within the liver with excretion into the hepatic and comm on biliary ducts within 240 sec. There was normal progressive washout of the liver over the course of the study. Radiotracer uptake within the gallbladder at 8 minutes as well as small bowel activity wa s identified at 10 minutes. Maximum calculated gallbladder ejection fraction is: 69% at 30 minutes (Normal gallbladder ejection fraction is > 35%) IMPRESSION: 1. Normal hepatobiliary scan. 2. Normal ejection fraction. [facility], , 09/03/2024 3:44 PM
== END | disposition home or self-care (01) ==
LOC: RADNMMAIN 12:41
PROVIDERS: ATTEND Family Medicine
DX: R10.10 Upper abdominal pain, unspecified (principal)
CPT/HCPCS: 78226; A9537

== ENCOUNTER → 2025-01-01 | Outpatient (CLI) | payer OTHER ==
[2025-01-01 14:05] LABS: HCT 47.3 % (39.6-50.0); HGB 15.3 g/dL (13.0-17.0); MCH 28.4 pg (27.0-32.0); MCHC 32.3 g/dL (32.0-37.0); MCV 87.8 FL (80.0-97.0); Mean Platelet Volume 10.7 FL (9.5-12.2); NRBC Per 100 WBC 0 X 10*3/uL (0.00-0.01); Platelet Count 227 X 10*3/uL (140-440); RBC 5.39 X 10*6/uL (4.40-5.60); RDW 13.2 % (11.5-14.5); WBC 5.97 X 10*3/uL (4.50-10.00)
[2025-01-01 14:06] LABS: Basophils # (A) 0.06 X 10*3/uL (0.00-0.10); Eosinophils # (A) 0.09 X 10*3/uL (0.04-0.35); Eosinophils % (A) 1.5 %; Lymphocytes # (A) 1.94 X 10*3/uL (0.90-5.00); Lymphocytes % (A) 32.5 %; Monocytes # (A) 0.46 X 10*3/uL (0.20-1.00); Monocytes % (A) 7.7 %
[2025-01-01 14:12] LABS: BUN/Creat Ratio 9.64 Ratio (12.00-20.00); Blood Urea Nitrogen 10.6 mg/dL (9.0-27.0); Chol/HDL Ratio 3.48 Ratio; Glucose 107 mg/dL (70-110); LDL Cholesterol,Calculated 70.8 mg/dL (0.0-131.0)
[2025-01-01 14:13] LABS: ALT 46 U/L (10-49); AST 28 U/L (14-35); Albumin 4.7 g/dL (3.8-4.9); Albumin/Globulin Ratio 2.24 Ratio (1.60-3.17); Alkaline Phosphatase 49 U/L (41-126); Calcium 9.8 mg/dL (8.7-10.3); Carbon Dioxide 28.9 mmol/L (21.6-31.8); Chloride 102 mmol/L (96-109); Globulin 2.1 g/dL (1.6-3.3); Potassium 4.6 mmol/L (3.5-5.5); Sodium 141 mmol/L (135-145); Total Bilirubin 0.6 mg/dL (0.3-1.2); Total Protein 6.8 g/dL (6.2-8.2)
== END | disposition home or self-care (01) ==
LOC: LABWHC1 07:56
PROVIDERS: ATTEND Family Medicine
DX: E78.2 Mixed hyperlipidemia (principal); E55.9 Vitamin D deficiency, unspecified; E61.0 Copper deficiency; Q21.10 Atrial septal defect, unspecified; G60.9 Hereditary and idiopathic neuropathy, unspecified; N40.0 Benign prostatic hyperplasia without lower urinary tract symptoms; D51.9 Vitamin B12 deficiency anemia, unspecified; R73.9 Hyperglycemia, unspecified
CPT/HCPCS: 36415; 80053; 80061; 82306; 82525; 82607; 83036; 84153; 84443; 85025